=== PATIENT | female | born 1945 | race Caucasian/White ===

== ENCOUNTER → 2017-03-26 | Outpatient (CLI) | payer MEDICARE, OTHER ==
--- NOTE | 2017-03-26 15:56 | RADIOLOGY REPORT (SQ) ---
EXAM DESCRIPTION: CT CHEST WITHOUT COMPLETED DATE/TIME: 03/26/2017 1:25 pm REASON FOR STUDY: SOLITARY PULMOMARY NODULE R91.1 SOLITARY PULMONARY NODULE COMPARISON: Chest CT scan and PET-CT scan dated July 2016 TECHNIQUE: CT scan performed of the chest without intravenous contrast. Images reviewed with lung, soft tissue and bone windows. Reconstructed coronal and sagittal MPR images reviewed. All images st ored on PACS. All CT scanners at this facility use dose modulation, iterative reconstruction, and/or weight based d osing when appropriate to reduce radiation dose to as low as reasonably achievable (ALARA). [facility]: Dose Right [facility]: CareDose [facility]: Dose Right [facility]: Teradose 4D [facility]: [facility] RADIATION DOSE: 5.35 mGy. LIMITATIONS: No technical limitations. FINDINGS: LUNGS AND PLEURA: The previously described chronic appearing changes appears stable. No a cute consolidations or pleural effusions are identified. The previously described findings consisten t with pulmonary fibrosis in the periphery of both lower lobes appears stable. The previously descri bed spiculated nodule in the right upper lobe is again identified measuring 12.2 x 12.2 mm on the cur rent study. This nodule demonstrated increased metabolic activity on the previous PET-CT scan suspic ious for neoplastic process. No acute consolidations or pleural effusions are identified. HILAR AND MEDIASTINAL STRUCTURES: The previously described nonenlarged mediastinal lymph nodes appear s stable. HEART AND VASCULAR STRUCTURES: No aneurysm. No pericardial effusion. Coronary artery calcifications are identified. UPPER ABDOMEN: No significant findings. Limited exam. THYROID AND OTHER SOFT TISSUES: No masses. No adenopathy. BONES: No significant finding. HARDWARE: None in the chest. OTHER: No other significant findings. IMPRESSION: The previously described spiculated nodule in the right upper lobe is again identified a s noted above. This nodule demonstrated increased metabolic activity on the previous PET-CT scan susp icious for neoplastic process. No acute consolidations or pleural effusions are identified. The pre viously described chronic appearing changes appears stable. Other findings as noted above. TECHNICAL DOCUMENTATION: JOB ID: [id number] Quality ID # [id number]: Final reports with documentation of one or more dose reduction techniques (e.g., Au tomated exposure control, adjustment of the mA and/or kV according to patient size, use of iterative reconstruction technique) 2010 [employer]- All Rights Reserved
== END ==
LOC: RAD 12:59
PROVIDERS: ATTEND Internal Medicine
DX: R91.1 Solitary pulmonary nodule (principal)
CPT/HCPCS: 71250

== ENCOUNTER 2017-04-06 14:30 | Outpatient (CLI) | payer MEDICARE, OTHER ==
[~2017-04-06 14:30] MED LIST: ACETAMINOPHEN 325 MG TABLET PO PRN; DIPHENHYDRAMINE HCL 25 MG CAPSULE PO PRN; FUROSEMIDE INJ/PF 20 MG/2 ML SDV IV PRN; NORMAL SALINE 1000 ML 1,000 ML IV PRN
[2017-04-06 14:55] LABS: HEMATOCRIT 27.1 % (36.0-47.0); HGB HCT DIFFERENCE -0.1; MEAN CORPUSCULAR HGB CONC 33.2 g/dL (32.0-36.0); MEAN CORPUSCULAR VOLUME 91 fl (80-97); RED BLOOD COUNT 2.99 10^6/uL (3.72-5.28); RED CELL DISTRIBUTION WIDTH 14.7 % (11.5-14.0); WHITE BLOOD COUNT 6.5 10^3/uL (4.0-10.5)
[2017-04-06 23:16] VITALS: BP 135/59
== END 2017-04-06 23:22 | disposition home or self-care (01) ==
LOC: II 14:30 → 2N 15:10 → II 23:22
PROVIDERS: ATTEND Internal Medicine
PROC: 30233N1 Transfusion of Nonautologous Red Blood Cells into Peripheral Vein, Percutaneous Approach (ICD-10-PCS; principal; 2017-04-06)
DX: R68.89 Other general symptoms and signs (principal)
CPT/HCPCS: 86900; 86901; 36415; 36430; 86850; 86920; P9016; A9270 ×2

== ENCOUNTER → 2017-09-20 | Outpatient (CLI) | payer MEDICARE, OTHER ==
--- NOTE | 2017-09-20 14:52 | RADIOLOGY REPORT (SQ) ---
EXAM DESCRIPTION: CT CHEST WITHOUT COMPLETED DATE/TIME: 09/20/2017 7:51 am REASON FOR STUDY: SOLITARY PULMONARY NODULE (R91.1), OTHER DISORDER OF LUNG (J98.4) R91.1 SOLITARY PULMONARY NODULE J98.4 OTHER DISORDERS OF LUNG COMPARISON: CT chest 07/20/2016, 03/26/2017 PET-CT 07/31/2016 TECHNIQUE: CT scan performed of the chest without intravenous contrast. Images reviewed with lung, soft tissue and bone windows. Reconstructed coronal and sagittal MPR images reviewed. All images st ored on PACS. All CT scanners at this facility use dose modulation, iterative reconstruction, and/or weight based d osing when appropriate to reduce radiation dose to as low as reasonably achievable (ALARA). [facility]: Dose Right [facility]: CareDose [facility]: Dose Right [facility]: Teradose 4D [facility]: [employer] RADIATION DOSE: Up-to-date CT equipment and radiation dose reduction techniques were employed. CTDIv ol: 5.6 mGy. DLP: 197 mGy-cm. mGy. LIMITATIONS: No technical limitations. FINDINGS: LUNGS AND PLEURA: On axial image 42, an 8 x 6 mm spiculated nodule is present in the right upper lobe with adjacent radiotherapy treatment markers (was 1.2 x 1.2 cm in size 03/26/2017). Remainder of the lungs demonstrate advanced changes of obstructive lung disease, diffuse peripheral p ulmonary fibrosis. No acute infiltrates. No pleural effusion. No pneumothorax. HILAR AND MEDIASTINAL STRUCTURES: 1.5 x 1.2 cm precarinal lymph node is present on axial image 22, un changed from 03/26/2017. Small hiatal hernia HEART AND VASCULAR STRUCTURES: No aneurysm. No pericardial effusion. Coronary stents are present UPPER ABDOMEN: Clips post cholecystectomy THYROID AND OTHER SOFT TISSUES: No masses. No adenopathy. BONES: Osteopenic. Multilevel thoracic degenerative disc changes. HARDWARE: None in the chest. OTHER: No other significant findings. IMPRESSION: Treatment response, with decrease in size of right upper lobe nodule compared to previou s CT exam 03/26/2017 TECHNICAL DOCUMENTATION: JOB ID: [id number] Quality ID # [id number]: Final reports with documentation of one or more dose reduction techniques (e.g., Au tomated exposure control, adjustment of the mA and/or kV according to patient size, use of iterative reconstruction technique) 2010 [employer]- All Rights Reserved
== END ==
LOC: RAD 07:35
PROVIDERS: ATTEND Internal Medicine
DX: R91.1 Solitary pulmonary nodule (principal); J98.4 Other disorders of lung
CPT/HCPCS: 71250

== ENCOUNTER 2017-10-13 12:07 | Outpatient (CLI) | payer MEDICARE, OTHER ==
[~2017-10-13 12:07] MED LIST changes: -ACETAMINOPHEN 325 MG TABLET PO PRN; -DIPHENHYDRAMINE HCL 25 MG CAPSULE PO PRN; +FERUMOXYTOL 510 MG in NORMAL SALINE 100 ML IV PRN; -FUROSEMIDE INJ/PF 20 MG/2 ML SDV IV PRN; -NORMAL SALINE 1000 ML 1,000 ML IV PRN; +NORMAL SALINE 250 ML IV PRN
[2017-10-13 12:42] VITALS: BP 134/61
== END 2017-10-13 13:22 | disposition home or self-care (01) ==
LOC: II 12:07 → 5TH 12:08 → II 13:22
PROVIDERS: ATTEND Internal Medicine
PROC: 3E033GC Introduction of Other Therapeutic Substance into Peripheral Vein, Percutaneous Approach (ICD-10-PCS; principal; 2017-10-13)
DX: D50.8 Other iron deficiency anemias (principal); N18.2 Chronic kidney disease, stage 2 (mild)
CPT/HCPCS: 96367; Q0138; 96365

== ENCOUNTER → 2018-03-09 | Outpatient (CLI) | payer MEDICARE, BC ==
--- NOTE | 2018-03-09 13:41 | RADIOLOGY REPORT (SQ) ---
EXAM DESCRIPTION: CT CHEST WITHOUT COMPLETED DATE/TIME: 03/09/2018 1:13 pm REASON FOR STUDY: PULMONARY NODULE (R91.1) R91.1 SOLITARY PULMONARY NODULE COMPARISON: 09/20/2017 TECHNIQUE: CT scan performed of the chest without intravenous contrast. Images reviewed with lung, soft tissue and bone windows. Reconstructed coronal and sagittal MPR images reviewed. All images st ored on PACS. All CT scanners at this facility use dose modulation, iterative reconstruction, and/or weight based d osing when appropriate to reduce radiation dose to as low as reasonably achievable (ALARA). [facility]: Dose Right [facility]: CareDose [facility]: Dose Right [facility]: Teradose 4D [facility]: [employer] RADIATION DOSE: CT Rad equipment meets quality standard of care and radiation dose reduction techniq ues were employed. CTDIvol: 4.9 mGy. DLP: 195 mGy-cm. mGy. LIMITATIONS: No technical limitations. FINDINGS: LUNGS AND PLEURA: Right upper lobe ground-glass nodule faintly visualized image 38 measuri ng 4 mm in maximum diameter, previously about 6 x 8 mm. Centrilobular and paraseptal emphysema. No suspicious developing nodules. No effusions. HILAR AND MEDIASTINAL STRUCTURES: No identified masses or abnormal nodes. No obvious aneurysm. HEART AND VASCULAR STRUCTURES: No aneurysm. No pericardial effusion. UPPER ABDOMEN: No significant findings. Limited exam. THYROID AND OTHER SOFT TISSUES: No masses. No adenopathy. BONES: No significant finding. HARDWARE: None in the chest. OTHER: No other significant findings. IMPRESSION: Good treatment response. Further decrease in size of right upper lobe nodule. TECHNICAL DOCUMENTATION: JOB ID: [id number] Quality ID # [id number]: Final reports with documentation of one or more dose reduction techniques (e.g., Au tomated exposure control, adjustment of the mA and/or kV according to patient size, use of iterative reconstruction technique) 2010 [employer]- All Rights Reserved Reading location - IP/workstation name: [email or web address]
== END ==
LOC: RAD 12:51
PROVIDERS: ATTEND Internal Medicine
DX: R91.1 Solitary pulmonary nodule (principal)
CPT/HCPCS: 71250

== ENCOUNTER → 2018-03-15 | Outpatient (CLI) | payer MEDICARE, BC ==
[2018-03-17 11:40] LABS: ANTICHROMATIN AB <0.2 AI (0.0-0.9); CENTROMERE B AB <0.2 AI (0.0-0.9); JO-1 ANTIBODY (ANACOMP) <0.2 AI (0.0-0.9); RNP AB <0.2 AI (0.0-0.9); SCLERODERMA-70 ANTIBODIES <0.2 AI (0.0-0.9); SJOGREN'S ANTI-SS-B AB <0.2 AI (0.0-0.9); SJOGREN'S SS-A ANTIBODY 0.2 AI (0.0-0.9); SMITH AB ANA <0.2 AI (0.0-0.9)
[2018-03-17 11:58] LABS: DNA DOUBLE STRAND ANTIBODY ANA 1 IU/mL (0-9)
[2018-03-17 15:38] LABS: CYTOPLASMIC (C-ANCA) <1:20 titer (Neg:<1:20)
[2018-03-18 13:46] LABS: ATYPICAL PANCA <1:20 titer (Neg:<1:20); PERINUCLEAR (P-ANCA) <1:20 titer (Neg:<1:20)
== END ==
LOC: OD 14:36
PROVIDERS: ATTEND Physician Assistant
DX: R06.00 Dyspnea, unspecified (principal)
CPT/HCPCS: 36415; 86021; 86225; 86235; 86430

== ENCOUNTER 2018-03-21 09:42 | Emergency (ER) | payer MEDICARE, BC ==
[2018-03-21] MEDS ORDERED: ACETAMINOPHEN 325 MG TABLET PO ONE (10:02)
--- NOTE | 2018-03-21 10:04 | ER Document Report ---
ED Medical Screen (RME) - General Chief Complaint: Swelling of Lower Extremity Stated Complaint: FEET PAIN Time Seen by Provider: 03/21/18 09:56 Notes: RAPID MEDICAL EVALUATION DISCLOSURE I have seen this patient as part of a Rapid Medical Evaluation and, if applicable, placed any initially appropriate orders. The patient will be seen and fully evaluated, including a full history and physical exam, by a provider ( in Main ED or Fast Track) when a room becomes available. 72-year-old female here with complaints of low back pain that started 1 week ago and has progressively worsened. The pain is radiating down her legs. Pain is worse with movement. Pain is improved with minimizing movement. She also complains of bilateral lower extremity swelling (without shortness of breath) that has been episodically ongoing however over the past week she has had a daily and is worse as the day goes on but very minimal in the morning. She denies any history of kidney failure. Eating drinking urinating per usual. EXAM No lower extremity edema/swelling No midline spine TTP or step-off No lumbar paraspinal muscle tenderness TRAVEL OUTSIDE OF THE [place] IN LAST 30 DAYS: No - Related Data Allergies/Adverse Reactions: No Known Allergies Allergy (Verified 03/21/18 09:56) Past Medical History - Social History Chew tobacco use (# tins/day): No Frequency of alcohol use: None Drug Abuse: None - Past Medical History Cardiac Medical History: Reports: Hx Coronary Artery Disease, Hx Hypercholesterolemia, Hx Hypertension Denies: Hx Heart Attack Pulmonary Medical History: Reports: Hx Asthma, Hx Pneumonia Denies: Hx Bronchitis, Hx COPD Neurological Medical History: Denies: Hx Cerebrovascular Accident, Hx Seizures Endocrine Medical History: Reports: Hx Diabetes Mellitus Type 2 Renal/ Medical History: Denies: Hx Peritoneal Dialysis GI Medical History: Reports: Hx Gastroesophageal Reflux Disease, Hx Irritable Bowel Musculoskeltal Medical History: Denies Hx Arthritis Psychiatric Medical History: Reports: Hx Anxiety, Hx Depression Past Surgical History: Reports: Hx Cardiac Catheterization, Hx Cholecystectomy, Hx Coronary Stent - x1 November 2014, Hx Neurologic Surgery - Posterior cervical fusion with cadaver bone. Left carpal tunnel release. - Immunizations Hx Diphtheria, Pertussis, Tetanus Vaccination: Yes Physical Exam - Vital signs Vitals: Temp Pulse Resp BP Pulse Ox 98.0 F 76 19 139/76 H 96 03/21/18 09:51 03/21/18 09:51 03/21/18 09:51 03/21/18 09:51 03/21/18 09:51 Course - Vital Signs Vital signs: Temp Pulse Resp BP Pulse Ox 98.0 F 76 19 139/76 H 96 03/21/18 09:51 03/21/18 09:51 03/21/18 09:51 03/21/18 09:51 03/21/18 09:51
[2018-03-21 10:44] LABS: ABSOLUTE BASOPHILS # (AUTO) 0.1 10^3/uL (0.0-0.2); ABSOLUTE EOSINOPHILS # (AUTO) 0.2 10^3/uL (0.0-0.6); ABSOLUTE LYMPHOCYTES (AUTO) 1.4 10^3/uL (0.5-4.7); ABSOLUTE MONOCYTES (AUTO) 0.6 10^3/uL (0.1-1.4); ABSOLUTE NEUT (AUTO) 5.3 10^3/uL (1.7-8.2); BASOPHILS % (AUTO) 0.9 % (0-2); EOSINOPHILS % (AUTO) 2.3 % (0-6); HEMOGLOBIN 9.4 g/dL (12.0-15.5); LYMPHOCYTES % (AUTO) 17.9 % (13-45); MEAN CORPUSCULAR HEMOGLOBIN 33.1 pg (27.0-33.4); MEAN CORPUSCULAR HGB CONC 33.7 g/dL (32.0-36.0); MEAN CORPUSCULAR VOLUME 98 fl (80-97); MONOCYTES % (AUTO) 8.4 % (3-13); PLATELET COUNT 350 10^3/uL (150-450); RED BLOOD COUNT 2.85 10^6/uL (3.72-5.28); RED CELL DISTRIBUTION WIDTH 15.6 % (11.5-14.0); SEGMENTED NEUTROPHILS % (AUTO) 70.5 % (42-78); TOTAL CELLS COUNTED % (AUTO) 100 %; WHITE BLOOD COUNT 7.6 10^3/uL (4.0-10.5)
--- NOTE | 2018-03-21 11:28 | RADIOLOGY REPORT (SQ) ---
EXAM DESCRIPTION: L SPINE WHOLE COMPLETED DATE/TIME: 03/21/2018 11:00 am REASON FOR STUDY: low back pain; eval COMPARISON: None. NUMBER OF VIEWS: Five views including obliques. TECHNIQUE: AP, lateral, oblique, and sacral radiographic images acquired of the lumbar spine. LIMITATIONS: None. FINDINGS: MINERALIZATION: Normal. SEGMENTATION: Normal. No transitional anatomy. ALIGNMENT: Normal. VERTEBRAE: Maintained height. No fracture or worrisome bone lesion. DISCS: Preserved height. Mild anterior osteophytic lipping is identified at multiple levels P POSTERIOR ELEMENTS: Pedicles and facets are intact. No pars defect or posterior arch defects. HARDWARE: None in the spine. PARASPINAL SOFT TISSUES: Normal. PELVIS: Intact as visualized. No fractures or worrisome bone lesions. SI joints intact. OTHER: Extensive vascular calcifications are identified in the abdominal aorta IMPRESSION: No significant vertebral compression or disc space reduction is seen. Mild degenerative changes as noted above. Other findings as noted above TECHNICAL DOCUMENTATION: JOB ID: [id number] [employer] All Rights Reserved Reading location - IP/workstation name: [email or web address]
[2018-03-21 13:04] LABS: ANION GAP 16 (5-19); BLOOD UREA NITROGEN 13 mg/dL (7-20); CALCIUM 8.4 mg/dL (8.4-10.2); CARBON DIOXIDE 26 mmol/L (22-30); CHLORIDE 102 mmol/L (98-107); GLUCOSE 91 mg/dL (75-110); POTASSIUM 4.3 mmol/L (3.6-5.0); SODIUM 144.2 mmol/L (137-145)
[2018-03-21] MEDS ORDERED: HYDROCODONE/ACETAMINOPHEN 5-325 MG TABLET PO ONE (14:44)
--- NOTE | 2018-03-21 14:44 | ER Document Report ---
ED General - General Chief Complaint: Swelling of Lower Extremity Stated Complaint: FEET PAIN Time Seen by Provider: 03/21/18 09:56 Mode of Arrival: Ambulatory Information source: Patient Notes: Patient presents complaining of low back pain for the past week that radiates into bilateral upper thigh area. Patient states that she is also had bilateral lower extremity swelling from the knee distally off and on for the past week. Patient states she wakes up in the morning has no swelling and gradually by the end of the day she has swelling. Patient reports a history of anemia and states that she is due to have an iron infusion this week. TRAVEL OUTSIDE OF THE [place] IN LAST 30 DAYS: No - HPI Onset: Last week Onset/Duration: Gradual Quality of pain: Sharp Pain Level: 4 Associated symptoms: Leg swelling, Other - Low back pain. denies: Chest pain, Nonproductive cough, Productive cough, Fever, Nausea, Vomiting, Shortness of breath Exacerbated by: Movement Relieved by: Denies Similar symptoms previously: No Recently seen / treated by doctor: No - Related Data Allergies/Adverse Reactions: No Known Allergies Allergy (Verified 03/21/18 14:03) Past Medical History - General Information source: Patient - Social History Smoking Status: Never Smoker Chew tobacco use (# tins/day): No Frequency of alcohol use: None Drug Abuse: None Occupation: None Lives with: Family Family History: Reviewed & Not Pertinent Patient has suicidal ideation: No Patient has homicidal ideation: No - Past Medical History Cardiac Medical History: Reports: Hx Coronary Artery Disease, Hx Hypercholesterolemia, Hx Hypertension Denies: Hx Heart Attack Pulmonary Medical History: Reports: Hx Asthma, Hx Pneumonia Denies: Hx Bronchitis, Hx COPD Neurological Medical History: Denies: Hx Cerebrovascular Accident, Hx Seizures Endocrine Medical History: Reports: Hx Diabetes Mellitus Type 2 Renal/ Medical History: Denies: Hx Peritoneal Dialysis GI Medical History: Reports: Hx Gastroesophageal Reflux Disease, Hx Irritable Bowel Musculoskeltal Medical History: Denies Hx Arthritis Psychiatric Medical History: Reports: Hx Anxiety, Hx Depression Past Surgical History: Reports: Hx Cardiac Catheterization, Hx Cholecystectomy, Hx Coronary Stent - x1 November 2014, Hx Neurologic Surgery - Posterior cervical fusion with cadaver bone. Left carpal tunnel release. - Immunizations Hx Diphtheria, Pertussis, Tetanus Vaccination: Yes Hx Pneumococcal Vaccination: 11/01/12 Review of Systems - Review of Systems Constitutional: No symptoms reported. denies: Fever, Recent illness EENT: No symptoms reported Cardiovascular: No symptoms reported. denies: Chest pain Respiratory: No symptoms reported. denies: Cough, Short of breath Gastrointestinal: No symptoms reported. denies: Abdominal pain, Nausea, Vomiting Genitourinary: No symptoms reported. denies: Dysuria, Incontinence, Retention Female Genitourinary: No symptoms reported Musculoskeletal: Back pain, Leg swelling Skin: No symptoms reported Hematologic/Lymphatic: No symptoms reported Neurological/Psychological: No symptoms reported Physical Exam - Vital signs Vitals: Temp Pulse Resp BP Pulse Ox 98.0 F 76 19 139/76 H 96 03/21/18 09:51 03/21/18 09:51 03/21/18 09:51 03/21/18 09:51 03/21/18 09:51 - General General appearance: Appears well, Alert In distress: None - HEENT Head: Normocephalic, Atraumatic Eyes: Normal Nasal: Normal Mouth/Lips: Normal Mucous membranes: Normal Neck: Normal, Supple. No: Lymphadenopathy - Respiratory Respiratory status: No respiratory distress Chest status: Nontender Breath sounds: Normal Chest palpation: Normal - Cardiovascular Rhythm: Regular Heart sounds: S1 appreciated, S2 appreciated Pulses: Normal: Dorsalis pedis - Abdominal Inspection: Normal Distension: No distension Bowel sounds: Normal Tenderness: Nontender - Back Back: Tender - Lumbar paraspinal tenderness, no step-off or deformity. No: Deformity/step-off, CVA tenderness - Extremities General upper extremity: Normal inspection, Normal ROM. No: Edema General lower extremity: Normal inspection, Normal ROM. No: Edema - Neurological Neuro grossly intact: Yes Cognition: Normal Hooper Coma Scale Eye Opening: Spontaneous Hooper Coma Scale Verbal: Oriented Luis Coma Scale Motor: Obeys Commands Hooper Coma Scale Total: 15 Speech: Normal Motor strength normal: LUE, RUE, LLE, RLE Notes: Normal strength to bilateral lower extremities, no footdrop, no saddle anesthesia - Psychological Associated symptoms: Normal affect, Normal mood - Skin Skin Temperature: Warm Skin Moisture: Dry Skin Color: Normal Course - Re-evaluation Re-evalutation: 03/21/18 Patient without any objective lower extremity swelling. The patient presents with low back pain without signs of spinal cord compression, cauda equina syndrome, infection, aneurysm, or other serious etiology. The patient is neurologically intact. Given the extremely risk of these diagnoses further testing and evaluation for these possibilities does not appear to be indicated at this time. Patient has been instructed to return if the symptoms worsen or change in any way. - Vital Signs Vital signs: Temp Pulse Resp BP Pulse Ox 98.6 F 62 19 128/97 H 97 03/21/18 15:04 03/21/18 15:04 03/21/18 09:51 03/21/18 15:04 03/21/18 15:04 - Laboratory Result Diagrams: 03/21/18 10:25 03/21/18 10:25 Laboratory results interpreted by me: 03/21/18 03/21/18 10:25 10:25 RBC 2.85 L Hgb 9.4 L Hct 28.0 L MCV 98 H RDW 15.6 H Est GFR (Non-Af Amer) 56 L 03/21/18 19:10 Labs- Entire Visit 03/21/18 03/21/18 10:25 10:25 WBC 7.6 RBC 2.85 L Hgb 9.4 L Hct 28.0 L MCV 98 H MCH 33.1 MCHC 33.7 RDW 15.6 H Plt Count 350 Seg Neutrophils % 70.5 Lymphocytes % 17.9 Monocytes % 8.4 Eosinophils % 2.3 Basophils % 0.9 Absolute Neutrophils 5.3 Absolute Lymphocytes 1.4 Absolute Monocytes 0.6 Absolute Eosinophils 0.2 Absolute Basophils 0.1 Sodium 144.2 Potassium 4.3 Chloride 102 Carbon Dioxide 26 Anion Gap 16 BUN 13 Creatinine 0.98 Est GFR ( Amer) > 60 Est GFR (Non-Af Amer) 56 L Glucose 91 Calcium 8.4 - Diagnostic Test Radiology reviewed: Reports reviewed Discharge - Discharge Clinical Impression: Anemia Qualifiers: Anemia type: unspecified type Qualified Code(s): D64.9 - Anemia, unspecified Low back pain Qualifiers: Chronicity: unspecified Back pain laterality: bilateral Sciatica presence: unspecified whether sciatica present Qualified Code(s): M54.5 - Low back pain Condition: Stable Disposition: HOME, SELF-CARE Instructions: Anemia ([facility]), Low Back Pain ([facility]), Oral Narcotic Medication ([facility]) Additional Instructions: Return immediately for any new or worsening symptoms Followup with your primary care provider, call tomorrow to make a followup appointment Do not take the pain pills with your Ativan, these medications should not be mixed together. Prescriptions: Hydrocodone/Acetaminophen [Satsuma 5-325 Tablet] 1 each PO Q6 PRN #15 tablet PRN Reason: Lidocaine [Lidoderm 5% (700 mg) Transdermal Patch] 1 patch TP DAILY #7 adh..patch Referrals: ERIN SARAVIA PA [Primary Care Provider] - Follow up as needed
[2018-03-21] MEDS ORDERED: LIDOCAINE 5% (700 MG) TRANSDERMAL ADH..PATCH TP ONE (14:45)
[2018-03-21 15:39] VITALS: BP 128/97
== END 2018-03-21 15:20 | disposition home or self-care (01) ==
LOC: ER 09:42
DX: M54.5 Low back pain (principal); D64.9 Anemia, unspecified; I25.10 Atherosclerotic heart disease of native coronary artery without angina pectoris; I10 Essential (primary) hypertension; J45.909 Unspecified asthma, uncomplicated; E11.9 Type 2 diabetes mellitus without complications; Z95.5 Presence of coronary angioplasty implant and graft
CPT/HCPCS: 99284; 36415; 85025; 80048; 72110; A9270 ×2

== ENCOUNTER → 2019-02-15 | Outpatient (CLI) | payer MEDICARE, OTHER ==
--- NOTE | 2019-02-15 12:32 | RADIOLOGY REPORT (SQ) ---
EXAM DESCRIPTION: CT CHEST WITHOUT COMPLETED DATE/TIME: 02/15/2019 10:21 am REASON FOR STUDY: SOLITARY PULMONARY NODULE R91.1 SOLITARY PULMONARY NODULE J98.4 OTHER DISORDERS OF LUNG COMPARISON: 03/09/2018 TECHNIQUE: CT scan performed of the chest without intravenous contrast. Images reviewed with lung, soft tissue and bone windows. Reconstructed coronal and sagittal MPR images reviewed. All images st ored on PACS. All CT scanners at this facility use dose modulation, iterative reconstruction, and/or weight based d osing when appropriate to reduce radiation dose to as low as reasonably achievable (ALARA). [facility]: Dose Right [facility]: CareDose [facility]: Dose Right [facility]: Teradose 4D [facility]: [employer] RADIATION DOSE: CT Rad equipment meets quality standard of care and radiation dose reduction techniq ues were employed. CTDIvol: 4.5 mGy. DLP: 145 mGy-cm. mGy. LIMITATIONS: No technical limitations. FINDINGS: LUNGS AND PLEURA: There is been further decrease in conspicuity of the irregular scarring within the right upper lobe. No new nodular component. No evidence of new discrete nodules or carrie s. Centrilobular and paraseptal emphysema. Additional bilateral lower lobe interstitial thickening with honeycombing versus paraseptal emphysema, stable. No pleural effusion or pneumothorax. HILAR AND MEDIASTINAL STRUCTURES: There is mildly increased size of the precarinal adenopathy. Large st precarinal node measures 12 mm in short axis, previously 7 mm. No new discrete hilar or axillary adenopathy. HEART AND VASCULAR STRUCTURES: No pericardial effusion. Scattered dense three-vessel coronary athero sclerosis. Normal heart size. UPPER ABDOMEN: No with a evidence of acute process. THYROID AND OTHER SOFT TISSUES: No masses. No adenopathy. BONES: Decreased osseous mineralization. No discrete lytic or blastic osseous lesions. No acute bon y abnormality. HARDWARE: None in the chest. OTHER: No other significant findings. IMPRESSION: 1. Further decreased conspicuity the previously described right upper lobe nodule. No residual discrete nodule. 2. Increased size of precarinal lymph node now measuring up to 12 mm, moderately suspicious for meta static disease. TECHNICAL DOCUMENTATION: JOB ID: [id number] Quality ID # [id number]: Final reports with documentation of one or more dose reduction techniques (e.g., Au tomated exposure control, adjustment of the mA and/or kV according to patient size, use of iterative reconstruction technique) 2010 [employer]- All Rights Reserved Reading location - IP/workstation name: [email or web address]
== END ==
LOC: RAD 10:06
PROVIDERS: ATTEND Internal Medicine
DX: J98.4 Other disorders of lung (principal); R91.1 Solitary pulmonary nodule
CPT/HCPCS: 71250

== ENCOUNTER → 2019-03-07 | Outpatient (CLI) | payer MEDICARE, OTHER ==
--- NOTE | 2019-03-09 15:02 | RADIOLOGY REPORT (SQ) ---
EXAM DESCRIPTION: PET CT SKULL/THIGH COMPLETED DATE/TIME: 03/09/2019 2:52 pm REASON FOR STUDY: SOLITARY PULMONARY NODULE (R91.1) R91.1 SOLITARY PULMONARY NODULE COMPARISON: PET-CT 07/31/2016 RADIONUCLIDE AND DOSE: 16.3 mCi F18 FDG The route of agent administration: Intravenous FASTING BLOOD SUGAR: 99 mg/dl CONTRAST TYPE AND DOSE: No CT contrast given. TECHNIQUE: Blood glucose level was verified. Above dose of FDG was injected intravenously. 2-D seg mented attenuation correction images were obtained from the base of the skull to the midthighs. Nonc ontrast CT images were obtained for attenuation correction and fusion with emission images. CT image s were performed without oral or intravenous contrast and are not sensitive for parenchymal lesions. A series of overlapping emission PET images were obtained. [facility] by the radiologist. Images stored on PACS. LIMITATIONS: None. FINDINGS: HEAD AND NECK: No areas of abnormal metabolic activity in the soft tissues of the head and neck. CHEST: Patient has radiotherapy treatment markers in the right upper lobe. The previously treated sp iculated masses barely visible, and non metabolic measuring about 5 mm in size. There is metabolically active mediastinal adenopathy as follows: Right paratracheal 4R lymph node 2.4 x 1.7 cm axial image 59 with SUV 3.1 (was 1.2 x 0.6 cm on 016) Precarinal 4R lymph node 1.8 x 1.3 cm axial image 63 with SUV 3.0 (was 1.3 x 0.8 cm on 07/31/2016). ABDOMEN AND PELVIS: No areas of abnormal metabolic activity in the abdomen or pelvis. Expected physi ologic activity is present in the genitourinary system and bowel. PROXIMAL LOWER EXTREMITIES: No areas of abnormal metabolic activity in the soft tissues of the lower extremities. BONES: No abnormal metabolic activity in the visualized skeleton. ADDITIONAL CT FINDINGS: No additional significant findings on the noncontrast CT images. OTHER: Liver background activity 2.2 SUV. Blood pool background activity 1.6 SUV IMPRESSION: Right upper lobe nodule seen on 07/31/2016 is barely visible today, measuring about 5 mm in size. Increase in size of mediastinal lymph nodes with mild metabolic activity. TECHNICAL DOCUMENTATION: JOB ID: [id number]- All Rights Reserved Reading location - IP/workstation name: [email or web address]
== END ==
LOC: RAD 15:43
PROVIDERS: ATTEND Internal Medicine
DX: R91.1 Solitary pulmonary nodule (principal); J98.4 Other disorders of lung
CPT/HCPCS: 78815; A9552

== ENCOUNTER 2019-05-17 12:12 | Inpatient (IN) | payer MEDICARE, OTHER ==
[2019-05-17 12:49] LABS: ABSOLUTE LYMPHOCYTES (AUTO) 0.8 10^3/uL (0.5-4.7); ABSOLUTE MONOCYTES (AUTO) 0.4 10^3/uL (0.1-1.4); ABSOLUTE NEUT (AUTO) 7.7 10^3/uL (1.7-8.2); BASOPHILS % (AUTO) 0.4 % (0-2); EOSINOPHILS % (AUTO) 0.5 % (0-6); HEMATOCRIT 33.3 % (36.0-47.0); HEMOGLOBIN 11.5 g/dL (12.0-15.5); LYMPHOCYTES % (AUTO) 8.5 % (13-45); MEAN CORPUSCULAR HEMOGLOBIN 30.8 pg (27.0-33.4); MEAN CORPUSCULAR HGB CONC 34.5 g/dL (32.0-36.0); MEAN CORPUSCULAR VOLUME 89 fl (80-97); MONOCYTES % (AUTO) 4.6 % (3-13); PLATELET COUNT 292 10^3/uL (150-450); RED BLOOD COUNT 3.73 10^6/uL (3.72-5.28); TOTAL CELLS COUNTED % (AUTO) 100 %; WHITE BLOOD COUNT 8.9 10^3/uL (4.0-10.5)
[2019-05-17] MEDS ORDERED: METHYLPREDNISOLONE INJ 125 MG/2 ML SDV IV ONE (13:03)
--- NOTE | 2019-05-17 13:03 | ER Document Report ---
ED Respiratory Problem - General Chief Complaint: Breathing Difficulty Stated Complaint: SHORTNESS OF BREATH Time Seen by Provider: 05/17/19 12:48 Primary Care Provider: MIGUEL ANGEL ARMSTRONG MD [Primary Care Provider] - Follow up as needed Notes: 73-year-old female patient emergency department chief complaint of worsening shortness of breath. Patient is seen by pulmonology. They have been following, Dr. Núñez. Apparently patient having worsening shortness of breath. On oxygen but requiring more. Daughter is at bedside and states that she has had very remarkable decline. Does not smoke. Denies any significant chest pain. Does have a nodule that is being investigated by oncology. Recent PET scan performed. Recent biopsy performed but not enough tissue to make a diagnosis. Scheduled for repeat biopsy. Does have significant heart history as well with 2 stents. On Plavix. TRAVEL OUTSIDE OF THE [place] IN LAST 30 DAYS: No - HPI Patient complains to provider of: Short of breath Duration: Continuous Quality of pain: No pain - Related Data Allergies/Adverse Reactions: No Known Allergies Allergy (Verified 03/21/18 14:03) Past Medical History - General Information source: Patient, Relative, [facility] Records - Social History Smoking Status: Former Smoker Chew tobacco use (# tins/day): No Frequency of alcohol use: None Drug Abuse: None Lives with: Family Family History: Reviewed & Not Pertinent Patient has suicidal ideation: No Patient has homicidal ideation: No - Past Medical History Cardiac Medical History: Reports: Hx Coronary Artery Disease, Hx Hypercholesterolemia, Hx Hypertension Denies: Hx Heart Attack Pulmonary Medical History: Reports: Hx Asthma, Hx COPD, Hx Pneumonia Denies: Hx Bronchitis Neurological Medical History: Denies: Hx Cerebrovascular Accident, Hx Seizures Endocrine Medical History: Reports: Hx Diabetes Mellitus Type 2 Renal/ Medical History: Denies: Hx Peritoneal Dialysis GI Medical History: Reports: Hx Gastroesophageal Reflux Disease, Hx Irritable Bowel Musculoskeletal Medical History: Denies Hx Arthritis Psychiatric Medical History: Reports: Hx Anxiety, Hx Depression Past Surgical History: Reports: Hx Cardiac Catheterization - 2 stents, Hx Cholecystectomy, Hx Coronary Stent - x1 November 2014, Hx Neurologic Surgery - Posterior cervical fusion with cadaver bone. Left carpal tunnel release. - Immunizations Hx Diphtheria, Pertussis, Tetanus Vaccination: Yes Hx Pneumococcal Vaccination: 11/01/12 Review of Systems - Review of Systems Notes: Constitutional: denies: Chills, Diaphoresis, Fever, Malaise, Weakness EENT: denies: Eye discharge, Blurred vision, Tearing, Double vision, Nose congestion, Nose discharge, Throat swelling, Mouth pain Cardiovascular: denies: Palpitations, Heart racing, Orthopnea, +Dyspnea, -Chest pain Respiratory: denies: Cough, Hurts to breathe, Wheezing,+ Shortness of breath Gastrointestinal: denies: Abdominal pain, Diarrhea, Nausea, Vomiting, Black stools, bright red blood in stool Genitourinary: denies: Burning, Dysuria, Discharge, Frequency, Flank pain, Hematuria Musculoskeletal: denies: Joint pain, Joint swelling, Muscle pain, Muscle stiffness, back pain Hematologic/Lymphatic: denies: Anemia, Easy bleeding, Easy bruising, Blood clots Neurological/Psychological: denies: Confusion, Dementia, Depression, Loss of consciousness Skin: No lesions, no masses, no skin breakdown, no abscesses Physical Exam - Vital signs Vitals: Temp 97.5 F 05/17/19 12:24 Interpretation: Normal - General General appearance: Appears well, Alert - HEENT Head: Normocephalic, Atraumatic Eyes: Normal Pupils: PERRL - Respiratory Respiratory status: No respiratory distress Chest status: Nontender Breath sounds: Decreased air movement, Wheezing Chest palpation: Normal - Cardiovascular Rhythm: Regular Heart sounds: Normal auscultation Murmur: No - Abdominal Inspection: Normal Distension: No distension Bowel sounds: Normal Tenderness: Nontender Organomegaly: No organomegaly - Back Back: Normal, Nontender - Extremities General upper extremity: Normal inspection, Nontender, Normal color, Normal ROM, Normal temperature General lower extremity: Normal inspection, Nontender, Normal color, Normal ROM, Normal temperature, Normal weight bearing. No: Theresa's sign - Neurological Neuro grossly intact: Yes Cognition: Normal Orientation: AAOx4 [place] Coma Scale Eye Opening: Spontaneous [place] Coma Scale Verbal: Oriented [place] Coma Scale Motor: Obeys Commands [place] Coma Scale Total: 15 Speech: Normal Motor strength normal: LUE, RUE, LLE, RLE Sensory: Normal - Psychological Associated symptoms: Normal affect, Normal mood - Skin Skin Temperature: Warm Skin Moisture: Dry Skin Color: Normal Course - Re-evaluation Re-evalutation: 05/17/19 13:56 Patient was seen on arrival. Had significant work of breathing so placed on BiPAP. Tolerating it well. Coarse breath sounds bilateral bases. Currently she feels much better on the BiPAP. Her heart rate 67. EKG has some borderline T wave abnormalities in some inverted T waves. 05/17/19 14:17 Patient was appears to be CHF. Borderline indeterminate troponin. BNP is 12,900. At this time I am giving Solu-Medrol. Continuing with BiPAP. Will need admission. Consulted hospitalist who will admit at this time. Laboratory 05/17/19 05/17/19 05/17/19 12:05 12:05 12:05 WBC 8.9 RBC 3.73 Hgb 11.5 L Hct 33.3 L MCV 89 MCH 30.8 MCHC 34.5 RDW 17.0 H Plt Count 292 Seg Neutrophils % 86.0 H Lymphocytes % 8.5 L Monocytes % 4.6 Eosinophils % 0.5 Basophils % 0.4 Absolute Neutrophils 7.7 Absolute Lymphocytes 0.8 Absolute Monocytes 0.4 Absolute Eosinophils 0.0 Absolute Basophils 0.0 PT INR APTT Carbonic Acid HCO3/H2CO3 Ratio ABG pH ABG pCO2 ABG pO2 ABG HCO3 ABG Total CO2 ABG O2 Saturation ABG Base Excess FiO2 Sodium 130.0 L Potassium 4.3 Chloride 87 L Carbon Dioxide 21 L Anion Gap 22 H BUN 19 Creatinine 1.61 H Est GFR ( Amer) 38 L Est GFR (Non-Af Amer) 31 L Glucose 108 Calcium 7.2 L Total Bilirubin 1.0 Direct Bilirubin 0.5 H Neonat Total Bilirubin Not Reportable Neonat Direct Bilirubin Not Reportable Neonat Indirect Bili Not Reportable AST 42 H ALT 14 Alkaline Phosphatase 82 Creatine Kinase 184 H CK-MB (CK-2) 1.28 Troponin I 0.036 NT-Pro-B Natriuret Pep Total Protein 8.4 H Albumin 4.5 05/17/19 05/17/19 05/17/19 12:05 12:05 13:30 WBC RBC Hgb Hct MCV MCH MCHC RDW Plt Count Seg Neutrophils % Lymphocytes % Monocytes % Eosinophils % Basophils % Absolute Neutrophils Absolute Lymphocytes Absolute Monocytes Absolute Eosinophils Absolute Basophils PT 16.2 H INR 1.29 APTT 31.6 Carbonic Acid Cancelled HCO3/H2CO3 Ratio Cancelled ABG pH Cancelled ABG pCO2 Cancelled ABG pO2 Cancelled ABG HCO3 Cancelled ABG Total CO2 Cancelled ABG O2 Saturation Cancelled ABG Base Excess Cancelled FiO2 Cancelled Sodium Potassium Chloride Carbon Dioxide Anion Gap BUN Creatinine Est GFR ( Amer) Est GFR (Non-Af Amer) Glucose Calcium Total Bilirubin Direct Bilirubin Neonat Total Bilirubin Neonat Direct Bilirubin Neonat Indirect Bili AST ALT Alkaline Phosphatase Creatine Kinase CK-MB (CK-2) Troponin I NT-Pro-B Natriuret Pep 49607 H Total Protein Albumin Chest X-Ray 05/17/19 12:21 IMPRESSION: Mild bibasilar predominant pulmonary fibrosis as seen on prior CT examination without acute abnormality of the lungs. - Vital Signs Vital signs: Temp Pulse Resp BP Pulse Ox 97.5 F 70 23 H 117/96 H 99 05/17/19 12:24 05/17/19 12:25 05/17/19 12:25 05/17/19 12:25 05/17/19 12:34 - Laboratory Result Diagrams: 05/17/19 12:05 05/17/19 12:05 Laboratory results interpreted by me: 05/17/19 05/17/19 05/17/19 12:05 12:05 12:05 Hgb 11.5 L Hct 33.3 L RDW 17.0 H Seg Neutrophils % 86.0 H Lymphocytes % 8.5 L PT 16.2 H Sodium 130.0 L Chloride 87 L Carbon Dioxide 21 L Anion Gap 22 H Creatinine 1.61 H Est GFR ( Amer) 38 L Est GFR (Non-Af Amer) 31 L Calcium 7.2 L Direct Bilirubin 0.5 H AST 42 H Creatine Kinase 184 H NT-Pro-B Natriuret Pep Total Protein 8.4 H 05/17/19 12:05 Hgb Hct RDW Seg Neutrophils % Lymphocytes % PT Sodium Chloride Carbon Dioxide Anion Gap Creatinine Est GFR ( Amer) Est GFR (Non-Af Amer) Calcium Direct Bilirubin AST Creatine Kinase NT-Pro-B Natriuret Pep 56259 H Total Protein - EKG Interpretation by Nd EKG shows normal: Sinus rhythm, [place], Intervals, QRS Complexes. abnormal: ST-T Waves - inVerted T wave in lead V4 and V5. Critical Care Note - Critical Care Note Total time excluding time spent on procedures (mins): 35 Comments: Respiratory distress, consultation with specialist for alternative history source (daughter) Discharge - Discharge Clinical Impression: COPD exacerbation, Hyponatremia, Acute renal insufficiency Congestive heart failure Qualifiers: Heart failure type: unspecified Heart failure chronicity: unspecified Qualified Code(s): I50.9 - Heart failure, unspecified Condition: Fair Disposition: ADMITTED INPATIENT Admitting Provider: Yuan (Hospitalist) Unit Admitted: IMCU Referrals: MIGUEL ANGEL ARMSTRONG MD [Primary Care Provider] - Follow up as needed
--- NOTE | 2019-05-17 13:06 | RADIOLOGY REPORT (SQ) ---
EXAM DESCRIPTION: CHEST SINGLE VIEW COMPLETED DATE/TIME: 05/17/2019 12:38 pm REASON FOR STUDY: bed 21 db COMPARISON: CT chest, 02/15/2019, chest radiograph, 02/26/2016 EXAM PARAMETERS: NUMBER OF VIEWS: One view. TECHNIQUE: Single frontal radiographic view of the chest acquired. RADIATION DOSE: NA LIMITATIONS: None. FINDINGS: LUNGS AND PLEURA: Unchanged mild bibasilar predominant pulmonary fibrosis. No acute airsp carisa opacity. MEDIASTINUM AND HILAR STRUCTURES: No masses. Contour normal. HEART AND VASCULAR STRUCTURES: Heart normal in size. Normal vasculature. BONES: No acute findings. HARDWARE: None in the chest. OTHER: No other significant finding. IMPRESSION: Mild bibasilar predominant pulmonary fibrosis as seen on prior CT examination without ac yumiko abnormality of the lungs. TECHNICAL DOCUMENTATION: JOB ID: [id number] [employer]- All Rights Reserved Reading location - IP/workstation name: [email or web address]
[2019-05-17 13:10] LABS: ALANINE AMINOTRANSFERASE 14 U/L (9-52); ALBUMIN 4.5 g/dL (3.5-5.0); ALKALINE PHOSPHATASE 82 U/L (38-126); ASPARTATE AMINO TRANSFERASE 42 U/L (14-36); BILIRUBIN,DIRECT 0.5 mg/dL (0.0-0.4); BLOOD UREA NITROGEN 19 mg/dL (7-20); CALCIUM 7.2 mg/dL (8.4-10.2); CARBON DIOXIDE 21 mmol/L (22-30); CHLORIDE 87 mmol/L (98-107); CREATINE KINASE 184 U/L (30-135); GLUCOSE 108 mg/dL (75-110); POTASSIUM 4.3 mmol/L (3.6-5.0); TOTAL PROTEIN 8.4 g/dL (6.3-8.2)
[2019-05-17 13:17] LABS: ANION GAP 22 (5-19)
[2019-05-17 13:18] LABS: INTERNATIONAL RATION (INR) 1.29; PARTIAL THROMBOPLASTIN TIME 31.6 SEC (23.5-35.8); PROTHROMBIN TIME 16.2 SEC (11.4-15.4)
[2019-05-17 13:21] LABS: CREATINE KINASE MB 1.28 ng/mL (<4.55)
[2019-05-17 13:30] LABS: TROPONIN I 0.036 ng/mL
[2019-05-17] MEDS ORDERED: ASPIRIN 325 MG TABLET PO ONE (14:04)
[2019-05-17] MEDS ORDERED: NORMAL SALINE 500 ML IV ONE (14:04)
[2019-05-17 14:40] LABS: ARTERIAL BLOOD BASE EXCESS -3.7 mmol/L; ARTERIAL BLOOD FIO2 35%; ARTERIAL BLOOD H2CO3 0.81 mmol/L (1.05-1.35); ARTERIAL BLOOD HCO3 18.9 mmol/L (20-24); ARTERIAL BLOOD O2 SATURATION 97.8 % (94-98); ARTERIAL BLOOD PCO2 26.9 mmHg (35-45); ARTERIAL BLOOD PH 7.47 (7.35-7.45); ARTERIAL BLOOD PO2 96.3 mmHg (80-100); ARTERIAL BLOOD TOTAL CO2 19.7 mmol/L (21-25)
[2019-05-17] MEDS ORDERED: TEMAZEPAM 15 MG CAPSULE PO PRN (16:42)
[2019-05-17] MEDS ORDERED: PROMETHAZINE HCL INJ 25 MG/1 ML VIAL IV PRN (16:42)
[2019-05-17] MEDS ORDERED: ONDANSETRON HCL INJ/PF 4 MG/2 ML SDV IV PRN (16:42)
[2019-05-17] MEDS ORDERED: ACETAMINOPHEN 325 MG TABLET PO PRN (16:42)
--- NOTE | 2019-05-17 16:54 | PDOC H&P ---
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 Denies any recent hospitalization, denies any recent travel, reports medication adherence, denies any smoking, denies any recent upper/lower respiratory infections. Patient endorses drinking about 8 bottles of 500 cc of water every 24 hours on top of daily coffee intake. Worsening dyspnea on exertion, reporting home SPO2 of 50s with minimal exertion. Denies any fever, chest pain, vomiting, abdominal pain, diarrhea, constipation, any urinary symptoms. In ED she was found to be hypoxic, with low sodium and elevated creatinine and elevated BNP. Patient was started on BiPAP with IV steroids and hospital was consulted for admission. Past Medical History Cardiac Medical History: Reports: Coronary Artery Disease, Hyperlipidema, Hypertension Denies: Myocardial Infarction Pulmonary Medical History: Reports: Asthma, Chronic Obstructive Pulmonary Disease (COPD), Pneumonia Denies: Bronchitis Neurological Medical History: Denies: Seizures Endocrine Medical History: Reports: Diabetes Mellitus Type 2 GI Medical History: Reports: Gastroesophageal Reflux Disease Musculoskeltal Medical History: Denies: Arthritis Psychiatric Medical History: Reports: Depression Hematology: Reports: Anemia Past Surgical History Past Surgical History: Reports: Cardiac Catheterization - 2 stents, Cholecystectomy, Coronary Stent - x1 November 2014 Social History Lives with: Family Smoking Status: Former Smoker Frequency of Alcohol Use: None Hx Recreational Drug Use: No Drugs: None Hx Prescription Drug Abuse: No Family History Family History: Reviewed & Not Pertinent Parental Family History Reviewed: Yes Children Family History Reviewed: Yes Sibling(s) Family History Reviewed.: Yes Medication/Allergy Home Medications: Aspirin [Ecotrin 81 mg EC Tablet] 81 mg PO DAILY 05/17/19 Atorvastatin Calcium [Lipitor 40 mg Tablet] 40 mg PO QHS 05/17/19 Clopidogrel Bisulfate [Plavix 75 mg Tablet] 75 mg PO DAILY 05/17/19 Fluticasone/Vilanterol [Breo 100-25 Mcg Ellipta 14 Dose/Dpi] 1 inh IH DAILY 05/17/19 Furosemide [Lasix 20 mg Tablet] 20 mg PO DAILY 05/17/19 Gabapentin [Neurontin 100 mg Capsule] 100 mg PO DAILY 05/17/19 Ipratropium/Albuterol Sulfate [Duoneb 3 ml Ampul] 3 ml NEB [id number] PRN 05/17/19 Levothyroxine Sodium [Synthroid 50 Mcg Tablet] 50 mcg PO DAILY 05/17/19 Metformin HCl [Glucophage 500 mg Tablet] 500 mg PO BIDBS 05/17/19 Metoprolol Tartrate [Lopressor 25 mg Tablet] 25 mg PO Q12 05/17/19 Nifedipine [Procardia Xl 30 mg Tablet] 30 mg PO DAILY 05/17/19 Omeprazole 40 mg PO BIDBS 05/17/19 Temazepam [Restoril 15 mg Capsule] 30 mg PO QHS 05/17/19 Tiotropium Lawrence [Spiriva Respimat] 2 puff IH DAILY 05/17/19 Allergies/Adverse Reactions: No Known Allergies Allergy (Verified 03/21/18 14:03) Physical Exam Vital Signs: Temp Pulse Resp BP Pulse Ox 97.5 F 70 19 124/75 93 05/17/19 12:24 05/17/19 12:25 05/17/19 16:01 05/17/19 16:01 05/17/19 16:01 Intake & Output 05/16/19 05/17/19 05/18/19 06:59 06:59 06:59 Intake Total 500 Balance 500 Weight 56 kg Results Laboratory Results: 05/17/19 12:05 05/17/19 12:05 05/17/19 05/17/19 05/17/19 12:05 12:05 13:30 WBC 8.9 RBC 3.73 Hgb 11.5 L Hct 33.3 L MCV 89 MCH 30.8 MCHC 34.5 RDW 17.0 H Plt Count 292 Seg Neutrophils % 86.0 H Lymphocytes % 8.5 L Monocytes % 4.6 Eosinophils % 0.5 Basophils % 0.4 Absolute Neutrophils 7.7 Absolute Lymphocytes 0.8 Absolute Monocytes 0.4 Absolute Eosinophils 0.0 Absolute Basophils 0.0 Carbonic Acid Cancelled HCO3/H2CO3 Ratio Cancelled ABG pH Cancelled ABG pCO2 Cancelled ABG pO2 Cancelled ABG HCO3 Cancelled ABG O2 Saturation Cancelled ABG Base Excess Cancelled FiO2 Cancelled Sodium 130.0 L Potassium 4.3 Chloride 87 L Carbon Dioxide 21 L Anion Gap 22 H BUN 19 Creatinine 1.61 H Est GFR ( Amer) 38 L Est GFR (Non-Af Amer) 31 L Glucose 108 Calcium 7.2 L Total Bilirubin 1.0 AST 42 H ALT 14 Alkaline Phosphatase 82 Total Protein 8.4 H Albumin 4.5 05/17/19 14:20 WBC RBC Hgb Hct MCV MCH MCHC RDW Plt Count Seg Neutrophils % Lymphocytes % Monocytes % Eosinophils % Basophils % Absolute Neutrophils Absolute Lymphocytes Absolute Monocytes Absolute Eosinophils Absolute Basophils Carbonic Acid 0.81 L HCO3/H2CO3 Ratio 23:1 ABG pH 7.47 H ABG pCO2 26.9 L ABG pO2 96.3 ABG HCO3 18.9 L ABG O2 Saturation 97.8 ABG Base Excess -3.7 FiO2 35% Sodium Potassium Chloride Carbon Dioxide Anion Gap BUN Creatinine Est GFR ( Amer) Est GFR (Non-Af Amer) Glucose Calcium Total Bilirubin AST ALT Alkaline Phosphatase Total Protein Albumin 05/17/19 05/17/19 05/17/19 12:05 12:05 12:05 Creatine Kinase 184 H CK-MB (CK-2) 1.28 Troponin I 0.036 NT-Pro-B Natriuret Pep 85586 H Impressions: Chest X-Ray 05/17/19 12:21 IMPRESSION: Mild bibasilar predominant pulmonary fibrosis as seen on prior CT examination without acute abnormality of the lungs. Assessment and Plan - Diagnosis (1) Acute exacerbation of CHF (congestive heart failure) Qualifiers: Heart failure type: systolic Qualified Code(s): I50.23 - Acute on chronic systolic (congestive) heart failure Is this a current diagnosis for this admission?: Yes Plan: Acute systolic heart failure likely due to excessive fluid intake. She reports compliance with her medication however reports excessive fluid intake. pH 7.47, PCO2 26.9, PO2 96.3, FiO2 35% WBC 8.9, hemoglobin 11.5, platelets 292 Sodium 130, potassium 4.3, bicarb 21, BUN 19, creatinine 1.61 Troponin 0.036, proBNP 12,900. Pending EKG. Mild elevated troponin. Admit to telemetry, cardiac diet, fluid restriction, strict in and out, IV diuretics, beta-blockers, daily weights, 2D echo, trend troponins, follow-up EKG. (2) Acute respiratory failure with hypoxia Is this a current diagnosis for this admission?: Yes Plan: Likely combination of acute CHF exacerbation and COPD exacerbation. DuoNeb's, supplemental oxygen, BiPAP, flutter valve, pulmonary toileting, incentive spirometry, IV steroids, LABA's/LAMA's. Continue treating underlying acute CHF exacerbation. pH 7.47, PCO2 26.9, PO2 96.3, FiO2 35% WBC 8.9, hemoglobin 11.5, platelets 292 Sodium 130, potassium 4.3, bicarb 21, BUN 19, creatinine 1.61 Troponin 0.036, proBNP 12,900. (3) Hyponatremia Is this a current diagnosis for this admission?: Yes Plan: Likely a combination of SIADH due to underlying lung cancer and delusional hyponatremia due to CHF exacerbation. As per #1. Monitor for seizures. (4) COPD with exacerbation Is this a current diagnosis for this admission?: Yes Plan: As per #2 (5) ALTON (acute kidney injury) Is this a current diagnosis for this admission?: Yes Plan: Prerenal likely due to intravascular volume depletion due to CHF exacerbation. Baseline creatinine less than 1. Cautious diuresis guided by volume status, avoid nephrotoxic meds. If no improvement will consult nephrology. (6) CAD (coronary artery disease) Is this a current diagnosis for this admission?: Yes Plan: Status post PCI x2 stent placement. Denies any active anginal symptoms. Continue DAPT, beta-blockers, statins. Follow-up 2D echo. Patient may benefit from KIM/ARB if kidney function improves. (7) Hypertension Is this a current diagnosis for this admission?: Yes Plan: Normotensive. Continue beta-blockers, diuretics. Monitor volume status. Adjust meds as needed. (8) Small bowel arteriovenous malformation Is this a current diagnosis for this admission?: Yes Plan: History of small bowel AVM as per enteroscopy resolved. History of iron deficiency anemia, requiring iron transfusions in the past. Monitor H&H, supportive transfusions, restart home meds. (9) Diabetes type 2, controlled Is this a current diagnosis for this admission?: Yes Plan: Takes metformin as outpatient. Reports good control. Diabetic diet, pre-meal insulin, sliding scale insulin, long-acting insulin, Accu-Chek, hypoglycemia protocol. Adjust dosage as needed. Restart home meds upon discharge. Outpatient PCP follow-up. (10) Former smoker Is this a current diagnosis for this admission?: Yes Plan: Nicotine patch will be made available if patient desires. Counseled on abstaining from tobacco. (11) Lung cancer Is this a current diagnosis for this admission?: Yes Plan: Patient reports history of recently diagnosed questionable lung cancer. As per patient she had a lymph node biopsy which was positive but as per radiologist it was insufficient sample. Patient follows up with Dr. Marquez as an outpatient and repeat CT is planned in July. Outpatient oncology follow-up. (12) Hyperlipidemia Is this a current diagnosis for this admission?: Yes Plan: Continue statins. LFTs WNL. Diet and lifestyle modification recommended. Outpatient PCP follow-up. (13) Hypothyroidism Is this a current diagnosis for this admission?: Yes Plan: Restart home meds. We will obtain TSH. (14) Iron deficiency anemia Qualifiers: Iron deficiency anemia type: chronic blood loss Qualified Code(s): D50.0 - Iron deficiency anemia secondary to blood loss (chronic) Is this a current diagnosis for this admission?: Yes Plan: As per #7. Monitor H&H. Continue ferrous sulfate. Supportive transfusions. (15) GERD (gastroesophageal reflux disease) Is this a current diagnosis for this admission?: Yes Plan: Restart home meds.
[2019-05-17] MEDS ORDERED: METOPROLOL TARTRATE 25 MG TABLET PO SCH (17:30)
[2019-05-17] MEDS: FUROSEMIDE INJ/PF 20 MG/2 ML SDV IV SCH (17:42)
[2019-05-17] MEDS ORDERED: LORAZEPAM INJ 2 MG/1 ML VIAL IV ONE (18:30)
--- NOTE | 2019-05-17 19:04 | EKG REPORT ---
SEVERITY:- ABNORMAL ECG - SINUS RHYTHM DIFFUSE NONSPECIFIC ST-T INVERSIONS, ANTEROLATERAL LEADS.. : Confirmed by: Samuel Rodgers MD 17-May-2019 19:03:54
[2019-05-17] MEDS: IPRATROPIUM/ALBUTEROL 0.5-2.5 MG/3 ML AMPUL NEB SCH (20:24)
[2019-05-17] MEDS ORDERED: IPRATROPIUM/ALBUTEROL 0.5-2.5 MG/3 ML AMPUL NEB ONE (21:02)
[2019-05-17] MEDS: METOPROLOL TARTRATE 25 MG TABLET PO SCH (21:31)
[2019-05-17] MEDS: FAMOTIDINE 20 MG TABLET PO SCH (21:32)
[2019-05-17] MEDS: TEMAZEPAM 15 MG CAPSULE PO SCH (21:33)
[2019-05-17] MEDS: ATORVASTATIN CALCIUM 40 MG TABLET PO SCH (21:33)
[2019-05-17] MEDS: METHYLPREDNISOLONE INJ 125 MG/2 ML SDV IV SCH (21:34)
[2019-05-17 21:49] LABS: ARTERIAL BLOOD BASE EXCESS -4.4 mmol/L; ARTERIAL BLOOD H2CO3 0.77 mmol/L (1.05-1.35); ARTERIAL BLOOD HCO3 17.9 mmol/L (20-24); ARTERIAL BLOOD O2 SATURATION 94.3 % (94-98); ARTERIAL BLOOD PCO2 25.5 mmHg (35-45); ARTERIAL BLOOD PH 7.46 (7.35-7.45); ARTERIAL BLOOD PO2 65.4 mmHg (80-100); ARTERIAL BLOOD TOTAL CO2 18.6 mmol/L (21-25)
[2019-05-17 21:50] LABS: ARTERIAL BLOOD FIO2 ROOM AIR
[2019-05-17 22:49] LABS: CREATINE KINASE MB 1.08 ng/mL (<4.55); TROPONIN I 0.03 ng/mL
--- NOTE | 2019-05-18 00:39 | RADIOLOGY REPORT (SQ) ---
VENTILATION/PERFUSION SCAN HISTORY: Shortness of breath. TECHNIQUE: The patient received 30.5 mCi of Tc-99m DTPA aerosol via inhalation and 5.41 mCi of technetium-99m MAA intravenously. Multiple ventilation and perfusion views of the chest were obtained. FINDINGS: The perfusion images show homogeneous distribution of the radiotracer in both lungs. The ventilation images shows heterogeneous radiotracer accumulation, consistent with fibrotic lung disease seen on prior CT scan. No mismatched ventilation/perfusion defects are identified. IMPRESSION: No evidence of pulmonary embolism.
[2019-05-18] MEDS: IPRATROPIUM/ALBUTEROL 0.5-2.5 MG/3 ML AMPUL NEB SCH ×3 (01:49→14:02)
[2019-05-18 03:50] LABS: ABSOLUTE LYMPHOCYTES (AUTO) 0.2 10^3/uL (0.5-4.7); ABSOLUTE NEUT (AUTO) 2.2 10^3/uL (1.7-8.2); BASOPHILS % (AUTO) 0.1 % (0-2); HEMATOCRIT 27.2 % (36.0-47.0); LYMPHOCYTES % (AUTO) 6.5 % (13-45); MEAN CORPUSCULAR HEMOGLOBIN 30.5 pg (27.0-33.4); MEAN CORPUSCULAR HGB CONC 34.4 g/dL (32.0-36.0); MEAN CORPUSCULAR VOLUME 89 fl (80-97); PLATELET COUNT 212 10^3/uL (150-450); RED BLOOD COUNT 3.06 10^6/uL (3.72-5.28); RED CELL DISTRIBUTION WIDTH 16.8 % (11.5-14.0); SEGMENTED NEUTROPHILS % (AUTO) 91.4 % (42-78); TOTAL CELLS COUNTED % (AUTO) 100 %
[2019-05-18 03:53] LABS: WHITE BLOOD COUNT 2.4 10^3/uL (4.0-10.5)
[2019-05-18 03:54] LABS: HEMOGLOBIN 9.4 g/dL (12.0-15.5)
[2019-05-18 03:56] LABS: ANION GAP 19 (5-19); BLOOD UREA NITROGEN 21 mg/dL (7-20); CARBON DIOXIDE 19 mmol/L (22-30); CHLORIDE 93 mmol/L (98-107); GLUCOSE 215 mg/dL (75-110)
[2019-05-18 04:07] LABS: CREATINE KINASE MB 1.42 ng/mL (<4.55); TROPONIN I 0.015 ng/mL
[2019-05-18 04:21] LABS: CALCIUM 6.4 mg/dL (8.4-10.2); POTASSIUM 2.8 mmol/L (3.6-5.0)
[2019-05-18 05:08] LABS: BLOOD UREA NITROGEN 21 mg/dL (7-20); CARBON DIOXIDE 19 mmol/L (22-30); CHLORIDE 93 mmol/L (98-107); GLUCOSE 212 mg/dL (75-110)
[2019-05-18 05:13] LABS: ANION GAP 18 (5-19)
[2019-05-18 05:45] LABS: CALCIUM 6.4 mg/dL (8.4-10.2); POTASSIUM 2.7 mmol/L (3.6-5.0)
[2019-05-18] MEDS: FUROSEMIDE INJ/PF 20 MG/2 ML SDV IV SCH ×2 (06:07→17:15)
[2019-05-18] MEDS: LEVOTHYROXINE SODIUM 0.05 MG TABLET PO SCH (06:11)
[2019-05-18] MEDS: METHYLPREDNISOLONE INJ 125 MG/2 ML SDV IV SCH ×2 (06:11→15:30)
[2019-05-18] MEDS ORDERED: MAGNESIUM SULFATE 4 GM/100 ML RTUPB IV ONE (06:30)
[2019-05-18] MEDS: POTASSI CL 20 MEQ/50 ML RIDER 20 MEQ/50 ML RTUPB IV SCH ×2 (06:47→08:08)
[2019-05-18] MEDS ORDERED: CALCIUM GLUCONATE 2,222 MG in DEXTROSE 5%-WATER 100 ML IV ONE ×2 (07:00→09:00)
--- NOTE | 2019-05-18 07:42 | PDOC CONSULTATION ---
Consultation Consult Date: 05/18/19 Provider Consulted: RHINA TAN Consult reason:: Patient with mediastinal lymphadenopathy and suspicion for cancer. History of Present Illness Admission Date/PCP: 05/17/19 14:30 MIGUEL ANGEL MARQUEZ MD History of Present Illness: JAVED WAY is a 73 year old female who is followed by Dr. Marquez for iron deficiency anemia. Although she has also been followed for a suspicious lung nodule, all biopsies (2015 and 2018) have been negative for any malignancy. Most recent PET/CT on 03/09/2019 only showed mediastinal lymphadenopathy. FNA with Flow cytometry performed on these areas was negative for lymphoma or other cancer. SHe presented to the ED yesterday with complaints of feeling short of breath. However, today, she tells me that she has been gradually feeling worse over the last week. Increased nausea, lightheadedness with some confusion and decreased appetite. She was found to have very low potassium as well as UTI. This morning, she states that she is very hungry and is starting to feel a little better. Nurses report that they have been giving IV elecrolytes all night. Currently, her IV site is burning. Past Medical History Cardiac Medical History: Reports: Coronary Artery Disease, Hyperlipidema, Hypertension Denies: Myocardial Infarction Pulmonary Medical History: Reports: Asthma, Chronic Obstructive Pulmonary Disease (COPD), Pneumonia Denies: Bronchitis Neurological Medical History: Denies: Seizures Endocrine Medical History: Reports: Diabetes Mellitus Type 2 GI Medical History: Reports: Gastroesophageal Reflux Disease Musculoskeltal Medical History: Denies: Arthritis Psychiatric Medical History: Reports: Depression Hematology: Reports: Anemia Past Surgical History Past Surgical History: Reports: Cardiac Catheterization - 2 stents, Cholecystectomy, Coronary Stent - x1 November 2014, Other - colonoscopy with EGD 2015, ovarian cyst removal, bronchoscopies Social History Information Source: Patient Lives with: Family Smoking Status: Former Smoker Last Time Smoked: 25 years ago. Frequency of Alcohol Use: None Hx Recreational Drug Use: No Drugs: None Hx Prescription Drug Abuse: No Past Social History Note: She is and lives with family. Family History Family History: Reviewed & Not Pertinent Parental Family History Reviewed: Yes - Father age 75. Children Family History Reviewed: No Sibling(s) Family History Reviewed.: Yes - Brother and uncle with throat cancer Medication/Allergy Home Medications: Aspirin [Ecotrin 81 mg EC Tablet] 81 mg PO DAILY 05/17/19 Atorvastatin Calcium [Lipitor 40 mg Tablet] 40 mg PO QHS 05/17/19 Clopidogrel Bisulfate [Plavix 75 mg Tablet] 75 mg PO DAILY 05/17/19 Fluticasone/Vilanterol [Breo 100-25 Mcg Ellipta 14 Dose/Dpi] 1 inh IH DAILY 05/17/19 Furosemide [Lasix 20 mg Tablet] 20 mg PO DAILY 05/17/19 Gabapentin [Neurontin 100 mg Capsule] 100 mg PO DAILY 05/17/19 Ipratropium/Albuterol Sulfate [Duoneb 3 ml Ampul] 3 ml NEB [id number] PRN 05/17/19 Levothyroxine Sodium [Synthroid 50 Mcg Tablet] 50 mcg PO DAILY 05/17/19 Metformin HCl [Glucophage 500 mg Tablet] 500 mg PO BIDBS 05/17/19 Metoprolol Tartrate [Lopressor 25 mg Tablet] 25 mg PO Q12 05/17/19 Nifedipine [Procardia Xl 30 mg Tablet] 30 mg PO DAILY 05/17/19 Omeprazole 40 mg PO BIDBS 05/17/19 Temazepam [Restoril 15 mg Capsule] 30 mg PO QHS 05/17/19 Tiotropium [place] [Spiriva Respimat] 2 puff IH DAILY 05/17/19 Allergies/Adverse Reactions: No Known Allergies Allergy (Verified 03/21/18 14:03) Review of Systems Constitutional: PRESENT: weakness. ABSENT: fever(s), headache(s) Eyes: ABSENT: visual disturbances Ears: ABSENT: hearing changes Nose, Mouth, and Throat: ABSENT: sore throat Cardiovascular: PRESENT: dyspnea on exertion. ABSENT: chest pain Respiratory: PRESENT: dyspnea Gastrointestinal: PRESENT: nausea Genitourinary: ABSENT: dysuria Integumentary: ABSENT: rash Neurological: PRESENT: weakness, other - light headedness Hematologic/Lymphatic: ABSENT: lymphadenopathy Physical Exam Vital Signs: Temp Pulse Resp BP Pulse Ox 97.4 F 75 20 103/55 L 95 05/18/19 03:35 05/18/19 03:35 05/18/19 03:35 05/18/19 03:35 05/18/19 04:20 Intake & Output 05/17/19 05/18/19 05/19/19 06:59 06:59 06:59 Intake Total 500 Balance 500 Weight 53.8 kg General appearance: PRESENT: no acute distress, thin, well-developed Head exam: PRESENT: normocephalic Eye exam: PRESENT: EOMI, PERRLA Mouth exam: PRESENT: tongue midline Neck exam: ABSENT: lymphadenopathy, tenderness Respiratory exam: PRESENT: clear to auscultation rob, unlabored Cardiovascular exam: PRESENT: RRR GI/Abdominal exam: PRESENT: soft. ABSENT: tenderness Extremities exam: ABSENT: pedal edema Musculoskeletal exam: PRESENT: normal inspection Neurological exam: PRESENT: alert, awake Psychiatric exam: PRESENT: appropriate affect Skin exam: PRESENT: normal color Results Laboratory Results: 05/18/19 03:22 05/18/19 04:37 05/17/19 05/17/19 05/17/19 12:05 12:05 12:05 WBC 8.9 RBC 3.73 Hgb 11.5 L Hct 33.3 L MCV 89 MCH 30.8 MCHC 34.5 RDW 17.0 H Plt Count 292 Seg Neutrophils % 86.0 H Lymphocytes % 8.5 L Monocytes % 4.6 Eosinophils % 0.5 Basophils % 0.4 Absolute Neutrophils 7.7 Absolute Lymphocytes 0.8 Absolute Monocytes 0.4 Absolute Eosinophils 0.0 Absolute Basophils 0.0 Carbonic Acid HCO3/H2CO3 Ratio ABG pH ABG pCO2 ABG pO2 ABG HCO3 ABG O2 Saturation ABG Base Excess FiO2 Sodium 130.0 L Potassium 4.3 Chloride 87 L Carbon Dioxide 21 L Anion Gap 22 H BUN 19 Creatinine 1.61 H Est GFR ( Amer) 38 L Est GFR (Non-Af Amer) 31 L Glucose 108 Calcium 7.2 L Magnesium Total Bilirubin 1.0 AST 42 H ALT 14 Alkaline Phosphatase 82 Total Protein 8.4 H Albumin 4.5 TSH 2.60 05/17/19 05/17/19 05/17/19 13:30 14:20 21:30 WBC RBC Hgb Hct MCV MCH MCHC RDW Plt Count Seg Neutrophils % Lymphocytes % Monocytes % Eosinophils % Basophils % Absolute Neutrophils Absolute Lymphocytes Absolute Monocytes Absolute Eosinophils Absolute Basophils Carbonic Acid Cancelled 0.81 L 0.77 L HCO3/H2CO3 Ratio Cancelled 23:1 23:1 ABG pH Cancelled 7.47 H 7.46 H ABG pCO2 Cancelled 26.9 L 25.5 L ABG pO2 Cancelled 96.3 65.4 L ABG HCO3 Cancelled 18.9 L 17.9 L ABG O2 Saturation Cancelled 97.8 94.3 ABG Base Excess Cancelled -3.7 -4.4 FiO2 Cancelled 35% ROOM AIR Sodium Potassium Chloride Carbon Dioxide Anion Gap BUN Creatinine Est GFR ( Amer) Est GFR (Non-Af Amer) Glucose Calcium Magnesium Total Bilirubin AST ALT Alkaline Phosphatase Total Protein Albumin [facility] 05/18/19 05/18/19 05/18/19 03:22 03:22 04:37 WBC 2.4 L D RBC 3.06 L Hgb 9.4 L D Hct 27.2 L MCV 89 MCH 30.5 MCHC 34.4 RDW 16.8 H Plt Count 212 Seg Neutrophils % 91.4 H Lymphocytes % 6.5 L Monocytes % 2.0 L Eosinophils % 0.0 Basophils % 0.1 Absolute Neutrophils 2.2 Absolute Lymphocytes 0.2 L Absolute Monocytes 0.0 L Absolute Eosinophils 0.0 Absolute Basophils 0.0 Carbonic Acid HCO3/H2CO3 Ratio ABG pH ABG pCO2 ABG pO2 ABG HCO3 ABG O2 Saturation ABG Base Excess FiO2 Sodium 131.1 L 130.2 L Potassium 2.8 L* D 2.7 L* Chloride 93 L 93 L Carbon Dioxide 19 L 19 L Anion Gap 19 18 BUN 21 H 21 H Creatinine 1.20 1.18 Est GFR ( Amer) 53 L 54 L Est GFR (Non-Af Amer) 44 L 45 L Glucose 215 H 212 H Calcium 6.4 L* 6.4 L* Magnesium 0.7 L* 0.7 L* Total Bilirubin AST ALT Alkaline Phosphatase Total Protein Albumin [facility] 05/17/19 05/17/19 05/17/19 12:05 12:05 12:05 Creatine Kinase 184 H CK-MB (CK-2) 1.28 Troponin I 0.036 NT-Pro-B Natriuret Pep [id number] H 05/17/19 05/17/19 05/18/19 21:30 21:30 03:22 Creatine Kinase 161 H 183 H CK-MB (CK-2) 1.08 Troponin I 0.030 NT-Pro-B Natriuret Pep 05/18/19 03:22 Creatine Kinase CK-MB (CK-2) 1.42 Troponin I 0.015 NT-Pro-B Natriuret Pep Impressions: Lung Scan-VQ NM 05/17/19 00:00 IMPRESSION: No evidence of pulmonary embolism. Chest X-Ray 05/17/19 12:21 IMPRESSION: Mild bibasilar predominant pulmonary fibrosis as seen on prior CT examination without acute abnormality of the lungs. Status: Image reviewed by me Assessment & Plan - Diagnosis (1) Hypokalemia Is this a current diagnosis for this admission?: Yes Plan: replace. Unclear as to cause. Watch for evidence of diarrhea. She has been on Lasix. Unclear if she has been taking her medications appropriately at home. (2) Hypomagnesemia Is this a current diagnosis for this admission?: Yes Plan: Replace. (3) Hyponatremia Is this a current diagnosis for this admission?: Yes Plan: Free water restriction. Need to gradually correct. No evidence of lung cancer on biopsies 03/17/2019. Unclear as to cause. She may still have some occult malignancy. - Plan Summary Plan Summary: Await urinalysis results. Thank you for consult. I will continue to follow with you. Not sure her CBCs have been accurate. I will re-draw CBC today to confirm levels.
[2019-05-18] MEDS ORDERED: MAGNESIUM SULFATE/D5W 1 GM/100 ML RTUPB IV ONE (08:31)
[2019-05-18] MEDS ORDERED: POTASSI CL 20 MEQ/50 ML RIDER 20 MEQ/50 ML RTUPB IV ONE (08:31)
--- NOTE | 2019-05-18 09:02 | EKG REPORT ---
SEVERITY:- ABNORMAL ECG - SINUS RHYTHM BORDERLINE LEFT AXIS DEVIATION ABNORMAL T, CONSIDER ISCHEMIA, DIFFUSE LEADS THESE ARE NEW CHANGES SINCE 02/26/16 EKG. BORDERLINE PROLONGED QT INTERVAL : Confirmed by: Samuel Rodgers MD 18-May-2019 09:02:13
[2019-05-18] MEDS ORDERED: POTASSIUM CHLORIDE 10 MEQ CAPSULE.ER PO ONE ×3 (09:37→19:54)
[2019-05-18] MEDS ORDERED: GLUCAGON,HUMAN RECOMB 1 MG INJ IM PRN (09:42)
[2019-05-18] MEDS ORDERED: DEXTROSE 50%-WATER 25 GM/50 ML DISP.SYRIN IV PRN ×2 (09:42)
[2019-05-18] MEDS ORDERED: DEXTROSE 40% GEL 15 GM TUBE PO PRN ×2 (09:42)
[2019-05-18 09:59] LABS: HEMATOCRIT 26.4 % (36.0-47.0); MEAN CORPUSCULAR HEMOGLOBIN 30.5 pg (27.0-33.4); MEAN CORPUSCULAR HGB CONC 34.3 g/dL (32.0-36.0); MEAN CORPUSCULAR VOLUME 89 fl (80-97); PLATELET COUNT 213 10^3/uL (150-450); RED BLOOD COUNT 2.96 10^6/uL (3.72-5.28); RED CELL DISTRIBUTION WIDTH 16.9 % (11.5-14.0); WHITE BLOOD COUNT 3.9 10^3/uL (4.0-10.5)
[2019-05-18] MEDS ORDERED: (PENDING PHARMACY ID) (Tiotropium Bromide [Spiriva Respimat] 2 PUFF) IH SCH (10:00)
[2019-05-18] MEDS: BUSPIRONE HCL 10 MG TABLET PO SCH ×2 (10:19→20:59)
[2019-05-18] MEDS: METOPROLOL TARTRATE 25 MG TABLET PO SCH ×2 (10:20→20:59)
[2019-05-18] MEDS: SERTRALINE HCL 50 MG TABLET PO SCH (10:21)
[2019-05-18] MEDS: CLOPIDOGREL BISULFATE 75 MG TABLET PO SCH (10:21)
[2019-05-18] MEDS: GABAPENTIN 100 MG CAPSULE PO SCH (10:21)
[2019-05-18] MEDS: FAMOTIDINE 20 MG TABLET PO SCH ×2 (10:21→20:59)
[2019-05-18] MEDS: ASPIRIN 81 MG TABLET, ENT COATED PO SCH (10:21)
[2019-05-18 10:30] LABS: CREATINE KINASE MB 1.68 ng/mL (<4.55); TROPONIN I 0.02 ng/mL
--- NOTE | 2019-05-18 11:39 | PDOC PROGRESS REPORT ---
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 Denies any recent hospitalization, denies any recent travel, reports medication adherence, denies any smoking, denies any recent upper/lower respiratory infections. Patient endorses drinking about 8 bottles of 500 cc of water every 24 hours on top of daily coffee intake. Worsening dyspnea on exertion, reporting home SPO2 of 50s with minimal exertion. Denies any fever, chest pain, vomiting, abdominal pain, diarrhea, constipation, any urinary symptoms. In ED she was found to be hypoxic, with low sodium and elevated creatinine and elevated BNP. Patient was started on BiPAP with IV steroids and hospital was consulted for admission. 05/18/2019. No acute events overnight. Patient was found to have multiple laboratory abnormalities in the morning labs, was started on electrolyte protocol. Patient is stating that she is feeling generalized weakness otherwise no shortness of breath has improved. Patient is also complaining of being very anxious because she is in the hospital and the fact that she has been diagnosed with cancer recently. Denies any fever, chills, nausea, vomiting, diarrhea, constipation or any urinary symptoms. Reason For Visit: ACUTE CHF EXACERBATION, COPD EXACERBATION Physical Exam Vital Signs: Temp Pulse Resp BP Pulse Ox 97.2 F 70 21 H 115/72 96 05/18/19 08:26 05/18/19 08:35 05/18/19 08:35 05/18/19 08:26 05/18/19 08:35 Intake & Output 05/17/19 05/18/19 05/19/19 06:59 06:59 06:59 Intake Total 500 34 Balance 500 34 Weight 53.8 kg General appearance: PRESENT: no acute distress, well-developed, well-nourished Head exam: PRESENT: atraumatic, normocephalic Eye exam: PRESENT: conjunctiva pink, EOMI, PERRLA. ABSENT: scleral icterus Ear exam: PRESENT: normal external ear exam Mouth exam: PRESENT: moist, tongue midline Neck exam: ABSENT: carotid bruit, JVD, lymphadenopathy, thyromegaly Respiratory exam: PRESENT: crackles. ABSENT: rales, rhonchi, wheezes Cardiovascular exam: PRESENT: RRR. ABSENT: diastolic murmur, rubs, systolic murmur Pulses: PRESENT: normal dorsalis pedis pul Vascular exam: PRESENT: normal capillary refill GI/Abdominal exam: PRESENT: normal bowel sounds, soft. ABSENT: distended, guarding, mass, organolmegaly, rebound, tenderness Rectal exam: PRESENT: deferred Extremities exam: PRESENT: full ROM. ABSENT: calf tenderness, clubbing, pedal edema Neurological exam: PRESENT: alert, awake, oriented to person, oriented to place, oriented to time, oriented to situation, CN II-XII grossly intact. ABSENT: motor sensory deficit Psychiatric exam: PRESENT: anxious, appropriate affect, normal mood. ABSENT: homicidal ideation, suicidal ideation Skin exam: PRESENT: dry, intact, warm. ABSENT: cyanosis, rash Results Laboratory Results: 05/18/19 09:39 05/18/19 04:37 05/17/19 05/17/19 05/17/19 12:05 12:05 12:05 WBC 8.9 RBC 3.73 Hgb 11.5 L Hct 33.3 L MCV 89 MCH 30.8 MCHC 34.5 RDW 17.0 H Plt Count 292 Seg Neutrophils % 86.0 H Lymphocytes % 8.5 L Monocytes % 4.6 Eosinophils % 0.5 Basophils % 0.4 Absolute Neutrophils 7.7 Absolute Lymphocytes 0.8 Absolute Monocytes 0.4 Absolute Eosinophils 0.0 Absolute Basophils 0.0 Carbonic Acid HCO3/H2CO3 Ratio ABG pH ABG pCO2 ABG pO2 ABG HCO3 ABG O2 Saturation ABG Base Excess FiO2 Sodium 130.0 L Potassium 4.3 Chloride 87 L Carbon Dioxide 21 L Anion Gap 22 H BUN 19 Creatinine 1.61 H Est GFR ( Amer) 38 L Est GFR (Non-Af Amer) 31 L Glucose 108 Calcium 7.2 L Magnesium Total Bilirubin 1.0 AST 42 H ALT 14 Alkaline Phosphatase 82 Total Protein 8.4 H Albumin 4.5 TSH 2.60 PTH Intact 05/17/19 05/17/19 05/17/19 13:30 14:20 21:30 WBC RBC Hgb Hct MCV MCH MCHC RDW Plt Count Seg Neutrophils % Lymphocytes % Monocytes % Eosinophils % Basophils % Absolute Neutrophils Absolute Lymphocytes Absolute Monocytes Absolute Eosinophils Absolute Basophils Carbonic Acid Cancelled 0.81 L 0.77 L HCO3/H2CO3 Ratio Cancelled 23:1 23:1 ABG pH Cancelled 7.47 H 7.46 H ABG pCO2 Cancelled 26.9 L 25.5 L ABG pO2 Cancelled 96.3 65.4 L ABG HCO3 Cancelled 18.9 L 17.9 L ABG O2 Saturation Cancelled 97.8 94.3 ABG Base Excess Cancelled -3.7 -4.4 FiO2 Cancelled 35% ROOM AIR Sodium Potassium Chloride Carbon Dioxide Anion Gap BUN Creatinine Est GFR ( Amer) Est GFR (Non-Af Amer) Glucose Calcium Magnesium Total Bilirubin AST ALT Alkaline Phosphatase Total Protein Albumin TSH PTH Intact 05/18/19 05/18/19 05/18/19 03:22 03:22 04:37 WBC 2.4 L D RBC 3.06 L Hgb 9.4 L D Hct 27.2 L MCV 89 MCH 30.5 MCHC 34.4 RDW 16.8 H Plt Count 212 Seg Neutrophils % 91.4 H Lymphocytes % 6.5 L Monocytes % 2.0 L Eosinophils % 0.0 Basophils % 0.1 Absolute Neutrophils 2.2 Absolute Lymphocytes 0.2 L Absolute Monocytes 0.0 L Absolute Eosinophils 0.0 Absolute Basophils 0.0 Carbonic Acid HCO3/H2CO3 Ratio ABG pH ABG pCO2 ABG pO2 ABG HCO3 ABG O2 Saturation ABG Base Excess FiO2 Sodium 131.1 L 130.2 L Potassium 2.8 L* D 2.7 L* Chloride 93 L 93 L Carbon Dioxide 19 L 19 L Anion Gap 19 18 BUN 21 H 21 H Creatinine 1.20 1.18 Est GFR ( Amer) 53 L 54 L Est GFR (Non-Af Amer) 44 L 45 L Glucose 215 H 212 H Calcium 6.4 L* 6.4 L* Magnesium 0.7 L* 0.7 L* Total Bilirubin AST ALT Alkaline Phosphatase Total Protein Albumin TSH PTH Intact 05/18/19 05/18/19 09:39 09:48 WBC 3.9 L RBC 2.96 L Hgb 9.0 L Hct 26.4 L MCV 89 MCH 30.5 MCHC 34.3 RDW 16.9 H Plt Count 213 Seg Neutrophils % Lymphocytes % Monocytes % Eosinophils % Basophils % Absolute Neutrophils Absolute Lymphocytes Absolute Monocytes Absolute Eosinophils Absolute Basophils Carbonic Acid HCO3/H2CO3 Ratio ABG pH ABG pCO2 ABG pO2 ABG HCO3 ABG O2 Saturation ABG Base Excess FiO2 Sodium Potassium Chloride Carbon Dioxide Anion Gap BUN Creatinine Est GFR ( Amer) Est GFR (Non-Af Amer) Glucose Calcium Magnesium Total Bilirubin AST ALT Alkaline Phosphatase Total Protein Albumin TSH PTH Intact 45.7 05/17/19 05/17/19 05/17/19 12:05 12:05 12:05 Creatine Kinase 184 H CK-MB (CK-2) 1.28 Troponin I 0.036 NT-Pro-B Natriuret Pep [id number] H 05/17/19 05/17/19 05/18/19 21:30 21:30 03:22 Creatine Kinase 161 H 183 H CK-MB (CK-2) 1.08 Troponin I 0.030 NT-Pro-B Natriuret Pep 05/18/19 05/18/19 05/18/19 03:22 09:39 09:39 Creatine Kinase 166 H CK-MB (CK-2) 1.42 1.68 Troponin I 0.015 0.020 NT-Pro-B Natriuret Pep Impressions: Lung Scan-VQ NM 05/17/19 00:00 IMPRESSION: No evidence of pulmonary embolism. Chest X-Ray 05/17/19 12:21 IMPRESSION: Mild bibasilar predominant pulmonary fibrosis as seen on prior CT examination without acute abnormality of the lungs. Assessment and Plan - Diagnosis (1) Acute exacerbation of CHF (congestive heart failure) Qualifiers: Heart failure type: systolic Qualified Code(s): I50.23 - Acute on chronic systolic (congestive) heart failure Is this a current diagnosis for this admission?: Yes Plan: Acute systolic heart failure likely due to excessive fluid intake. She reports compliance with her medication however reports excessive fluid intake. 05/18/2019. ABG: pH 7.46, PCO2 25.5, PO2 65.4, FiO2 21%. 05/17/2019. pH 7.47, PCO2 26.9, PO2 96.3, FiO2 35% WBC 8.9, hemoglobin 11.5, platelets 292 Sodium 130, potassium 4.3, bicarb 21, BUN 19, creatinine 1.61 Troponin 0.036, proBNP 12,900. EKG no acute changes. Mild elevated troponin. 05/19/2019. VQ scan negative for PE. Admit to telemetry, cardiac diet, fluid restriction, strict in and out, IV diuretics, beta-blockers, daily weights, 2D echo, trend troponins, follow-up EKG. (2) Acute respiratory failure with hypoxia Is this a current diagnosis for this admission?: Yes Plan: Likely combination of acute CHF exacerbation and COPD exacerbation. DuoNeb's, supplemental oxygen, BiPAP, flutter valve, pulmonary toileting, incentive spirometry, IV steroids, LABA's/LAMA's. Continue treating underlying acute CHF exacerbation. 05/17/2019. pH 7.47, PCO2 26.9, PO2 96.3, FiO2 35% WBC 8.9, hemoglobin 11.5, platelets 292 Sodium 130, potassium 4.3, bicarb 21, BUN 19, creatinine 1.61 Troponin 0.036, proBNP 12,900. (3) Hyponatremia Is this a current diagnosis for this admission?: Yes Plan: Likely a combination of SIADH due to underlying lung cancer and delusional hyponatremia due to CHF exacerbation. As per #1. Monitor for seizures. (4) COPD with exacerbation Is this a current diagnosis for this admission?: Yes Plan: As per #2 (5) ALTON (acute kidney injury) Is this a current diagnosis for this admission?: Yes Plan: Resolved. Creatinine back to baseline. Prerenal likely due to intravascular volume depletion due to CHF exacerbation. Cautious diuresis guided by volume status, avoid nephrotoxic meds. If no improvement will consult nephrology. (6) CAD (coronary artery disease) Is this a current diagnosis for this admission?: Yes Plan: Status post PCI x2 stent placement. Denies any active anginal symptoms. Continue DAPT, beta-blockers, statins. Follow-up 2D echo. Patient may benefit from KIM/ARB if kidney function improves. (7) Hypertension Is this a current diagnosis for this admission?: Yes Plan: Normotensive. Continue beta-blockers, diuretics. Monitor volume status. Adjust meds as needed. (8) Small bowel arteriovenous malformation Is this a current diagnosis for this admission?: Yes Plan: History of small bowel AVM as per enteroscopy resolved. History of iron deficiency anemia, requiring iron transfusions in the past. Monitor H&H, supportive transfusions, restart home meds. (9) Diabetes type 2, controlled Is this a current diagnosis for this admission?: Yes Plan: Takes metformin as outpatient. Reports good control. Diabetic diet, pre-meal insulin, sliding scale insulin, long-acting insulin, Accu-Chek, hypoglycemia protocol. Adjust dosage as needed. Restart home meds upon discharge. Outpatient PCP follow-up. (10) Former smoker Is this a current diagnosis for this admission?: Yes Plan: Nicotine patch will be made available if patient desires. Counseled on abstaining from tobacco. (11) Lung cancer Is this a current diagnosis for this admission?: Yes Plan: Patient reports history of recently diagnosed questionable lung cancer. As per patient she had a lymph node biopsy which was positive but as per radiologist it was insufficient sample. Patient follows up with Dr. Marquez as an outpatient and repeat CT is planned in July. Oncology following. Recommendations noted. Outpatient oncology follow-up. (12) Hyperlipidemia Is this a current diagnosis for this admission?: Yes Plan: Continue statins. LFTs WNL. Diet and lifestyle modification recommended. Outpatient PCP follow-up. (13) Hypothyroidism Is this a current diagnosis for this admission?: Yes Plan: Restart home meds. TSH WNL. (14) Iron deficiency anemia Qualifiers: Iron deficiency anemia type: chronic blood loss Qualified Code(s): D50.0 - Iron deficiency anemia secondary to blood loss (chronic) Is this a current diagnosis for this admission?: Yes Plan: As per #7. Monitor H&H. Continue ferrous sulfate. Supportive transfusions. (15) GERD (gastroesophageal reflux disease) Is this a current diagnosis for this admission?: Yes Plan: Restart home meds. (16) Anxiety and depression Is this a current diagnosis for this admission?: Yes Plan: Complaining of general anxiety and depression to being diagnosed with possible lung cancer recently. Denies any SI/HI. Start on BuSpar 10 mg p.o. twice daily, Prozac 25 mg p.o. daily. Outpatient PCP follow-up. (17) Hypocalcemia Is this a current diagnosis for this admission?: Yes Plan: Likely due to overdiuresis. PTH vitamin D WNL. Replace as needed. Calcium level tomorrow. (18) Hypokalemia Is this a current diagnosis for this admission?: Yes Plan: Likely due to overdiuresis. No acute EKG changes. Place as needed. Hypokalemia protocol. BMP tomorrow. (19) Hypomagnesemia Is this a current diagnosis for this admission?: Yes Plan: Likely due to overdiuresis. Replace as needed. Magnesium level tomorrow.
[2019-05-18] MEDS: INSULIN LISPRO 100 UNIT/ML 3 ML VIAL SUBCUT SCH ×3 (12:42→21:06)
[2019-05-18] MEDS: FLUTICASONE/VILANTEROL 100-25 MCG/DOSE IH SCH (12:42)
[2019-05-18] MEDS: ENOXAPARIN SODIUM INJ 30 MG/0.3 ML DISP.SYRIN SUBCUT SCH (12:43)
[2019-05-18 16:57] LABS: ANION GAP 17 (5-19); BLOOD UREA NITROGEN 19 mg/dL (7-20); CALCIUM 8.1 mg/dL (8.4-10.2); CARBON DIOXIDE 19 mmol/L (22-30); CHLORIDE 94 mmol/L (98-107); GLUCOSE 160 mg/dL (75-110); POTASSIUM 3.5 mmol/L (3.6-5.0)
[2019-05-18] MEDS: POTASSIUM CHLORIDE 10 MEQ CAPSULE.ER PO SCH (19:56)
[2019-05-18] MEDS: LEVALBUTEROL HCL NEB 1.25 MG/3 ML AMPUL NEB SCH (20:16)
[2019-05-18] MEDS: IPRATROPIUM BROMIDE 0.02% NEB 0.5 MG/2.5 ML AMPUL NEB SCH (20:16)
[2019-05-18] MEDS: TEMAZEPAM 15 MG CAPSULE PO SCH (20:59)
[2019-05-18] MEDS: ATORVASTATIN CALCIUM 40 MG TABLET PO SCH (20:59)
[2019-05-18] MEDS: METHYLPREDNISOLONE INJ 40 MG/1 ML SDV IV SCH (21:04)
[2019-05-18] MEDS ORDERED: METHYLPREDNISOLONE INJ 125 MG/2 ML SDV IV SCH (22:00)
[2019-05-19] MEDS: LEVOTHYROXINE SODIUM 0.05 MG TABLET PO SCH (06:18)
[2019-05-19] MEDS: METHYLPREDNISOLONE INJ 40 MG/1 ML SDV IV SCH ×3 (06:18→21:07)
[2019-05-19] MEDS: FUROSEMIDE INJ/PF 20 MG/2 ML SDV IV SCH ×2 (06:18→19:39)
[2019-05-19 06:23] LABS: HEMATOCRIT 24.6 % (36.0-47.0); HEMOGLOBIN 8.5 g/dL (12.0-15.5); MEAN CORPUSCULAR HEMOGLOBIN 31.1 pg (27.0-33.4); MEAN CORPUSCULAR HGB CONC 34.7 g/dL (32.0-36.0); MEAN CORPUSCULAR VOLUME 90 fl (80-97); PLATELET COUNT 223 10^3/uL (150-450); RED BLOOD COUNT 2.75 10^6/uL (3.72-5.28); RED CELL DISTRIBUTION WIDTH 16.9 % (11.5-14.0)
[2019-05-19 06:36] LABS: BLOOD UREA NITROGEN 19 mg/dL (7-20); CALCIUM 8.1 mg/dL (8.4-10.2); CARBON DIOXIDE 22 mmol/L (22-30); GLUCOSE 139 mg/dL (75-110); POTASSIUM 4.4 mmol/L (3.6-5.0)
[2019-05-19 06:37] LABS: ANION GAP 11 (5-19); CHLORIDE 99 mmol/L (98-107)
[2019-05-19 06:42] LABS: WHITE BLOOD COUNT 9.6 10^3/uL (4.0-10.5)
[2019-05-19 06:56] LABS: ABSOLUTE LYMPHOCYTES# (MANUAL) 0.4 10^3/uL (0.5-4.7); ABSOLUTE MONOCYTES # (MANUAL) 0.3 10^3/uL (0.1-1.4); BASOPHILS % (MANUAL) 0 % (0-2); EOSINOPHILS % (MANUAL) 0 % (0-6); LYMPHOCYTES % (MANUAL) 4 % (13-45); MONOCYTES % (MANUAL) 3 % (3-13); SEGMENTED NEUTROPHILS % (MAN) 93 % (42-78); TOTAL CELLS COUNTED 100
[2019-05-19 06:57] LABS: ANISOCYTOSIS 1+; HYPOCHROMASIA 1+; PLATELET COMMENT ADEQUATE
[2019-05-19 08:33] LABS: ABSOLUTE RETICS # 0.059 10^6/uL (0.028-0.122); RETICULOCYTE COUNT (AUTO) 2.13 % (0.66-2.85)
[2019-05-19 08:34] LABS: IRON(TIBC) 31.6 ug/dL (37-170)
[2019-05-19] MEDS: IPRATROPIUM BROMIDE 0.02% NEB 0.5 MG/2.5 ML AMPUL NEB SCH ×3 (08:36→19:52)
[2019-05-19] MEDS: LEVALBUTEROL HCL NEB 1.25 MG/3 ML AMPUL NEB SCH ×3 (08:36→19:52)
--- NOTE | 2019-05-19 08:45 | PDOC PROGRESS REPORT ---
Subjective Progress Note for:: 05/19/19 Subjective:: Patient states that she was not able to sleep at all last night. The steroids are making her shakey. Nurses report that she is very dyspnic when getting up to the bedside commode. She has no appetite and has not been eating. No BM x 5 days. She is very anxious about the repeat CT planned for Jul. She is worried that there still may be cancer. ROS: no nausea. No chest pain. Otherwise, as above. Reason For Visit: ACUTE CHF EXACERBATION, COPD EXACERBATION Physical Exam Vital Signs: Temp Pulse Resp BP Pulse Ox 98.5 F 75 16 130/52 H 92 05/19/19 03:38 05/19/19 07:00 05/19/19 03:38 05/19/19 03:38 05/19/19 03:38 Intake & Output 05/18/19 05/19/19 05/20/19 06:59 06:59 06:59 Intake Total 500 949 Output Total 300 Balance 500 649 Weight 53.8 kg 56 kg General appearance: PRESENT: well-developed, well-nourished Head exam: PRESENT: normocephalic Eye exam: PRESENT: EOMI Respiratory exam: PRESENT: crackles - bibasilar., unlabored Cardiovascular exam: PRESENT: RRR Extremities exam: ABSENT: pedal edema Neurological exam: PRESENT: alert, awake, oriented to person, oriented to place, oriented to time, oriented to situation Psychiatric exam: PRESENT: appropriate affect Skin exam: PRESENT: normal color Results Laboratory Results: 05/19/19 05:34 05/19/19 05:34 05/18/19 05/18/19 05/18/19 09:39 09:48 16:18 WBC 3.9 L RBC 2.96 L Hgb 9.0 L Hct 26.4 L MCV 89 MCH 30.5 MCHC 34.3 RDW 16.9 H Plt Count 213 Seg Neutrophils % Lymphocytes % Monocytes % Eosinophils % Basophils % Absolute Neutrophils Absolute Lymphocytes Absolute Monocytes Absolute Eosinophils Absolute Basophils Retic Count (auto) Absolute Retic Sodium 130.4 L Potassium 3.5 L Chloride 94 L Carbon Dioxide 19 L Anion Gap 17 BUN 19 Creatinine 1.11 Est GFR ( Amer) 58 L Est GFR (Non-Af Amer) 48 L Glucose 160 H Calcium 8.1 L Magnesium 2.3 D PTH Intact 45.7 05/19/19 05/19/19 05/19/19 05:34 05:34 05:34 WBC 9.6 D RBC 2.75 L Hgb 8.5 L Hct 24.6 L MCV 90 MCH 31.1 MCHC 34.7 RDW 16.9 H Plt Count 223 Seg Neutrophils % Not Reportable Lymphocytes % Not Reportable Monocytes % Not Reportable Eosinophils % Not Reportable Basophils % Not Reportable Absolute Neutrophils Not Reportable Absolute Lymphocytes Not Reportable Absolute Monocytes Not Reportable Absolute Eosinophils Not Reportable Absolute Basophils Not Reportable Retic Count (auto) 2.13 Absolute Retic 0.059 Sodium 132.0 L Potassium 4.4 Chloride 99 Carbon Dioxide 22 Anion Gap 11 BUN 19 Creatinine 1.09 Est GFR ( Amer) > 60 Est GFR (Non-Af Amer) 49 L Glucose 139 H Calcium 8.1 L Magnesium 2.0 PTH Intact 05/17/19 05/17/19 05/17/19 12:05 12:05 12:05 Creatine Kinase 184 H CK-MB (CK-2) 1.28 Troponin I 0.036 NT-Pro-B Natriuret Pep 05634 H 05/17/19 05/17/19 05/18/19 21:30 21:30 03:22 Creatine Kinase 161 H 183 H CK-MB (CK-2) 1.08 Troponin I 0.030 NT-Pro-B Natriuret Pep 05/18/19 05/18/19 05/18/19 03:22 09:39 09:39 Creatine Kinase 166 H CK-MB (CK-2) 1.42 1.68 Troponin I 0.015 0.020 NT-Pro-B Natriuret Pep Impressions: Lung Scan-VQ NM 05/17/19 00:00 IMPRESSION: No evidence of pulmonary embolism. Chest X-Ray 05/17/19 12:21 IMPRESSION: Mild bibasilar predominant pulmonary fibrosis as seen on prior CT examination without acute abnormality of the lungs. Assessment & Plan - Diagnosis (1) Hypokalemia Is this a current diagnosis for this admission?: Yes Plan: Much improved with PO dosing of potassium. (2) Hypomagnesemia Is this a current diagnosis for this admission?: Yes (3) Hyponatremia Is this a current diagnosis for this admission?: Yes Plan: Stable. (4) Acute respiratory failure with hypoxia Is this a current diagnosis for this admission?: Yes Plan: Overall, this appears to be improving. Nothing currently to indicate that she has an occult malignancy, although plan further CT in Jul. VQ was negative for PE. Agree with plans to decrease steroids, walk more. Will add colace and she was recently started on meds that may help her appetite. Megace contraindicated while on other PO steroids. - Plan Summary Plan Summary: Nothing more to add at this point. I will see her again on Wednesday, if needed. Please call with any concerns over the weekend.
[2019-05-19 09:41] LABS: FOLATE 3.02 ng/mL (>2.76)
[2019-05-19] MEDS ORDERED: DOCUSATE SODIUM 100 MG CAPSULE PO SCH (10:00)
[2019-05-19] MEDS ORDERED: MAGNESIUM OXIDE 400 MG TABLET PO SCH (10:00)
[2019-05-19] MEDS: INSULIN LISPRO 100 UNIT/ML 3 ML VIAL SUBCUT SCH ×4 (10:26→23:47)
[2019-05-19] MEDS: POTASSIUM CHLORIDE 10 MEQ CAPSULE.ER PO SCH (10:31)
[2019-05-19] MEDS: MAGNESIUM OXIDE 400 MG TABLET PO SCH ×2 (10:32→19:38)
[2019-05-19] MEDS: FAMOTIDINE 20 MG TABLET PO SCH ×2 (10:33→21:07)
[2019-05-19] MEDS: CLOPIDOGREL BISULFATE 75 MG TABLET PO SCH (10:33)
[2019-05-19] MEDS: GABAPENTIN 100 MG CAPSULE PO SCH (10:33)
[2019-05-19] MEDS: SERTRALINE HCL 50 MG TABLET PO SCH (10:34)
[2019-05-19] MEDS: BUSPIRONE HCL 10 MG TABLET PO SCH ×2 (10:34→21:08)
[2019-05-19] MEDS: ASPIRIN 81 MG TABLET, ENT COATED PO SCH (10:34)
[2019-05-19] MEDS: METOPROLOL TARTRATE 25 MG TABLET PO SCH ×2 (10:35→21:07)
[2019-05-19] MEDS: FLUTICASONE/VILANTEROL 100-25 MCG/DOSE IH SCH (10:37)
[2019-05-19] MEDS: ENOXAPARIN SODIUM INJ 30 MG/0.3 ML DISP.SYRIN SUBCUT SCH (10:37)
[2019-05-19] MEDS: TIOTROPIUM BROMIDE DPI 5 CAP/KIT (18 MCG/CAP) IH SCH (10:38)
[2019-05-19] MEDS ORDERED: POLYETHYLENE GLYCOL 3350 POWDER 17 GM/1 PACKET PO PRN (12:49)
--- NOTE | 2019-05-19 13:16 | PDOC PROGRESS REPORT ---
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 Denies any recent hospitalization, denies any recent travel, reports medication adherence, denies any smoking, denies any recent upper/lower respiratory infections. Patient endorses drinking about 8 bottles of 500 cc of water every 24 hours on top of daily coffee intake. Worsening dyspnea on exertion, reporting home SPO2 of 50s with minimal exertion. Denies any fever, chest pain, vomiting, abdominal pain, diarrhea, constipation, any urinary symptoms. In ED she was found to be hypoxic, with low sodium and elevated creatinine and elevated BNP. Patient was started on BiPAP with IV steroids and hospital was consulted for admission. 05/18/2019. No acute events overnight. Patient was found to have multiple laboratory abnormalities in the morning labs, was started on electrolyte protocol. Patient is stating that she is feeling generalized weakness otherwise no shortness of breath has improved. Patient is also complaining of being very anxious because she is in the hospital and the fact that she has been diagnosed with cancer recently. Denies any fever, chills, nausea, vomiting, diarrhea, constipation or any urinary symptoms. 05/19/2019. No acute events overnight. Patient could not sleep overnight stating that could have been due to steroids that she is receiving. Denies any pain. Feels more energized since admission. Was able to walk to the restroom without getting too tired. Is able to walk in full sentences. Denies any fever, chills, nausea, vomiting. Complaining of constipation. Reason For Visit: ACUTE CHF EXACERBATION, COPD EXACERBATION Physical Exam Vital Signs: Temp Pulse Resp BP Pulse Ox 98.5 F 64 17 130/52 H 92 05/19/19 03:38 05/19/19 08:36 05/19/19 08:36 05/19/19 03:38 05/19/19 08:36 Intake & Output 07/18/19 07/19/19 07/20/19 06:59 06:59 06:59 Intake Total 500 949 Output Total 300 Balance 500 649 Weight 53.8 kg 56 kg General appearance: PRESENT: no acute distress, well-developed, well-nourished Head exam: PRESENT: atraumatic, normocephalic Eye exam: PRESENT: conjunctiva pink, EOMI, PERRLA. ABSENT: scleral icterus Ear exam: PRESENT: normal external ear exam Mouth exam: PRESENT: moist, tongue midline Neck exam: ABSENT: carotid bruit, JVD, lymphadenopathy, thyromegaly Respiratory exam: PRESENT: crackles. ABSENT: rales, rhonchi, wheezes Cardiovascular exam: PRESENT: RRR. ABSENT: diastolic murmur, rubs, systolic murmur Pulses: PRESENT: normal dorsalis pedis pul Vascular exam: PRESENT: normal capillary refill GI/Abdominal exam: PRESENT: normal bowel sounds, soft. ABSENT: distended, guarding, mass, organolmegaly, rebound, tenderness Rectal exam: PRESENT: deferred Extremities exam: PRESENT: full ROM. ABSENT: calf tenderness, clubbing, pedal edema Neurological exam: PRESENT: alert, awake, oriented to person, oriented to place, oriented to time, oriented to situation, CN II-XII grossly intact. ABSENT: motor sensory deficit Psychiatric exam: PRESENT: appropriate affect, normal mood. ABSENT: homicidal ideation, suicidal ideation Skin exam: PRESENT: dry, intact, warm. ABSENT: cyanosis, rash Results Laboratory Results: 05/19/19 05:34 05/19/19 05:34 05/18/19 05/19/19 05/19/19 16:18 05:34 05:34 WBC 9.6 D RBC 2.75 L Hgb 8.5 L Hct 24.6 L MCV 90 MCH 31.1 MCHC 34.7 RDW 16.9 H Plt Count 223 Seg Neutrophils % Not Reportable Lymphocytes % Not Reportable Monocytes % Not Reportable Eosinophils % Not Reportable Basophils % Not Reportable Absolute Neutrophils Not Reportable Absolute Lymphocytes Not Reportable Absolute Monocytes Not Reportable Absolute Eosinophils Not Reportable Absolute Basophils Not Reportable Retic Count (auto) Absolute Retic Sodium 130.4 L 132.0 L Potassium 3.5 L 4.4 Chloride 94 L 99 Carbon Dioxide 19 L 22 Anion Gap 17 11 BUN 19 19 Creatinine 1.11 1.09 Est GFR ( Amer) 58 L > 60 Est GFR (Non-Af Amer) 48 L 49 L Glucose 160 H 139 H Calcium 8.1 L 8.1 L Magnesium 2.3 D 2.0 Iron TIBC % Saturation Ferritin Vitamin B12 Folate 05/19/19 05/19/19 05:34 05:34 WBC RBC Hgb Hct MCV MCH MCHC RDW Plt Count Seg Neutrophils % Lymphocytes % Monocytes % Eosinophils % Basophils % Absolute Neutrophils Absolute Lymphocytes Absolute Monocytes Absolute Eosinophils Absolute Basophils Retic Count (auto) 2.13 Absolute Retic 0.059 Sodium Potassium Chloride Carbon Dioxide Anion Gap BUN Creatinine Est GFR ( Amer) Est GFR (Non-Af Amer) Glucose Calcium Magnesium Iron 31.6 L TIBC 354 % Saturation 9 Ferritin 86.10 Vitamin B12 429.0 Folate 3.02 05/17/19 05/17/19 05/17/19 12:05 12:05 12:05 Creatine Kinase 184 H CK-MB (CK-2) 1.28 Troponin I 0.036 NT-Pro-B Natriuret Pep 81574 H 05/17/19 05/17/19 05/18/19 21:30 21:30 03:22 Creatine Kinase 161 H 183 H CK-MB (CK-2) 1.08 Troponin I 0.030 NT-Pro-B Natriuret Pep 05/18/19 05/18/19 05/18/19 03:22 09:39 09:39 Creatine Kinase 166 H CK-MB (CK-2) 1.42 1.68 Troponin I 0.015 0.020 NT-Pro-B Natriuret Pep Impressions: Lung Scan-VQ NM 05/17/19 00:00 IMPRESSION: No evidence of pulmonary embolism. Chest X-Ray 05/17/19 12:21 IMPRESSION: Mild bibasilar predominant pulmonary fibrosis as seen on prior CT examination without acute abnormality of the lungs. Assessment and Plan - Diagnosis (1) Acute exacerbation of CHF (congestive heart failure) Qualifiers: Heart failure type: systolic Qualified Code(s): I50.23 - Acute on chronic systolic (congestive) heart failure Is this a current diagnosis for this admission?: Yes Plan: Improving. SPO2 97% 4 L NC. Acute systolic heart failure likely due to excessive fluid intake. She reports compliance with her medication however reports excessive fluid intake. 05/18/2019. ABG: pH 7.46, PCO2 25.5, PO2 65.4, FiO2 21%. 05/17/2019. pH 7.47, PCO2 26.9, PO2 96.3, FiO2 35% WBC 8.9, hemoglobin 11.5, platelets 292 Sodium 130, potassium 4.3, bicarb 21, BUN 19, creatinine 1.61 Troponin 0.036, proBNP 12,900. EKG no acute changes. Mild elevated troponin. 05/19/2019. VQ scan negative for PE. Admit to telemetry, cardiac diet, fluid restriction, strict in and out, IV diuretics, beta-blockers, daily weights, 2D echo, trend troponins, follow-up EKG. (2) Acute respiratory failure with hypoxia Is this a current diagnosis for this admission?: Yes Plan: Likely combination of acute CHF exacerbation and COPD exacerbation. DuoNeb's, supplemental oxygen, BiPAP, flutter valve, pulmonary toileting, incentive spirometry, IV steroids, LABA's/LAMA's. Continue treating underlying acute CHF exacerbation. 05/17/2019. pH 7.47, PCO2 26.9, PO2 96.3, FiO2 35% WBC 8.9, hemoglobin 11.5, platelets 292 Sodium 130, potassium 4.3, bicarb 21, BUN 19, creatinine 1.61 Troponin 0.036, proBNP 12,900. (3) Hyponatremia Is this a current diagnosis for this admission?: Yes Plan: Improving. Likely a combination of SIADH due to underlying lung cancer and delusional hyponatremia due to CHF exacerbation. As per #1. Monitor for seizures. (4) COPD with exacerbation Is this a current diagnosis for this admission?: Yes Plan: As per #2 (5) ALTON (acute kidney injury) Is this a current diagnosis for this admission?: Yes Plan: Resolved. Creatinine back to baseline. Prerenal likely due to intravascular volume depletion due to CHF exacerbation. Cautious diuresis guided by volume status, avoid nephrotoxic meds. If no improvement will consult nephrology. (6) CAD (coronary artery disease) Is this a current diagnosis for this admission?: Yes Plan: Status post PCI x2 stent placement. Denies any active anginal symptoms. Continue DAPT, beta-blockers, statins. Follow-up 2D echo. Patient may benefit from KIM/ARB if kidney function improves. (7) Hypertension Is this a current diagnosis for this admission?: Yes Plan: Normotensive. Continue beta-blockers, diuretics. Monitor volume status. Adjust meds as needed. (8) Small bowel arteriovenous malformation Is this a current diagnosis for this admission?: Yes Plan: History of small bowel AVM as per enteroscopy resolved. History of iron deficiency anemia, requiring iron transfusions in the past. Monitor H&H, supportive transfusions, restart home meds. (9) Diabetes type 2, controlled Is this a current diagnosis for this admission?: Yes Plan: Takes metformin as outpatient. Reports good control. Diabetic diet, pre-meal insulin, sliding scale insulin, long-acting insulin, Accu-Chek, hypoglycemia protocol. Adjust dosage as needed. Restart home meds upon discharge. Outpatient PCP follow-up. (10) Former smoker Is this a current diagnosis for this admission?: Yes Plan: Nicotine patch will be made available if patient desires. Counseled on abstaining from tobacco. (11) Lung cancer Is this a current diagnosis for this admission?: Yes Plan: As per Dr. Oneil oncologist note there is no sign of occult malignancy. Patient is scheduled to have a CT done in July as outpatient with oncologist. Patient reports history of recently diagnosed questionable lung cancer. As per patient she had a lymph node biopsy which was positive but as per radiologist it was insufficient sample. Patient follows up with Dr. Marquez as an outpatient and repeat CT is planned in July. Oncology following. Recommendations noted. Outpatient oncology follow-up. (12) Hyperlipidemia Is this a current diagnosis for this admission?: Yes Plan: Continue statins. LFTs WNL. Diet and lifestyle modification recommended. Outpatient PCP follow-up. (13) Hypothyroidism Is this a current diagnosis for this admission?: Yes Plan: Restart home meds. TSH WNL. (14) Iron deficiency anemia Qualifiers: Iron deficiency anemia type: chronic blood loss Qualified Code(s): D50.0 - Iron deficiency anemia secondary to blood loss (chronic) Is this a current diagnosis for this admission?: Yes Plan: As per #7. Monitor H&H. Continue ferrous sulfate. Supportive transfusions. (15) GERD (gastroesophageal reflux disease) Is this a current diagnosis for this admission?: Yes Plan: Restart home meds. (16) Anxiety and depression Is this a current diagnosis for this admission?: Yes Plan: Complaining of general anxiety and depression to being diagnosed with possible lung cancer recently. Denies any SI/HI. Start on BuSpar 10 mg p.o. twice daily Discontinue Prozac. Started on Remeron which will help with her sleep and appetite as well as her depression. Outpatient PCP follow-up. (17) Hypocalcemia Is this a current diagnosis for this admission?: Yes Plan: Resolved. Calcium WNL. It was likely due to overdiuresis. PTH vitamin D WNL. Replace as needed. Calcium level tomorrow. (18) Hypokalemia Is this a current diagnosis for this admission?: Yes Plan: 12. Potassium WNL. It was likely due to overdiuresis. No acute EKG changes. Continue supplemental potassium. BMP tomorrow. (19) Hypomagnesemia Is this a current diagnosis for this admission?: Yes Plan: Resolved. Magnesium WNL. It was likely due to overdiuresis. Continue supplemental magnesium. Magnesium level tomorrow.
[2019-05-19] MEDS: DOCUSATE SODIUM 100 MG CAPSULE PO SCH (19:39)
[2019-05-19] MEDS: FERROUS SULFATE 325 MG TABLET PO SCH (19:44)
[2019-05-19] MEDS: ATORVASTATIN CALCIUM 40 MG TABLET PO SCH (21:08)
[2019-05-19] MEDS: TEMAZEPAM 15 MG CAPSULE PO SCH (21:12)
[2019-05-19] MEDS ORDERED: MIRTAZAPINE 15 MG TABLET PO SCH (22:00)
[2019-05-20 05:37] LABS: HEMATOCRIT 23.8 % (36.0-47.0); MEAN CORPUSCULAR HEMOGLOBIN 30.3 pg (27.0-33.4); MEAN CORPUSCULAR HGB CONC 33.6 g/dL (32.0-36.0); MEAN CORPUSCULAR VOLUME 90 fl (80-97); PLATELET COUNT 249 10^3/uL (150-450); RED BLOOD COUNT 2.64 10^6/uL (3.72-5.28); RED CELL DISTRIBUTION WIDTH 16.9 % (11.5-14.0); WHITE BLOOD COUNT 12.7 10^3/uL (4.0-10.5)
[2019-05-20 05:57] LABS: ALANINE AMINOTRANSFERASE 17 U/L (9-52); ALBUMIN 3.7 g/dL (3.5-5.0); ALKALINE PHOSPHATASE 58 U/L (38-126); ANION GAP 10 (5-19); ASPARTATE AMINO TRANSFERASE 28 U/L (14-36); BILIRUBIN,DIRECT 0.3 mg/dL (0.0-0.4); BILIRUBIN,TOTAL 0.6 mg/dL (0.2-1.3); BLOOD UREA NITROGEN 23 mg/dL (7-20); CALCIUM 8.7 mg/dL (8.4-10.2); CARBON DIOXIDE 26 mmol/L (22-30); CHLORIDE 97 mmol/L (98-107); GLUCOSE 142 mg/dL (75-110); TOTAL PROTEIN 6.8 g/dL (6.3-8.2)
[2019-05-20 06:00] LABS: ABSOLUTE LYMPHOCYTES# (MANUAL) 0.6 10^3/uL (0.5-4.7); ABSOLUTE MONOCYTES # (MANUAL) 0.1 10^3/uL (0.1-1.4); BASOPHILS % (MANUAL) 0 % (0-2); EOSINOPHILS % (MANUAL) 0 % (0-6); LYMPHOCYTES % (MANUAL) 5 % (13-45); MONOCYTES % (MANUAL) 1 % (3-13); SEGMENTED NEUTROPHILS % (MAN) 94 % (42-78); TOTAL CELLS COUNTED 100
[2019-05-20 06:01] LABS: ANISOCYTOSIS 1+; BURR CELLS SLIGHT; PLATELET COMMENT ADEQUATE
[2019-05-20 06:02] LABS: POIKILOCYTOSIS SLIGHT
[2019-05-20 06:05] LABS: POTASSIUM 5.4 mmol/L (3.6-5.0)
[2019-05-20] MEDS: METHYLPREDNISOLONE INJ 40 MG/1 ML SDV IV SCH ×3 (06:33→21:56)
[2019-05-20] MEDS: FUROSEMIDE INJ/PF 20 MG/2 ML SDV IV SCH (06:33)
[2019-05-20] MEDS: LEVOTHYROXINE SODIUM 0.05 MG TABLET PO SCH (06:33)
[2019-05-20 06:46] LABS: ARTERIAL BLOOD BASE EXCESS 0.6 mmol/L; ARTERIAL BLOOD O2 SATURATION 96.2 % (94-98); ARTERIAL BLOOD PCO2 33.3 mmHg (35-45); ARTERIAL BLOOD PH 7.48 (7.35-7.45); ARTERIAL BLOOD PO2 76.3 mmHg (80-100)
[2019-05-20 06:47] LABS: ARTERIAL BLOOD FIO2 38%
[2019-05-20] MEDS: IPRATROPIUM BROMIDE 0.02% NEB 0.5 MG/2.5 ML AMPUL NEB SCH ×3 (08:11→20:38)
[2019-05-20] MEDS: LEVALBUTEROL HCL NEB 1.25 MG/3 ML AMPUL NEB SCH ×3 (08:11→20:38)
[2019-05-20] MEDS: INSULIN LISPRO 100 UNIT/ML 3 ML VIAL SUBCUT SCH ×4 (08:40→21:28)
[2019-05-20] MEDS ORDERED: SODIUM POLYSTYRENE SULFONATE 15 GM/60 ML PO ONE (09:00)
[2019-05-20] MEDS: METOPROLOL TARTRATE 25 MG TABLET PO SCH ×2 (09:49→21:26)
[2019-05-20] MEDS: MAGNESIUM OXIDE 400 MG TABLET PO SCH ×2 (09:49→17:45)
[2019-05-20] MEDS: BUSPIRONE HCL 10 MG TABLET PO SCH ×2 (09:49→21:27)
[2019-05-20] MEDS: FAMOTIDINE 20 MG TABLET PO SCH ×2 (09:49→21:28)
[2019-05-20] MEDS: ASPIRIN 81 MG TABLET, ENT COATED PO SCH (09:49)
[2019-05-20] MEDS: DOCUSATE SODIUM 100 MG CAPSULE PO SCH ×2 (09:49→17:45)
[2019-05-20] MEDS: GABAPENTIN 100 MG CAPSULE PO SCH (09:50)
[2019-05-20] MEDS: CLOPIDOGREL BISULFATE 75 MG TABLET PO SCH (09:50)
[2019-05-20] MEDS: ENOXAPARIN SODIUM INJ 30 MG/0.3 ML DISP.SYRIN SUBCUT SCH (09:50)
[2019-05-20] MEDS: FERROUS SULFATE 325 MG TABLET PO SCH (09:50)
[2019-05-20] MEDS: FLUTICASONE/VILANTEROL 100-25 MCG/DOSE IH SCH (09:50)
[2019-05-20] MEDS: TIOTROPIUM BROMIDE DPI 5 CAP/KIT (18 MCG/CAP) IH SCH (09:53)
[2019-05-20] MEDS ORDERED: FUROSEMIDE 20 MG TABLET PO SCH (10:00)
[2019-05-20] MEDS ORDERED: ACETAMINOPHEN 325 MG TABLET PO ONE (10:30)
[2019-05-20 14:13] LABS: ANION GAP 16 (5-19); BLOOD UREA NITROGEN 26 mg/dL (7-20); CALCIUM 9.3 mg/dL (8.4-10.2); CARBON DIOXIDE 25 mmol/L (22-30); CHLORIDE 95 mmol/L (98-107); GLUCOSE 174 mg/dL (75-110); POTASSIUM 4.8 mmol/L (3.6-5.0)
--- NOTE | 2019-05-20 15:21 | PDOC PROGRESS REPORT ---
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 Denies any recent hospitalization, denies any recent travel, reports medication adherence, denies any smoking, denies any recent upper/lower respiratory infections. Patient endorses drinking about 8 bottles of 500 cc of water every 24 hours on top of daily coffee intake. Worsening dyspnea on exertion, reporting home SPO2 of 50s with minimal exertion. Denies any fever, chest pain, vomiting, abdominal pain, diarrhea, constipation, any urinary symptoms. In ED she was found to be hypoxic, with low sodium and elevated creatinine and elevated BNP. Patient was started on BiPAP with IV steroids and hospital was consulted for admission. 05/18/2019. No acute events overnight. Patient was found to have multiple laboratory abnormalities in the morning labs, was started on electrolyte protocol. Patient is stating that she is feeling generalized weakness otherwise no shortness of breath has improved. Patient is also complaining of being very anxious because she is in the hospital and the fact that she has been diagnosed with cancer recently. Denies any fever, chills, nausea, vomiting, diarrhea, constipation or any urinary symptoms. 05/19/2019. No acute events overnight. Patient could not sleep overnight stating that could have been due to steroids that she is receiving. Denies any pain. Feels more energized since admission. Was able to walk to the restroom without getting too tired. Is able to walk in full sentences. Denies any fever, chills, nausea, vomiting. Complaining of constipation. 05/20/2019. No acute events overnight. Patient had a good night sleep. In the morning patient seems to be excellent sleepy and unfortunately still dependent on 5 L of oxygen. Complaining of weakness, denies any fever, chills, nausea, vomiting. Had a bowel movement. Reason For Visit: ACUTE CHF EXACERBATION, COPD EXACERBATION Physical Exam Vital Signs: Temp Pulse Resp BP Pulse Ox 99.5 F 84 24 H 129/63 H 96 05/20/19 11:29 05/20/19 11:29 05/20/19 11:29 05/20/19 11:29 05/20/19 11:29 Intake & Output 05/19/19 05/20/19 05/21/19 06:59 06:59 06:59 Intake Total 949 865 620 Output Total 300 Balance 649 865 620 Weight 56 kg 55.4 kg General appearance: PRESENT: thin Head exam: PRESENT: atraumatic, normocephalic Respiratory exam: PRESENT: clear to auscultation rob. ABSENT: rales, rhonchi, wheezes Cardiovascular exam: PRESENT: RRR. ABSENT: diastolic murmur, rubs, systolic murmur Pulses: PRESENT: normal dorsalis pedis pul Neurological exam: PRESENT: alert, awake, oriented to person, oriented to place, oriented to time, oriented to situation, CN II-XII grossly intact. ABSENT: motor sensory deficit Results Laboratory Results: 05/20/19 05:08 05/20/19 13:36 05/20/19 05/20/19 05/20/19 05:08 05:08 06:20 WBC 12.7 H RBC 2.64 L Hgb 8.0 L Hct 23.8 L MCV 90 MCH 30.3 MCHC 33.6 RDW 16.9 H Plt Count 249 Seg Neutrophils % Not Reportable Lymphocytes % Not Reportable Monocytes % Not Reportable Eosinophils % Not Reportable Basophils % Not Reportable Absolute Neutrophils Not Reportable Absolute Lymphocytes Not Reportable Absolute Monocytes Not Reportable Absolute Eosinophils Not Reportable Absolute Basophils Not Reportable Carbonic Acid 1.00 L HCO3/H2CO3 Ratio 24:1 ABG pH 7.48 H ABG pCO2 33.3 L ABG pO2 76.3 L ABG HCO3 24.0 ABG O2 Saturation 96.2 ABG Base Excess 0.6 FiO2 38% Sodium 132.8 L Potassium 5.4 H D Chloride 97 L Carbon Dioxide 26 Anion Gap 10 BUN 23 H Creatinine 1.05 Est GFR ( Amer) > 60 Est GFR (Non-Af Amer) 51 L Glucose 142 H Calcium 8.7 Magnesium 2.2 Total Bilirubin 0.6 AST 28 ALT 17 Alkaline Phosphatase 58 Total Protein 6.8 Albumin 3.7 05/20/19 13:36 WBC RBC Hgb Hct MCV MCH MCHC RDW Plt Count Seg Neutrophils % Lymphocytes % Monocytes % Eosinophils % Basophils % Absolute Neutrophils Absolute Lymphocytes Absolute Monocytes Absolute Eosinophils Absolute Basophils Carbonic Acid HCO3/H2CO3 Ratio ABG pH ABG pCO2 ABG pO2 ABG HCO3 ABG O2 Saturation ABG Base Excess FiO2 Sodium 135.6 L Potassium 4.8 Chloride 95 L Carbon Dioxide 25 Anion Gap 16 BUN 26 H Creatinine 1.10 Est GFR ( Amer) 59 L Est GFR (Non-Af Amer) 49 L Glucose 174 H Calcium 9.3 Magnesium Total Bilirubin AST ALT Alkaline Phosphatase Total Protein Albumin 05/17/19 05/17/19 05/17/19 12:05 12:05 12:05 Creatine Kinase 184 H CK-MB (CK-2) 1.28 Troponin I 0.036 NT-Pro-B Natriuret Pep 57454 H 05/17/19 05/17/19 05/18/19 21:30 21:30 03:22 Creatine Kinase 161 H 183 H CK-MB (CK-2) 1.08 Troponin I 0.030 NT-Pro-B Natriuret Pep 05/18/19 05/18/19 05/18/19 03:22 09:39 09:39 Creatine Kinase 166 H CK-MB (CK-2) 1.42 1.68 Troponin I 0.015 0.020 NT-Pro-B Natriuret Pep Impressions: Lung Scan-VQ NM 05/17/19 00:00 IMPRESSION: No evidence of pulmonary embolism. Chest X-Ray 05/17/19 12:21 IMPRESSION: Mild bibasilar predominant pulmonary fibrosis as seen on prior CT examination without acute abnormality of the lungs. Assessment and Plan - Diagnosis (1) Acute exacerbation of CHF (congestive heart failure) Qualifiers: Heart failure type: systolic Qualified Code(s): I50.23 - Acute on chronic systolic (congestive) heart failure Is this a current diagnosis for this admission?: Yes Plan: Unchanged. Still dependent on 4 to 5 L of oxygen. Acute systolic heart failure likely due to excessive fluid intake. She reports compliance with her medication however reports excessive fluid intake. 05/18/2019. ABG: pH 7.46, PCO2 25.5, PO2 65.4, FiO2 21%. 05/17/2019. pH 7.47, PCO2 26.9, PO2 96.3, FiO2 35% WBC 8.9, hemoglobin 11.5, platelets 292 Sodium 130, potassium 4.3, bicarb 21, BUN 19, creatinine 1.61 Troponin 0.036, proBNP 12,900. EKG no acute changes. Mild elevated troponin. 05/19/2019. VQ scan negative for PE. Continue telemetry, cardiac diet, fluid restriction, strict in and out, p.o. diuretics, beta-blockers, daily weights. Pending echo. (2) Acute respiratory failure with hypoxia Is this a current diagnosis for this admission?: Yes Plan: Likely combination of acute CHF exacerbation and COPD exacerbation. DuoNeb's, supplemental oxygen, BiPAP, flutter valve, pulmonary toileting, incentive spirometry, IV steroids, LABA's/LAMA's. Continue treating underlying acute CHF exacerbation. 05/17/2019. pH 7.47, PCO2 26.9, PO2 96.3, FiO2 35% WBC 8.9, hemoglobin 11.5, platelets 292 Sodium 130, potassium 4.3, bicarb 21, BUN 19, creatinine 1.61 Troponin 0.036, proBNP 12,900. (3) Hyponatremia Is this a current diagnosis for this admission?: Yes Plan: Resolved. Likely a combination of SIADH due to underlying lung cancer and delusional hyponatremia due to CHF exacerbation. As per #1. (4) COPD with exacerbation Is this a current diagnosis for this admission?: Yes Plan: As per #2 (5) ALTON (acute kidney injury) Is this a current diagnosis for this admission?: Yes Plan: Resolved. Creatinine back to baseline. Prerenal likely due to intravascular volume depletion due to CHF exacerbation. Cautious diuresis guided by volume status, avoid nephrotoxic meds. If no improvement will consult nephrology. (6) CAD (coronary artery disease) Is this a current diagnosis for this admission?: Yes Plan: Status post PCI x2 stent placement. Denies any active anginal symptoms. Continue DAPT, beta-blockers, statins. Follow-up 2D echo. Patient may benefit from KIM/ARB if kidney function improves. (7) Hypertension Is this a current diagnosis for this admission?: Yes Plan: Normotensive. Continue beta-blockers, diuretics. Monitor volume status. Adjust meds as needed. (8) Small bowel arteriovenous malformation Is this a current diagnosis for this admission?: Yes Plan: History of small bowel AVM as per enteroscopy resolved. History of iron deficiency anemia, requiring iron transfusions in the past. Monitor H&H, supportive transfusions, restart home meds. (9) Diabetes type 2, controlled Is this a current diagnosis for this admission?: Yes Plan: Takes metformin as outpatient. Reports good control. Diabetic diet, pre-meal insulin, sliding scale insulin, long-acting insulin, Accu-Chek, hypoglycemia protocol. Adjust dosage as needed. Restart home meds upon discharge. Outpatient PCP follow-up. (10) Former smoker Is this a current diagnosis for this admission?: Yes Plan: Nicotine patch will be made available if patient desires. Counseled on abstaining from tobacco. (11) Lung cancer Is this a current diagnosis for this admission?: Yes Plan: As per Dr. Oneil oncologist note there is no sign of occult malignancy. Patient is scheduled to have a CT done in July as outpatient with oncologist. Patient reports history of recently diagnosed questionable lung cancer. As per patient she had a lymph node biopsy which was positive but as per radiologist it was insufficient sample. Patient follows up with Dr. Marquez as an outpatient and repeat CT is planned in July. Oncology following. Recommendations noted. Outpatient oncology follow-up. (12) Hyperlipidemia Is this a current diagnosis for this admission?: Yes Plan: Continue statins. LFTs WNL. Diet and lifestyle modification recommended. Outpatient PCP follow-up. (13) Hypothyroidism Is this a current diagnosis for this admission?: Yes Plan: Restart home meds. TSH WNL. (14) Iron deficiency anemia Qualifiers: Iron deficiency anemia type: chronic blood loss Qualified Code(s): D50.0 - Iron deficiency anemia secondary to blood loss (chronic) Is this a current diagnosis for this admission?: Yes Plan: As per #7. Monitor H&H. Continue ferrous sulfate. Supportive transfusions. (15) GERD (gastroesophageal reflux disease) Is this a current diagnosis for this admission?: Yes Plan: Restart home meds. (16) Anxiety and depression Is this a current diagnosis for this admission?: Yes Plan: Complaining of general anxiety and depression to being diagnosed with possible lung cancer recently. Denies any SI/HI. Start on BuSpar 10 mg p.o. twice daily Back to Prozac. Patient insulin up to mirtazapine. Patient becomes too drowsy. Which puts her at risk of fall. Will DC mirtazapine at this point. Outpatient PCP follow-up. (17) Hypocalcemia Is this a current diagnosis for this admission?: Yes Plan: Resolved. Calcium WNL. It was likely due to overdiuresis. PTH vitamin D WNL. Replace as needed. Calcium level tomorrow. (18) Hypokalemia Is this a current diagnosis for this admission?: Yes Plan: Potassium WNL. It was likely due to overdiuresis. No acute EKG changes. Continue supplemental potassium. BMP tomorrow. (19) Hypomagnesemia Is this a current diagnosis for this admission?: Yes Plan: Resolved. Magnesium WNL. It was likely due to overdiuresis. Continue supplemental magnesium. Magnesium level tomorrow.
[2019-05-20 16:48] LABS: ARTERIAL BLOOD BASE EXCESS 3.4 mmol/L; ARTERIAL BLOOD FIO2 6L; ARTERIAL BLOOD H2CO3 0.88 mmol/L (1.05-1.35); ARTERIAL BLOOD HCO3 25.3 mmol/L (20-24); ARTERIAL BLOOD O2 SATURATION 90.5 % (94-98); ARTERIAL BLOOD PCO2 29.4 mmHg (35-45); ARTERIAL BLOOD PH 7.55 (7.35-7.45); ARTERIAL BLOOD PO2 50.1 mmHg (80-100); ARTERIAL BLOOD TOTAL CO2 26.2 mmol/L (21-25)
--- NOTE | 2019-05-20 17:03 | RADIOLOGY REPORT (SQ) ---
EXAM DESCRIPTION: CHEST SINGLE VIEW COMPLETED DATE/TIME: 05/20/2019 4:52 pm REASON FOR STUDY: Low O2 COMPARISON: 05/17/2019 EXAM PARAMETERS: NUMBER OF VIEWS: One view. TECHNIQUE: Single frontal radiographic view of the chest acquired. RADIATION DOSE: NA LIMITATIONS: None. FINDINGS: Stable low volume AP portable radiograph with emphysema and pulmonary fibrosis. No acute airspace opacity. IMPRESSION: Stable low volume AP portable radiograph with emphysema and pulmonary fibrosis. No acut e airspace opacity. TECHNICAL DOCUMENTATION: JOB ID: [id number] [employer]- All Rights Reserved Reading location - IP/workstation name: [email or web address]
[2019-05-20] MEDS ORDERED: LORAZEPAM INJ 2 MG/1 ML VIAL ONE (17:09)
[2019-05-20 17:14] LABS: HEMATOCRIT 25.4 % (36.0-47.0); HEMOGLOBIN 8.4 g/dL (12.0-15.5); MEAN CORPUSCULAR HEMOGLOBIN 29.8 pg (27.0-33.4); MEAN CORPUSCULAR HGB CONC 33.1 g/dL (32.0-36.0); MEAN CORPUSCULAR VOLUME 90 fl (80-97); PLATELET COUNT 225 10^3/uL (150-450); RED BLOOD COUNT 2.82 10^6/uL (3.72-5.28); WHITE BLOOD COUNT 23.1 10^3/uL (4.0-10.5)
[2019-05-20] MEDS ORDERED: LORAZEPAM INJ 2 MG/1 ML VIAL IV ONE (17:30)
[2019-05-20 17:31] LABS: ABSOLUTE LYMPHOCYTES# (MANUAL) 0.2 10^3/uL (0.5-4.7); ABSOLUTE MONOCYTES # (MANUAL) 0.2 10^3/uL (0.1-1.4); BAND NEUTROPHILS % (MANUAL) 3 % (3-5); BASOPHILS % (MANUAL) 0 % (0-2); EOSINOPHILS % (MANUAL) 0 % (0-6); LYMPHOCYTES % (MANUAL) 1 % (13-45); MONOCYTES % (MANUAL) 1 % (3-13); SEGMENTED NEUTROPHILS % (MAN) 95 % (42-78); TOTAL CELLS COUNTED 100
[2019-05-20 17:33] LABS: ANISOCYTOSIS 1+; OVALOCYTES 1+; PLATELET COMMENT ADEQUATE; POIKILOCYTOSIS 1+; POLYCHROMASIA SLIGHT; TOXIC GRANULATION 1+
[2019-05-20] MEDS ORDERED: LEVALBUTEROL HCL NEB 1.25 MG/3 ML AMPUL NEB PRN (17:53)
--- NOTE | 2019-05-20 18:08 | EKG REPORT ---
SEVERITY:- ABNORMAL ECG - SINUS RHYTHM PROBABLE LVH WITH SECONDARY REPOL ABNRM NEW NONSPECIFIC INFERIOR ST-T CHANGES : Confirmed by: Samuel Rodgers MD 20-May-2019 18:07:14
[2019-05-20 19:08] LABS: ARTERIAL BLOOD BASE EXCESS 2.9 mmol/L; ARTERIAL BLOOD FIO2 40%; ARTERIAL BLOOD H2CO3 0.91 mmol/L (1.05-1.35); ARTERIAL BLOOD HCO3 25.2 mmol/L (20-24); ARTERIAL BLOOD O2 SATURATION 96.5 % (94-98); ARTERIAL BLOOD PCO2 30.2 mmHg (35-45); ARTERIAL BLOOD PH 7.54 (7.35-7.45); ARTERIAL BLOOD TOTAL CO2 26.2 mmol/L (21-25)
[2019-05-20] MEDS: ATORVASTATIN CALCIUM 40 MG TABLET PO SCH (21:27)
[2019-05-20] MEDS: TEMAZEPAM 15 MG CAPSULE PO SCH (21:27)
[2019-05-20] MEDS ORDERED: FAMOTIDINE INJ/PF 20 MG/2 ML SDV IV ONE (22:45)
[2019-05-20] MEDS ORDERED: DILTIAZEM HCL/D5W 125 MG/125 ML RTUINJ IV ONE (23:33)
[2019-05-20] MEDS: DILTIAZEM HCL/D5W 125 MG/125 ML RTUINJ IV PRN (23:45)
[2019-05-21] MEDS ORDERED: AMIODARONE HCL INJ 150 MG/3 ML VIAL IV ONE ×2 (00:14→01:00)
[2019-05-21] MEDS ORDERED: LORAZEPAM INJ 2 MG/1 ML VIAL ONE (00:14)
[2019-05-21] MEDS ORDERED: VANCOMYCIN HCL 0 MG in DEXTROSE 5%-WATER 250 ML IV NR (00:30)
[2019-05-21] MEDS ORDERED: VANCOMYCIN HCL INJ 500 MG VIAL ONE (00:58)
[2019-05-21] MEDS ORDERED: VANCOMYCIN HCL INJ 1000 MG VIAL ONE (00:58)
[2019-05-21] MEDS ORDERED: LORAZEPAM INJ 2 MG/1 ML VIAL IV ONE (01:00)
[2019-05-21] MEDS ORDERED: VANCOMYCIN HCL 1,250 MG in DEXTROSE 5%-WATER 250 ML IV ONE (01:15)
[2019-05-21] MEDS ORDERED: CEFEPIME 1 GM/D5W RTU 1 GM/50 ML RTUPB IV ONE (01:15)
[2019-05-21 03:50] LABS: APPEARANCE,URINE CLEAR; BILIRUBIN,URINE NEGATIVE (NEGATIVE); COLOR,URINE YELLOW; GLUCOSE, URINE NEGATIVE (NEGATIVE); KETONES,URINE NEGATIVE (NEGATIVE); LEUKOCYTE ESTERASE,URINE NEGATIVE (NEGATIVE); NITRITE,URINE NEGATIVE (NEGATIVE); PROTEIN,URINE NEGATIVE (NEGATIVE); URINE SPECIFIC GRAVITY 1.011; UROBILINOGEN,URINE NEGATIVE mg/dL (<2.0)
[2019-05-21 04:49] LABS: HEMOGLOBIN 8.7 g/dL (12.0-15.5); MEAN CORPUSCULAR HEMOGLOBIN 30.3 pg (27.0-33.4); MEAN CORPUSCULAR HGB CONC 33.5 g/dL (32.0-36.0); MEAN CORPUSCULAR VOLUME 91 fl (80-97); PLATELET COUNT 226 10^3/uL (150-450); RED BLOOD COUNT 2.88 10^6/uL (3.72-5.28); WHITE BLOOD COUNT 25.7 10^3/uL (4.0-10.5)
[2019-05-21] MEDS: LEVOTHYROXINE SODIUM 0.05 MG TABLET PO SCH (05:09)
[2019-05-21 05:15] LABS: ABSOLUTE LYMPHOCYTES# (MANUAL) 0.8 10^3/uL (0.5-4.7); ABSOLUTE MONOCYTES # (MANUAL) 0.3 10^3/uL (0.1-1.4); BASOPHILS % (MANUAL) 0 % (0-2); EOSINOPHILS % (MANUAL) 0 % (0-6); LYMPHOCYTES % (MANUAL) 3 % (13-45); MONOCYTES % (MANUAL) 1 % (3-13); SEGMENTED NEUTROPHILS % (MAN) 96 % (42-78); TOTAL CELLS COUNTED 100
[2019-05-21 05:16] LABS: ANISOCYTOSIS 1+; HYPOCHROMASIA 1+; PLATELET COMMENT ADEQUATE; POIKILOCYTOSIS 1+; SCHISTOCYTES SLIGHT
[2019-05-21 05:17] LABS: TARGET CELLS SLIGHT
[2019-05-21] MEDS: METHYLPREDNISOLONE INJ 40 MG/1 ML SDV IV SCH ×3 (05:27→23:46)
[2019-05-21] MEDS: LEVALBUTEROL HCL NEB 1.25 MG/3 ML AMPUL NEB SCH ×3 (07:47→21:17)
[2019-05-21] MEDS: IPRATROPIUM BROMIDE 0.02% NEB 0.5 MG/2.5 ML AMPUL NEB SCH ×3 (07:47→21:18)
[2019-05-21 08:08] LABS: ARTERIAL BLOOD BASE EXCESS 4.6 mmol/L; ARTERIAL BLOOD FIO2 40%; ARTERIAL BLOOD H2CO3 0.96 mmol/L (1.05-1.35); ARTERIAL BLOOD HCO3 27.1 mmol/L (20-24); ARTERIAL BLOOD PCO2 31.9 mmHg (35-45); ARTERIAL BLOOD PH 7.55 (7.35-7.45); ARTERIAL BLOOD PO2 64.2 mmHg (80-100); ARTERIAL BLOOD TOTAL CO2 28.1 mmol/L (21-25)
[2019-05-21] MEDS: INSULIN LISPRO 100 UNIT/ML 3 ML VIAL SUBCUT SCH ×4 (08:49→23:42)
[2019-05-21] MEDS ORDERED: DIGOXIN INJ 0.5 MG/2 ML AMPULE IV ONE (09:00)
--- NOTE | 2019-05-21 09:35 | EKG REPORT ---
SEVERITY:- ABNORMAL ECG - ATRIAL FIBRILLATION WITH RAPID V-RATE PROBABLE LVH WITH SECONDARY REPOL ABNRM ST DEPRESSION, PROBABLY RATE RELATED : Confirmed by: Samuel Rodgers MD 21-May-2019 09:34:51
[2019-05-21] MEDS ORDERED: FUROSEMIDE 20 MG TABLET PO SCH (10:00)
[2019-05-21] MEDS ORDERED: FAMOTIDINE INJ/PF 20 MG/2 ML SDV IV SCH (10:00)
[2019-05-21] MEDS: FLUTICASONE/VILANTEROL 100-25 MCG/DOSE IH SCH (10:11)
[2019-05-21] MEDS: FERROUS SULFATE 325 MG TABLET PO SCH (10:12)
[2019-05-21] MEDS: METOPROLOL TARTRATE 25 MG TABLET PO SCH ×2 (10:12→22:28)
[2019-05-21] MEDS: DOCUSATE SODIUM 100 MG CAPSULE PO SCH ×2 (10:12→17:07)
[2019-05-21] MEDS: ASPIRIN 81 MG TABLET, ENT COATED PO SCH (10:12)
[2019-05-21] MEDS: BUSPIRONE HCL 10 MG TABLET PO SCH ×2 (10:12→22:18)
[2019-05-21] MEDS: CLOPIDOGREL BISULFATE 75 MG TABLET PO SCH (10:13)
[2019-05-21] MEDS: GABAPENTIN 100 MG CAPSULE PO SCH (10:13)
[2019-05-21] MEDS: TIOTROPIUM BROMIDE DPI 5 CAP/KIT (18 MCG/CAP) IH SCH (10:13)
[2019-05-21] MEDS: MAGNESIUM OXIDE 400 MG TABLET PO SCH ×2 (10:13→17:08)
[2019-05-21] MEDS: ENOXAPARIN SODIUM INJ 30 MG/0.3 ML DISP.SYRIN SUBCUT SCH (10:18)
[2019-05-21] MEDS: CEFEPIME 1 GM/D5W RTU 1 GM/50 ML RTUPB IV SCH ×2 (10:19→23:46)
[2019-05-21] MEDS: DILTIAZEM HCL/D5W 125 MG/125 ML RTUINJ IV PRN ×3 (10:19→23:54)
--- NOTE | 2019-05-21 12:52 | PDOC PROGRESS REPORT ---
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 Denies any recent hospitalization, denies any recent travel, reports medication adherence, denies any smoking, denies any recent upper/lower respiratory infections. Patient endorses drinking about 8 bottles of 500 cc of water every 24 hours on top of daily coffee intake. Worsening dyspnea on exertion, reporting home SPO2 of 50s with minimal exertion. Denies any fever, chest pain, vomiting, abdominal pain, diarrhea, constipation, any urinary symptoms. In ED she was found to be hypoxic, with low sodium and elevated creatinine and elevated BNP. Patient was started on BiPAP with IV steroids and hospital was consulted for admission. 05/18/2019. No acute events overnight. Patient was found to have multiple laboratory abnormalities in the morning labs, was started on electrolyte protocol. Patient is stating that she is feeling generalized weakness otherwise no shortness of breath has improved. Patient is also complaining of being very anxious because she is in the hospital and the fact that she has been diagnosed with cancer recently. Denies any fever, chills, nausea, vomiting, diarrhea, constipation or any urinary symptoms. 05/19/2019. No acute events overnight. Patient could not sleep overnight stating that could have been due to steroids that she is receiving. Denies any pain. Feels more energized since admission. Was able to walk to the restroom without getting too tired. Is able to walk in full sentences. Denies any fever, chills, nausea, vomiting. Complaining of constipation. 05/20/2019. No acute events overnight. Patient had a good night sleep. In the morning patient seems to be excellent sleepy and unfortunately still dependent on 5 L of oxygen. Complaining of weakness, denies any fever, chills, nausea, vomiting. Had a bowel movement. 05/21/2019. Overnight patient has been dependent on BiPAP, and very hypoxic, with respiratory alkalosis, and tachypneic. Yesterday evening there was noted that she has leukocytosis and a blood culture was drawn which came back positive for gram-positive cocci in clusters, she was started on vancomycin and Zosyn overnight. Also noted to be on A. fib RVR and was started on Cardizem drip. SBP 669066, T-max 98.6, pulse 941 10, RR 3028, SPO2 90-97% FiO2 42%, BiPAP. ABG: pH 7.55, PCO2 31.9, PO2 64.2, FiO2 40%. WBC 25.7, hemoglobin 8.7, platelets 226. Reason For Visit: ACUTE CHF EXACERBATION, COPD EXACERBATION Physical Exam Vital Signs: Temp Pulse Resp BP Pulse Ox 98.6 F 94 25 H 106/54 L 97 05/21/19 11:48 05/21/19 11:48 05/21/19 11:48 05/21/19 11:48 05/21/19 11:48 Intake & Output 05/20/19 05/21/19 05/22/19 06:59 06:59 06:59 Intake Total 865 917 362 Output Total 50 175 Balance 865 867 187 Weight 55.4 kg 53.4 kg General appearance: PRESENT: severe distress, other - On BiPAP. Head exam: PRESENT: atraumatic, normocephalic Respiratory exam: PRESENT: crackles - Diffuse., symmetrical, tachypnea. ABSENT: rales, rhonchi, wheezes Cardiovascular exam: PRESENT: RRR. ABSENT: diastolic murmur, rubs, systolic murmur GI/Abdominal exam: PRESENT: normal bowel sounds, soft. ABSENT: distended, guarding, mass, organolmegaly, rebound, tenderness Neurological exam: PRESENT: alert, awake, oriented to person, oriented to place, oriented to time, CN II-XII grossly intact. ABSENT: motor sensory deficit Psychiatric exam: PRESENT: anxious Results Laboratory Results: 05/21/19 04:15 05/20/19 13:36 05/20/19 05/20/19 05/20/19 13:36 16:40 16:51 WBC 23.1 H RBC 2.82 L Hgb 8.4 L Hct 25.4 L MCV 90 MCH 29.8 MCHC 33.1 RDW 17.0 H Plt Count 225 Seg Neutrophils % Not Reportable Lymphocytes % Not Reportable Monocytes % Not Reportable Eosinophils % Not Reportable Basophils % Not Reportable Absolute Neutrophils Not Reportable Absolute Lymphocytes Not Reportable Absolute Monocytes Not Reportable Absolute Eosinophils Not Reportable Absolute Basophils Not Reportable Carbonic Acid 0.88 L HCO3/H2CO3 Ratio 28:1 ABG pH 7.55 H ABG pCO2 29.4 L ABG pO2 50.1 L ABG HCO3 25.3 H ABG O2 Saturation 90.5 L ABG Base Excess 3.4 FiO2 6L Sodium 135.6 L Potassium 4.8 Chloride 95 L Carbon Dioxide 25 Anion Gap 16 BUN 26 H Creatinine 1.10 Est GFR ( Amer) 59 L Est GFR (Non-Af Amer) 49 L Glucose 174 H Calcium 9.3 Urine Color Urine Appearance Urine pH Ur Specific [place] Urine Protein Urine Glucose (UA) Urine Ketones Urine Blood Urine Nitrite Ur Leukocyte Esterase Urine WBC (Auto) Urine RBC (Auto) 05/20/19 05/21/19 05/21/19 18:38 03:15 04:15 WBC 25.7 H RBC 2.88 L Hgb 8.7 L Hct 26.0 L MCV 91 MCH 30.3 MCHC 33.5 RDW 17.0 H Plt Count 226 Seg Neutrophils % Not Reportable Lymphocytes % Not Reportable Monocytes % Not Reportable Eosinophils % Not Reportable Basophils % Not Reportable Absolute Neutrophils Not Reportable Absolute Lymphocytes Not Reportable Absolute Monocytes Not Reportable Absolute Eosinophils Not Reportable Absolute Basophils Not Reportable Carbonic Acid 0.91 L HCO3/H2CO3 Ratio 27:1 ABG pH 7.54 H ABG pCO2 30.2 L ABG pO2 74.0 L ABG HCO3 25.2 H ABG O2 Saturation 96.5 ABG Base Excess 2.9 FiO2 40% Sodium Potassium Chloride Carbon Dioxide Anion Gap BUN Creatinine Est GFR ( Amer) Est GFR (Non-Af Amer) Glucose Calcium Urine Color YELLOW Urine Appearance CLEAR Urine pH 5.0 Ur Specific [place] 1.011 Urine Protein NEGATIVE Urine Glucose (UA) NEGATIVE Urine Ketones NEGATIVE Urine Blood LARGE H Urine Nitrite NEGATIVE Ur Leukocyte Esterase NEGATIVE Urine WBC (Auto) 3 Urine RBC (Auto) 8 05/21/19 07:50 WBC RBC Hgb Hct MCV MCH MCHC RDW Plt Count Seg Neutrophils % Lymphocytes % Monocytes % Eosinophils % Basophils % Absolute Neutrophils Absolute Lymphocytes Absolute Monocytes Absolute Eosinophils Absolute Basophils Carbonic Acid 0.96 L HCO3/H2CO3 Ratio 28:1 ABG pH 7.55 H ABG pCO2 31.9 L ABG pO2 64.2 L ABG HCO3 27.1 H ABG O2 Saturation 95.0 ABG Base Excess 4.6 FiO2 40% Sodium Potassium Chloride Carbon Dioxide Anion Gap BUN Creatinine Est GFR ( Amer) Est GFR (Non-Af Amer) Glucose Calcium Urine Color Urine Appearance Urine pH Ur Specific [place] Urine Protein Urine Glucose (UA) Urine Ketones Urine Blood Urine Nitrite Ur Leukocyte Esterase Urine WBC (Auto) Urine RBC (Auto) 05/17/19 05/17/19 05/17/19 12:05 12:05 12:05 Creatine Kinase 184 H CK-MB (CK-2) 1.28 Troponin I 0.036 NT-Pro-B Natriuret Pep 02577 H 05/17/19 05/17/19 05/18/19 21:30 21:30 03:22 Creatine Kinase 161 H 183 H CK-MB (CK-2) 1.08 Troponin I 0.030 NT-Pro-B Natriuret Pep 05/18/19 05/18/19 05/18/19 03:22 09:39 09:39 Creatine Kinase 166 H CK-MB (CK-2) 1.42 1.68 Troponin I 0.015 0.020 NT-Pro-B Natriuret Pep 05/20/19 16:51 Creatine Kinase CK-MB (CK-2) Troponin I 0.021 NT-Pro-B Natriuret Pep Impressions: Lung Scan-VQ NM 05/17/19 00:00 IMPRESSION: No evidence of pulmonary embolism. Chest X-Ray 05/20/19 00:00 IMPRESSION: Stable low volume AP portable radiograph with emphysema and pulmonary fibrosis. No acute airspace opacity. Assessment and Plan - Diagnosis (1) Acute respiratory failure with hypoxia Is this a current diagnosis for this admission?: Yes Plan: Worsening. Still dependent on BiPAP. Respiratory alkalosis with hypoxemia. Multifactorial. Due to combination of underlying severe COPD, severe pulmonary hypertension interstitial lung disease. 05/21/2019. SBP 706366, T-max 98.6, pulse 941 10, RR 3028 SPO2 90-97% FiO2 42%, BiPAP. ABG: pH 7.55, PCO2 31.9, PO2 64.2, FiO2 40%. WBC 25.7, hemoglobin 8.7, platelets 226. 05/18/2019. ABG: pH 7.46, PCO2 25.5, PO2 65.4, FiO2 21%. 05/17/2019. pH 7.47, PCO2 26.9, PO2 96.3, FiO2 35% WBC 8.9, hemoglobin 11.5, platelets 292 Sodium 130, potassium 4.3, bicarb 21, BUN 19, creatinine 1.61 Troponin 0.036, proBNP 12,900. 05/20/2019. CXR stable low-volume with emphysema and pulmonary fibrosis. 05/19/2019. VQ scan negative for PE. Continue BiPAP support, supplemental oxygen, empiric IV antibiotics, IV steroids. Low threshold for intubation. 2D echo done. Pending report. I was able to talk to Dr. Núñez talent program manager who kindly agreed to see patient today. (2) Severe pulmonary arterial systolic hypertension Is this a current diagnosis for this admission?: Yes Plan: Due to underlying severe interstitial lung disease/COPD. Severe pulmonary hypertension by echo. RVSP 83-88 mmHg. Per #1. Pulmonology consulted. Refer to note please. (3) Atrial fibrillation with RVR Is this a current diagnosis for this admission?: Yes Plan: New onset. Likely due to acute erosive failure. Cardizem drip. To be switched to p.o. cardizem or beta-blockers. Not a candidate for anticoagulation due to chronic GI bleed caused by AVM. Continue subcutaneous heparin DVT prophylaxis. Consult cardiology. (4) Gram-positive bacteremia Is this a current diagnosis for this admission?: Yes Plan: Continue empiric IV antibiotics. IV antibiotics day 1. IV Zosyn day 1. IV vancomycin day 1. Blood cultures +2/2 gram-positive cocci in clusters. Pending sensitivity. Follow-up culture. (5) Acute exacerbation of CHF (congestive heart failure) Qualifiers: Heart failure type: systolic Qualified Code(s): I50.23 - Acute on chronic systolic (congestive) heart failure Is this a current diagnosis for this admission?: Yes Plan: Acute systolic heart failure. No recent echo available. Pending echo. Continue diuretics, cardiac diet, volume restriction, KIM and BB. (6) Hyponatremia Is this a current diagnosis for this admission?: Yes Plan: Resolved. Likely a combination of SIADH due to underlying lung cancer and delusional hyponatremia due to CHF exacerbation. As per #1. (7) COPD with exacerbation Is this a current diagnosis for this admission?: Yes Plan: As per #1 (8) ALTON (acute kidney injury) Is this a current diagnosis for this admission?: Yes Plan: Resolved. Creatinine back to baseline. Prerenal likely due to intravascular volume depletion due to CHF exacerbation. Cautious diuresis guided by volume status, avoid nephrotoxic meds. If no improvement will consult nephrology. (9) CAD (coronary artery disease) Is this a current diagnosis for this admission?: Yes Plan: Status post PCI x2 stent placement. Denies any active anginal symptoms. Continue DAPT, beta-blockers, statins. Follow-up 2D echo. Patient may benefit from KIM/ARB if kidney function improves. (10) Hypertension Is this a current diagnosis for this admission?: Yes Plan: Normotensive. Continue beta-blockers, diuretics. Monitor volume status. Adjust meds as needed. 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 History of iron deficiency anemia, requiring iron transfusions in the past. Monitor H&H, supportive transfusions, restart home meds. (12) Diabetes type 2, controlled Is this a current diagnosis for this admission?: Yes Plan: Takes metformin as outpatient. Reports good control. Diabetic diet, pre-meal insulin, sliding scale insulin, long-acting insulin, Accu-Chek, hypoglycemia protocol. Adjust dosage as needed. Restart home meds upon discharge. Outpatient PCP follow-up. (13) Former smoker Is this a current diagnosis for this admission?: Yes Plan: Nicotine patch will be made available if patient desires. Counseled on abstaining from tobacco. (14) Lung cancer Is this a current diagnosis for this admission?: Yes Plan: As per Dr. Oneil oncologist note there is no sign of occult malignancy. Patient is scheduled to have a CT done in July as outpatient with oncologist. Patient reports history of recently diagnosed questionable lung cancer. As per patient she had a lymph node biopsy which was positive but as per radiolo gist it was insufficient sample. Patient follows up with Dr. Marqeuz as an outpatient and repeat CT is planned in July. Oncology following. Recommendations noted. Outpatient oncology follow-up. (15) Hyperlipidemia Is this a current diagnosis for this admission?: Yes Plan: Continue statins. LFTs WNL. Diet and lifestyle modification recommended. Outpatient PCP follow-up. (16) Hypothyroidism Is this a current diagnosis for this admission?: Yes Plan: Restart home meds. TSH WNL. (17) Iron deficiency anemia Qualifiers: Iron deficiency anemia type: chronic blood loss Qualified Code(s): D50.0 - Iron deficiency anemia secondary to blood loss (chronic) Is this a current diagnosis for this admission?: Yes Plan: As per #7. Monitor H&H. Continue ferrous sulfate. Supportive transfusions. (18) GERD (gastroesophageal reflux disease) Is this a current diagnosis for this admission?: Yes Plan: Restart home meds. (19) Anxiety and depression Is this a current diagnosis for this admission?: Yes Plan: Complaining of general anxiety and depression to being diagnosed with possible lung cancer recently. Denies any SI/HI. Start on BuSpar 10 mg p.o. twice daily Back to Prozac. Patient insulin up to mirtazapine. Patient becomes too drowsy. Which puts her at risk of fall. Will DC mirtazapine at this point. Outpatient PCP follow-up. (20) Hypocalcemia Is this a current diagnosis for this admission?: Yes Plan: Resolved. Calcium WNL. It was likely due to overdiuresis. PTH vitamin D WNL. Replace as needed. Calcium level tomorrow. (21) Hypokalemia Is this a current diagnosis for this admission?: Yes Plan: Potassium WNL. It was likely due to overdiuresis. No acute EKG changes. Continue supplemental potassium. BMP tomorrow. (22) Hypomagnesemia Is this a current diagnosis for this admission?: Yes Plan: Resolved. Magnesium WNL. It was likely due to overdiuresis. Continue supplemental magnesium. Magnesium level tomorrow.
--- NOTE | 2019-05-21 13:51 | XCELERA REPORT ---
[address] [address] Transthoracic Echocardiogram Report Name: JAVED WAY Age: 73 yrs Gender: Female : 1945 Patient Status: Inpatient Patient Location: [address] Study Date: 05/17/2019 07:45 PM Height: 66 in Weight: 123 lb BSA: 1.6 m2 Procedure: A two-dimensional transthoracic echocardiogram with color flow and Doppler was performed. The study was technically difficult with many images being suboptimal in quality. Images were not obtained from all of the standard acoustic windows due to the limited scope of the study. Reason For Study: CHD Exacerbation History: Shortness of breath. CHF. Ordering Physician: MICH LEONARDO Performed By: Mahsa Roberts Interpretation Summary The left ventricle is normal in size. No True apical 2 chamber views obtained.Hence cannot comment on the apical anterior , the basal anterior, the basal inferior and apical inferior harding.The mid anterior , the mid inferior and the rest of the LV harding contract normally. .Normal LVEF is normal and is greater than 65% in the limited views Doppler measurements suggest impaired left ventricular relaxation, which is associated with grade I/IV or mild diastolic dysfunction There is no thrombus. pROBABLY NO asd, vsd,OR pfo SEEN. The right ventricle is not well visualized secondary to technical limitations sUSPECT MILD TO MODERATE rv ENLARGEMENT, The right atrium is mildly dilated. Right atrium not well visualized secondary to technical limitations The left atrium is borderline dilated. There is no evidence of mitral valve prolapse. There is no vegetation seen on the mitral valve. There is no mitral valve stenosis. There is no mitral regurgitation noted. There is no aortic valvular vegetation. There is aortic sclerosis without aortic stenosis. There is no LVOT obstruction. No aortic regurgitation is present. There is no tricuspid stenosis. There is a mild to moderate amount of tricuspid regurgitation There is servere pulmonary hypertension by echo rvsp IS 83 TO 88 MM OF hG , WITH ra MEAN OF 5 TO 10. There is no pulmonic valvular stenosis. There is a moderate amount of pulmonic regurgitation The aortic root is normal size. The inferior vena cava appeared normal and decreased > 50% with respiration (RAP 5-10 mmHg) There is no pericardial effusion. MMode/2D Measurements & Calculations RVDd: 2.7 cm LVIDd: 4.1 cm FS: 38.5 % Ao root diam: 2.7 cm IVSd: 0.90 cm LVIDs: 2.5 cm EDV(Teich): Ao root area: LVPWd: 0.81 cm 73.5 ml 5.6 cm2 ESV(Teich): LA dimension: 3.8 cm 22.5 ml EF(Teich): 69.3 % LVLd ap4: 6.9 cm SV(MOD-sp4): EDV(MOD-sp4): 63.0 ml 86.0 ml LVLs ap4: 4.7 cm ESV(MOD-sp4): 23.0 ml EF(MOD-sp4): 73.3 % Doppler Measurements & Calculations MV E max lauryn: MV P1/2t max lauryn: Ao V2 max: LV V1 max P.8 cm/sec 60.4 cm/sec 129.2 cm/sec 2.7 mmHg MV A max lauryn: MV P1/2t: 67.8 msec Ao max PG: LV V1 max: 80.0 cm/sec MVA(P1/2t): 3.2 cm2 6.7 mmHg 81.9 cm/sec MV E/A: 0.67 MV dec slope: 261.0 cm/sec2 MV dec time: 0.25 sec PA V2 max: PI end-d lauryn: TR max lauryn: MV P1/2t-pr_phl: 90.9 cm/sec 234.8 cm/sec 441.1 cm/sec 67.8 msec PA max PG: TR max P.3 mmHg 77.8 mmHg Left Ventricle The left ventricle is normal in size. There is normal left ventricular wall thickness. No True apical 2 chamber views obtained.Hence cannot comment on the apical anterior , the basal anterior, the basal inferior and apical inferior harding.The mid anterior , the mid inferior and the rest of the LV harding contract normally. .Normal LVEF is normal and is greater than 65% in the limited views. Doppler measurements suggest impaired left ventricular relaxation, which is associated with grade I/IV or mild diastolic dysfunction. There is no thrombus. pROBABLY NO asd, vsd,OR pfo SEEN. Right Ventricle The right ventricle is not well visualized secondary to technical limitations. sUSPECT MILD TO MODERATE rv ENLARGEMENT,. Atria The right atrium is mildly dilated. Right atrium not well visualized secondary to technical limitations. The left atrium is borderline dilated. Mitral Valve There is no evidence of mitral valve prolapse. There is no vegetation seen on the mitral valve. There is no mitral valve stenosis. There is no mitral regurgitation noted. Aortic Valve There is no aortic valvular vegetation. There is aortic sclerosis without aortic stenosis. There is no LVOT obstruction. No aortic regurgitation is present. Tricuspid Valve There is no tricuspid stenosis. There is a mild to moderate amount of tricuspid regurgitation. There is servere pulmonary hypertension by echo. rvsp IS 83 TO 88 MM OF hG , WITH ra MEAN OF 5 TO 10. Pulmonic Valve There is no pulmonic valvular stenosis. There is a moderate amount of pulmonic regurgitation. Great Vessels The aortic root is normal size. The inferior vena cava appeared normal and decreased > 50% with respiration (RAP 5-10 mmHg). Effusions There is no pericardial effusion. : MICH LEONARDO > Deneen Puckett
[2019-05-21] MEDS ORDERED: NORMAL SALINE 1000 ML 1,000 ML IV PRN (14:52)
[2019-05-21] MEDS: ATORVASTATIN CALCIUM 40 MG TABLET PO SCH (22:20)
[2019-05-21] MEDS: TEMAZEPAM 15 MG CAPSULE PO SCH (22:28)
[2019-05-21] MEDS: VANCOMYCIN HCL 750 MG in DEXTROSE 5%-WATER 250 ML IV SCH (23:46)
[2019-05-22] MEDS: METHYLPREDNISOLONE INJ 40 MG/1 ML SDV IV SCH ×3 (05:30→21:18)
[2019-05-22] MEDS: NORMAL SALINE 1000 ML 1,000 ML IV PRN ×2 (05:30→18:02)
[2019-05-22] MEDS: LEVOTHYROXINE SODIUM 0.05 MG TABLET PO SCH (05:32)
[2019-05-22] MEDS ORDERED: GLUCAGON,HUMAN RECOMB 1 MG INJ IM PRN (07:31)
[2019-05-22] MEDS ORDERED: DEXTROSE 40% GEL 15 GM TUBE PO PRN ×2 (07:31)
[2019-05-22] MEDS ORDERED: DEXTROSE 50%-WATER 25 GM/50 ML DISP.SYRIN IV PRN ×2 (07:31)
[2019-05-22] MEDS: LEVALBUTEROL HCL NEB 1.25 MG/3 ML AMPUL NEB SCH ×3 (08:38→20:43)
[2019-05-22] MEDS: IPRATROPIUM BROMIDE 0.02% NEB 0.5 MG/2.5 ML AMPUL NEB SCH ×3 (08:38→20:43)
[2019-05-22] MEDS: INSULIN LISPRO 100 UNIT/ML 3 ML VIAL SUBCUT SCH ×4 (11:11→22:22)
[2019-05-22] MEDS: CEFEPIME 1 GM/D5W RTU 1 GM/50 ML RTUPB IV SCH ×2 (11:22→21:15)
[2019-05-22] MEDS: BUSPIRONE HCL 10 MG TABLET PO SCH ×2 (11:23→21:14)
[2019-05-22] MEDS: MAGNESIUM OXIDE 400 MG TABLET PO SCH ×2 (11:23→18:02)
[2019-05-22] MEDS: GABAPENTIN 100 MG CAPSULE PO SCH (11:23)
[2019-05-22] MEDS: METOPROLOL TARTRATE 25 MG TABLET PO SCH ×2 (11:24→21:14)
[2019-05-22] MEDS: ASPIRIN 81 MG TABLET, ENT COATED PO SCH (11:24)
[2019-05-22] MEDS: DOCUSATE SODIUM 100 MG CAPSULE PO SCH ×2 (11:24→18:03)
[2019-05-22] MEDS: FERROUS SULFATE 325 MG TABLET PO SCH (11:24)
[2019-05-22] MEDS: ENOXAPARIN SODIUM INJ 30 MG/0.3 ML DISP.SYRIN SUBCUT SCH (11:25)
[2019-05-22] MEDS: FAMOTIDINE INJ/PF 20 MG/2 ML SDV IV SCH (11:25)
[2019-05-22] MEDS: INSULIN GLARGINE,HUM.REC.ANLOG 1,000 UNIT/10 ML VIAL SUBCUT SCH (11:25)
[2019-05-22] MEDS: CLOPIDOGREL BISULFATE 75 MG TABLET PO SCH (11:29)
[2019-05-22] MEDS: TIOTROPIUM BROMIDE DPI 5 CAP/KIT (18 MCG/CAP) IH SCH (11:29)
[2019-05-22] MEDS: FLUTICASONE/VILANTEROL 100-25 MCG/DOSE IH SCH (11:29)
--- NOTE | 2019-05-22 12:03 | PDOC PROGRESS REPORT ---
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 Denies any recent hospitalization, denies any recent travel, reports medication adherence, denies any smoking, denies any recent upper/lower respiratory infections. Patient endorses drinking about 8 bottles of 500 cc of water every 24 hours on top of daily coffee intake. Worsening dyspnea on exertion, reporting home SPO2 of 50s with minimal exertion. Denies any fever, chest pain, vomiting, abdominal pain, diarrhea, constipation, any urinary symptoms. In ED she was found to be hypoxic, with low sodium and elevated creatinine and elevated BNP. Patient was started on BiPAP with IV steroids and hospital was consulted for admission. 05/18/2019. No acute events overnight. Patient was found to have multiple laboratory abnormalities in the morning labs, was started on electrolyte protocol. Patient is stating that she is feeling generalized weakness otherwise no shortness of breath has improved. Patient is also complaining of being very anxious because she is in the hospital and the fact that she has been diagnosed with cancer recently. Denies any fever, chills, nausea, vomiting, diarrhea, constipation or any urinary symptoms. 05/19/2019. No acute events overnight. Patient could not sleep overnight stating that could have been due to steroids that she is receiving. Denies any pain. Feels more energized since admission. Was able to walk to the restroom without getting too tired. Is able to walk in full sentences. Denies any fever, chills, nausea, vomiting. Complaining of constipation. 05/20/2019. No acute events overnight. Patient had a good night sleep. In the morning patient seems to be excellent sleepy and unfortunately still dependent on 5 L of oxygen. Complaining of weakness, denies any fever, chills, nausea, vomiting. Had a bowel movement. 05/21/2019. Overnight patient has been dependent on BiPAP, and very hypoxic, with respiratory alkalosis, and tachypneic. Yesterday evening there was noted that she has leukocytosis and a blood culture was drawn which came back positive for gram-positive cocci in clusters, she was started on vancomycin and Zosyn overnight. Also noted to be on A. fib RVR and was started on Cardizem drip. SBP 216200, T-max 98.6, pulse 941 10, RR 3028, SPO2 90-97% FiO2 42%, BiPAP. ABG: pH 7.55, PCO2 31.9, PO2 64.2, FiO2 40%. WBC 25.7, hemoglobin 8.7, platelets 226. 05/22/2019. No acute events overnight. Has been wearing BiPAP overnight. Was to transition to nasal cannula saturating 88-92 on 4 L. Does not seem to be in me apparent distress. Patient is alert oriented, cooperative with physical examination. Denies any fever, chills, nausea, vomiting, diarrhea, constipation or any urinary symptoms. P.o. tolerant. Reason For Visit: ACUTE CHF EXACERBATION, COPD EXACERBATION Physical Exam Vital Signs: Temp Pulse Resp BP Pulse Ox 97.4 F 80 15 123/71 97 05/22/19 07:44 05/22/19 08:38 05/22/19 08:38 05/22/19 07:44 05/22/19 08:38 Intake & Output 05/21/19 05/22/19 05/23/19 06:59 06:59 06:59 Intake Total 917 864 Output Total 50 850 Balance 867 14 Weight 53.4 kg 53 kg General appearance: PRESENT: mild distress Head exam: PRESENT: atraumatic, normocephalic Neck exam: ABSENT: carotid bruit, JVD, lymphadenopathy, thyromegaly Respiratory exam: PRESENT: crackles, symmetrical, tachypnea. ABSENT: rales, rhonchi, wheezes GI/Abdominal exam: PRESENT: normal bowel sounds, soft. ABSENT: distended, guarding, mass, organolmegaly, rebound, tenderness Extremities exam: PRESENT: calf tenderness Neurological exam: PRESENT: alert, awake, oriented to person, oriented to place, CN II-XII grossly intact. ABSENT: motor sensory deficit Results Laboratory Results: 05/21/19 04:15 05/20/19 13:36 05/17/19 05/17/19 05/17/19 12:05 12:05 12:05 Creatine Kinase 184 H CK-MB (CK-2) 1.28 Troponin I 0.036 NT-Pro-B Natriuret Pep 49791 H 05/17/19 05/17/19 05/18/19 21:30 21:30 03:22 Creatine Kinase 161 H 183 H CK-MB (CK-2) 1.08 Troponin I 0.030 NT-Pro-B Natriuret Pep 05/18/19 05/18/19 05/18/19 03:22 09:39 09:39 Creatine Kinase 166 H CK-MB (CK-2) 1.42 1.68 Troponin I 0.015 0.020 NT-Pro-B Natriuret Pep 05/20/19 16:51 Creatine Kinase CK-MB (CK-2) Troponin I 0.021 NT-Pro-B Natriuret Pep Impressions: Lung Scan-VQ NM 05/17/19 00:00 IMPRESSION: No evidence of pulmonary embolism. Chest X-Ray 05/20/19 00:00 IMPRESSION: Stable low volume AP portable radiograph with emphysema and pulmonary fibrosis. No acute airspace opacity. Assessment and Plan - Diagnosis (1) Acute respiratory failure with hypoxia Is this a current diagnosis for this admission?: Yes Plan: Mild improvement. Was on BiPAP overnight. Transition to NC 4 L SPO2 88 to 92%. Multifactorial. Due to combination of underlying severe COPD, severe pulmonary hypertension interstitial lung disease. 05/22/2019. SBP 1001 23, T-max 97.4, pulse 80s, RR 1517, SPO2 8892 4 L NC. WBC 25.7, hemoglobin 8.7, platelets 226 05/21/2019. SBP 374635, T-max 98.6, pulse 941 10, RR 3028 SPO2 90-97% FiO2 42%, BiPAP. ABG: pH 7.55, PCO2 31.9, PO2 64.2, FiO2 40%. WBC 25.7, hemoglobin 8.7, platelets 226. 05/18/2019. ABG: pH 7.46, PCO2 25.5, PO2 65.4, FiO2 21%. 05/17/2019. pH 7.47, PCO2 26.9, PO2 96.3, FiO2 35% WBC 8.9, hemoglobin 11.5, platelets 292 Sodium 130, potassium 4.3, bicarb 21, BUN 19, creatinine 1.61 Troponin 0.036, proBNP 12,900. 05/20/2019. CXR stable low-volume with emphysema and pulmonary fibrosis. 05/19/2019. VQ scan negative for PE. Continue BiPAP support, supplemental oxygen, empiric IV antibiotics, IV steroids. Low threshold for intubation. 2D echo suboptimal. Ejection fraction WNL. RVSP 88 mmHg. Pulmonology following. Recommendations noted. As per my conversation with Dr. Núñez patient has severe pulmonary fibrosis and severe pulmonary hypertension. Recommendation is MUSICAL INSTRUMENT SUPERVISOR VS hospice. (2) Severe pulmonary arterial systolic hypertension Is this a current diagnosis for this admission?: Yes Plan: Due to underlying severe interstitial lung disease/COPD. Severe pulmonary hypertension by echo. RVSP 83-88 mmHg. Per #1. Started on sildenafil 10 mg p.o. 3 times daily. Pulmonology notified. Agrees with the plan. Pulmonology consulted. Recommendations noted. As per my verbal conversation with Dr. Núñez patient has severe underlying lung disease and prognosis is not good. Recommendation is MUSICAL INSTRUMENT SUPERVISOR VS hospice. (3) Atrial fibrillation with RVR Is this a current diagnosis for this admission?: Yes Plan: Rate controlled. Not anticoagulated. New onset. Likely due to underlying severe lung disease. Cardizem drip. To be switched to p.o. cardizem or beta-blockers. Not a candidate for anticoagulation due to chronic GI bleed caused by AVM. Continue subcutaneous heparin DVT prophylaxis. Consult cardiology. (4) Gram-positive bacteremia Is this a current diagnosis for this admission?: Yes Plan: Continue empiric IV antibiotics. IV antibiotics day 2. IV Zosyn day 2. IV vancomycin day 2. Blood cultures +2/2 gram-positive cocci in clusters. Pending sensitivity. Follow-up culture. (5) Acute exacerbation of CHF (congestive heart failure) Qualifiers: Heart failure type: systolic Qualified Code(s): I50.23 - Acute on chronic systolic (congestive) heart failure Is this a current diagnosis for this admission?: Yes Plan: On admission patient had elevated proBNP and crackles throughout the lung. Initial impression was CHF exacerbation and patient was placed on volume restriction and IV Lasix 2D echo was ordered. However based on 2D echo result she has normal LVEF but severe pulmonary hypertension. Continue diuretics, cardiac diet, KIM and BB. (6) Hyponatremia Is this a current diagnosis for this admission?: Yes Plan: Resolved. Likely a combination of SIADH due to underlying lung cancer and delusional hyponatremia due to CHF exacerbation. As per #1. (7) COPD with exacerbation Is this a current diagnosis for this admission?: Yes Plan: As per #1 (8) ALTON (acute kidney injury) Is this a current diagnosis for this admission?: Yes Plan: Resolved. Creatinine back to baseline. Prerenal likely due to intravascular volume depletion due to CHF exacerbation. Cautious diuresis guided by volume status, avoid nephrotoxic meds. If no improvement will consult nephrology. (9) CAD (coronary artery disease) Is this a current diagnosis for this admission?: Yes Plan: Status post PCI x2 stent placement. Denies any active anginal symptoms. Continue DAPT, beta-blockers, statins. Follow-up 2D echo. Patient may benefit from KIM/ARB if kidney function im proves. (10) Hypertension Is this a current diagnosis for this admission?: Yes Plan: Normotensive. Continue beta-blockers, diuretics. Monitor volume status. Adjust meds as needed. 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 History of iron deficiency anemia, requiring iron transfusions in the past. Monitor H&H, supportive transfusions, restart home meds. (12) Diabetes type 2, controlled Is this a current diagnosis for this admission?: Yes Plan: Takes metformin as outpatient. Reports good control. Diabetic diet, pre-meal insulin, sliding scale insulin, long-acting insulin, Accu-Chek, hypoglycemia protocol. Adjust dosage as needed. Restart home meds upon discharge. Outpatient PCP follow-up. (13) Former smoker Is this a current diagnosis for this admission?: Yes Plan: Nicotine patch will be made available if patient desires. Counseled on abstaining from tobacco. (14) Lung cancer Is this a current diagnosis for this admission?: Yes Plan: As per Dr. Oneil oncologist note there is no sign of occult malignancy. Patient is scheduled to have a CT done in July as outpatient with oncologist. Patient reports history of recently diagnosed questionable lung cancer. As per patient she had a lymph node biopsy which was positive but as per radiologist it was insufficient sample. Patient follows up with Dr. Marquez as an outpatient and repeat CT is planned in July. Oncology following. Recommendations noted. Outpatient oncology follow-up. (15) Hyperlipidemia Is this a current diagnosis for this admission?: Yes Plan: Continue statins. LFTs WNL. Diet and lifestyle modification recommended. Outpatient PCP follow-up. (16) Hypothyroidism Is this a current diagnosis for this admission?: Yes Plan: Restart home meds. TSH WNL. (17) Iron deficiency anemia Qualifiers: Iron deficiency anemia type: chronic blood loss Qualified Code(s): D50.0 - Iron deficiency anemia secondary to blood loss (chronic) Is this a current diagnosis for this admission?: Yes Plan: As per #7. Monitor H&H. Continue ferrous sulfate. Supportive transfusions. (18) GERD (gastroesophageal reflux disease) Is this a current diagnosis for this admission?: Yes Plan: Restart home meds. (19) Anxiety and depression Is this a current diagnosis for this admission?: Yes Plan: Complaining of general anxiety and depression to being diagnosed with possible lung cancer recently. Denies any SI/HI. Start on BuSpar 10 mg p.o. twice daily Back to Prozac. Patient insulin up to mirtazapine. Patient becomes too drowsy. Which puts her at risk of fall. Will DC mirtazapine at this point. Outpatient PCP follow-up. (20) Hypocalcemia Is this a current diagnosis for this admission?: Yes Plan: Resolved. Calcium WNL. It was likely due to overdiuresis. PTH vitamin D WNL. Replace as needed. Calcium level tomorrow. (21) Hypokalemia Is this a current diagnosis for this admission?: Yes Plan: Potassium WNL. It was likely due to overdiuresis. No acute EKG changes. Continue supplemental potassium. BMP tomorrow. (22) Hypomagnesemia Is this a current diagnosis for this admission?: Yes Plan: Resolved. Magnesium WNL. It was likely due to overdiuresis. Continue supplemental magnesium. Magnesium level tomorrow.
[2019-05-22] MEDS: SILDENAFIL CITRATE 20 MG TABLET PO SCH ×2 (13:20→21:13)
[2019-05-22] MEDS ORDERED: DILTIAZEM HCL 60 MG TABLET PO SCH (15:45)
[2019-05-22] MEDS ORDERED: DILTIAZEM HCL 30 MG TABLET PO SCH ×2 (16:00→18:00)
--- NOTE | 2019-05-22 16:15 | ADVANCED CARE ---
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 Resuscitation Status: Do Not Intubate Discussion: After talking to Dr. Núñez networking technology instructor had a lengthy discussion with patient and her daughter who is at the bedside and updated them about her underlying medical conditions she has a severe pulmonary hypertension, point fibrosis, COPD, diabetes, chronic anemia, pretension, new onset A. fib and her prognosis and the futility of any invasive interventions. Patient and daughter decided for CODE STATUS to be transitioned to DNR/DNR at this point. Care Planning Goals: Patient will be transitioned to DNR/DNI. Patient has a designated Ita Obregon as a medical decision maker in case she cannot make her own medical decisions. Document(s) Completed: CODE STATUS changed to DNR/DNI. Time Spent: 30
[2019-05-22] MEDS: DILTIAZEM HCL 30 MG TABLET PO SCH ×2 (16:16→21:14)
[2019-05-22] MEDS: FLUTICASONE NASAL SPRAY 50 MCG/SPRY 120 SPRAY/16 GM NASL SCH (18:02)
[2019-05-22] MEDS: ATORVASTATIN CALCIUM 40 MG TABLET PO SCH (21:14)
[2019-05-22] MEDS: TEMAZEPAM 15 MG CAPSULE PO SCH (21:15)
[2019-05-22] MEDS: VANCOMYCIN HCL 750 MG in DEXTROSE 5%-WATER 250 ML IV SCH (21:19)
[2019-05-23] MEDS: DILTIAZEM HCL 30 MG TABLET PO SCH ×2 (04:23→09:14)
[2019-05-23] MEDS: SILDENAFIL CITRATE 20 MG TABLET PO SCH ×3 (05:29→21:17)
[2019-05-23] MEDS: LEVOTHYROXINE SODIUM 0.05 MG TABLET PO SCH (05:29)
[2019-05-23] MEDS: METHYLPREDNISOLONE INJ 40 MG/1 ML SDV IV SCH (05:29)
[2019-05-23 07:10] LABS: ALANINE AMINOTRANSFERASE 15 U/L (9-52); ALBUMIN 2.8 g/dL (3.5-5.0); ALKALINE PHOSPHATASE 48 U/L (38-126); ANION GAP 9 (5-19); ASPARTATE AMINO TRANSFERASE 31 U/L (14-36); BILIRUBIN,DIRECT 0.3 mg/dL (0.0-0.4); BILIRUBIN,TOTAL 0.4 mg/dL (0.2-1.3); BLOOD UREA NITROGEN 30 mg/dL (7-20); CALCIUM 8.6 mg/dL (8.4-10.2); CARBON DIOXIDE 25 mmol/L (22-30); CHLORIDE 105 mmol/L (98-107); GLUCOSE 136 mg/dL (75-110); POTASSIUM 3.3 mmol/L (3.6-5.0); TOTAL PROTEIN 5.8 g/dL (6.3-8.2)
[2019-05-23] MEDS: IPRATROPIUM BROMIDE 0.02% NEB 0.5 MG/2.5 ML AMPUL NEB SCH ×3 (08:33→20:22)
[2019-05-23] MEDS: LEVALBUTEROL HCL NEB 1.25 MG/3 ML AMPUL NEB SCH ×3 (08:33→20:23)
[2019-05-23] MEDS: INSULIN LISPRO 100 UNIT/ML 3 ML VIAL SUBCUT SCH ×4 (09:05→21:22)
[2019-05-23] MEDS: METOPROLOL TARTRATE 25 MG TABLET PO SCH ×2 (09:12→21:17)
[2019-05-23] MEDS: FAMOTIDINE INJ/PF 20 MG/2 ML SDV IV SCH (09:14)
[2019-05-23] MEDS: GABAPENTIN 100 MG CAPSULE PO SCH (09:14)
[2019-05-23] MEDS: TIOTROPIUM BROMIDE DPI 5 CAP/KIT (18 MCG/CAP) IH SCH (09:14)
[2019-05-23] MEDS: ASPIRIN 81 MG TABLET, ENT COATED PO SCH (09:15)
[2019-05-23] MEDS: CLOPIDOGREL BISULFATE 75 MG TABLET PO SCH (09:15)
[2019-05-23] MEDS: BUSPIRONE HCL 10 MG TABLET PO SCH ×2 (09:15→21:17)
[2019-05-23] MEDS: FLUTICASONE/VILANTEROL 100-25 MCG/DOSE IH SCH (09:16)
[2019-05-23] MEDS: MAGNESIUM OXIDE 400 MG TABLET PO SCH ×2 (09:16→17:33)
[2019-05-23] MEDS: FLUTICASONE NASAL SPRAY 50 MCG/SPRY 120 SPRAY/16 GM NASL SCH ×2 (09:16→17:33)
[2019-05-23] MEDS: FERROUS SULFATE 325 MG TABLET PO SCH (09:16)
[2019-05-23] MEDS: CEFEPIME 1 GM/D5W RTU 1 GM/50 ML RTUPB IV SCH (09:17)
[2019-05-23] MEDS: ENOXAPARIN SODIUM INJ 30 MG/0.3 ML DISP.SYRIN SUBCUT SCH (09:17)
[2019-05-23] MEDS: INSULIN GLARGINE,HUM.REC.ANLOG 1,000 UNIT/10 ML VIAL SUBCUT SCH (09:18)
[2019-05-23] MEDS: DOCUSATE SODIUM 100 MG CAPSULE PO SCH ×2 (09:24→17:33)
[2019-05-23 09:57] LABS: HEMATOCRIT 22.7 % (36.0-47.0); MEAN CORPUSCULAR VOLUME 91 fl (80-97); PLATELET COUNT 226 10^3/uL (150-450); RED CELL DISTRIBUTION WIDTH 16.7 % (11.5-14.0); WHITE BLOOD COUNT 13.1 10^3/uL (4.0-10.5)
[2019-05-23 10:11] LABS: HEMOGLOBIN 7.5 g/dL (12.0-15.5)
[2019-05-23 10:22] LABS: ABSOLUTE LYMPHOCYTES# (MANUAL) 0.1 10^3/uL (0.5-4.7); ABSOLUTE MONOCYTES # (MANUAL) 0.3 10^3/uL (0.1-1.4); BASOPHILS % (MANUAL) 0 % (0-2); EOSINOPHILS % (MANUAL) 0 % (0-6); LYMPHOCYTES % (MANUAL) 1 % (13-45); MONOCYTES % (MANUAL) 2 % (3-13); SEGMENTED NEUTROPHILS % (MAN) 97 % (42-78); TOTAL CELLS COUNTED 100
[2019-05-23 10:23] LABS: ALANINE AMINOTRANSFERASE 24 U/L (9-52); ALBUMIN 3.1 g/dL (3.5-5.0); ALKALINE PHOSPHATASE 55 U/L (38-126); ANION GAP 11 (5-19); ASPARTATE AMINO TRANSFERASE 34 U/L (14-36); BILIRUBIN,DIRECT 0.3 mg/dL (0.0-0.4); BILIRUBIN,TOTAL 0.5 mg/dL (0.2-1.3); BLOOD UREA NITROGEN 30 mg/dL (7-20); CALCIUM 8.7 mg/dL (8.4-10.2); CARBON DIOXIDE 24 mmol/L (22-30); CHLORIDE 104 mmol/L (98-107); GLUCOSE 187 mg/dL (75-110); POTASSIUM 3.3 mmol/L (3.6-5.0); TOTAL PROTEIN 6.2 g/dL (6.3-8.2)
[2019-05-23 10:24] LABS: ANISOCYTOSIS 1+; BURR CELLS 1+; HYPERSEGMENTED NEUTROPHILS PRESENT; OVALOCYTES SLIGHT; PLATELET COMMENT ADEQUATE; POIKILOCYTOSIS 1+; POLYCHROMASIA SLIGHT; SCHISTOCYTES SLIGHT
[2019-05-23] MEDS ORDERED: POTASSIUM CHLORIDE 10 MEQ CAPSULE.ER PO ONE ×2 (10:57→15:30)
[2019-05-23] MEDS ORDERED: LEVOFLOXACIN 500 MG TABLET PO SCH (12:15)
--- NOTE | 2019-05-23 12:28 | PDOC PROGRESS REPORT ---
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 Denies any recent hospitalization, denies any recent travel, reports medication adherence, denies any smoking, denies any recent upper/lower respiratory infections. Patient endorses drinking about 8 bottles of 500 cc of water every 24 hours on top of daily coffee intake. Worsening dyspnea on exertion, reporting home SPO2 of 50s with minimal exertion. Denies any fever, chest pain, vomiting, abdominal pain, diarrhea, constipation, any urinary symptoms. In ED she was found to be hypoxic, with low sodium and elevated creatinine and elevated BNP. Patient was started on BiPAP with IV steroids and hospital was consulted for admission. 05/18/2019. No acute events overnight. Patient was found to have multiple laboratory abnormalities in the morning labs, was started on electrolyte protocol. Patient is stating that she is feeling generalized weakness otherwise no shortness of breath has improved. Patient is also complaining of being very anxious because she is in the hospital and the fact that she has been diagnosed with cancer recently. Denies any fever, chills, nausea, vomiting, diarrhea, constipation or any urinary symptoms. 05/19/2019. No acute events overnight. Patient could not sleep overnight stating that could have been due to steroids that she is receiving. Denies any pain. Feels more energized since admission. Was able to walk to the restroom without getting too tired. Is able to walk in full sentences. Denies any fever, chills, nausea, vomiting. Complaining of constipation. 05/20/2019. No acute events overnight. Patient had a good night sleep. In the morning patient seems to be excellent sleepy and unfortunately still dependent on 5 L of oxygen. Complaining of weakness, denies any fever, chills, nausea, vomiting. Had a bowel movement. 05/21/2019. Overnight patient has been dependent on BiPAP, and very hypoxic, with respiratory alkalosis, and tachypneic. Yesterday evening there was noted that she has leukocytosis and a blood culture was drawn which came back positive for gram-positive cocci in clusters, she was started on vancomycin and Zosyn overnight. Also noted to be on A. fib RVR and was started on Cardizem drip. SBP 314447, T-max 98.6, pulse 941 10, RR 3028, SPO2 90-97% FiO2 42%, BiPAP. ABG: pH 7.55, PCO2 31.9, PO2 64.2, FiO2 40%. WBC 25.7, hemoglobin 8.7, platelets 226. 05/22/2019. No acute events overnight. Has been wearing BiPAP overnight. Was to transition to nasal cannula saturating 88-92 on 4 L. Does not seem to be in me apparent distress. Patient is alert oriented, cooperative with physical examination. Denies any fever, chills, nausea, vomiting, diarrhea, constipation or any urinary symptoms. P.o. tolerant. 05/23/2019. No acute events overnight. Did not have to use BiPAP overnight. Still dependent on NC 4 to 5 L, SPO2 88-93, alert oriented, in no apparent distress, denies any fever, chills, nausea, vomiting or any urinary symptoms. Blood cultures growing MSSA, will switch to p.o. antibiotics. Possible DC home tomorrow. Reason For Visit: ACUTE CHF EXACERBATION, COPD EXACERBATION Physical Exam Vital Signs: Temp Pulse Resp BP Pulse Ox 97.5 F 87 15 112/64 99 05/23/19 07:50 05/23/19 08:33 05/23/19 08:33 05/23/19 07:50 05/23/19 08:33 Intake & Output 05/22/19 05/23/19 05/24/19 06:59 06:59 06:59 Intake Total 864 2407 Output Total 850 825 Balance 14 1582 Weight 53 kg 55.1 kg General appearance: PRESENT: no acute distress, mild distress, thin, well- nourished Head exam: PRESENT: atraumatic, normocephalic Eye exam: PRESENT: conjunctiva pink, EOMI, PERRLA. ABSENT: scleral icterus Ear exam: PRESENT: normal external ear exam Mouth exam: PRESENT: moist, tongue midline Neck exam: ABSENT: carotid bruit, JVD, lymphadenopathy, thyromegaly Respiratory exam: PRESENT: crackles - Diffuse. ABSENT: rales, rhonchi, wheezes Cardiovascular exam: PRESENT: RRR. ABSENT: diastolic murmur, rubs, systolic murmur Pulses: PRESENT: normal dorsalis pedis pul Vascular exam: PRESENT: normal capillary refill GI/Abdominal exam: PRESENT: normal bowel sounds, soft. ABSENT: distended, guarding, mass, organolmegaly, rebound, tenderness Rectal exam: PRESENT: deferred Extremities exam: PRESENT: full ROM. ABSENT: calf tenderness, clubbing, pedal edema Neurological exam: PRESENT: alert, awake, oriented to person, oriented to place, oriented to time, oriented to situation, CN II-XII grossly intact. ABSENT: motor sensory deficit Psychiatric exam: PRESENT: appropriate affect, normal mood. ABSENT: homicidal ideation, suicidal ideation Skin exam: PRESENT: dry, intact, warm. ABSENT: cyanosis, rash Results Laboratory Results: 05/23/19 09:35 05/23/19 09:35 05/23/19 05/23/19 05/23/19 06:30 09:35 09:35 WBC 13.1 H RBC 2.50 L Hgb 7.5 L Hct 22.7 L MCV 91 MCH 30.0 MCHC 33.0 RDW 16.7 H Plt Count 226 Seg Neutrophils % Not Reportable Lymphocytes % Not Reportable Monocytes % Not Reportable Eosinophils % Not Reportable Basophils % Not Reportable Absolute Neutrophils Not Reportable Absolute Lymphocytes Not Reportable Absolute Monocytes Not Reportable Absolute Eosinophils Not Reportable Absolute Basophils Not Reportable Sodium 139.4 138.6 Potassium 3.3 L 3.3 L Chloride 105 104 Carbon Dioxide 25 24 Anion Gap 9 11 BUN 30 H 30 H Creatinine 0.82 0.90 Est GFR ( Amer) > 60 > 60 Est GFR (Non-Af Amer) > 60 > 60 Glucose 136 H 187 H Calcium 8.6 8.7 Magnesium 2.4 H Total Bilirubin 0.4 0.5 AST 31 34 ALT 15 24 Alkaline Phosphatase 48 55 Total Protein 5.8 L 6.2 L Albumin 2.8 L 3.1 L 05/21/19 03:15 Catheterized Urine Urine Culture - Final Staphylococcus Aureus 05/20/19 19:13 Blood Blood Culture - Final Staphylococcus Aureus 05/20/19 19:00 Blood Blood Culture - Final Staphylococcus Aureus 05/17/19 14:57 Blood Blood Culture - Final NO GROWTH IN 5 DAYS 05/17/19 13:30 Blood Blood Culture - Final NO GROWTH IN 5 DAYS 05/17/19 05/17/19 05/17/19 12:05 12:05 12:05 Creatine Kinase 184 H CK-MB (CK-2) 1.28 Troponin I 0.036 NT-Pro-B Natriuret Pep 56679 H 05/17/19 05/17/19 05/18/19 21:30 21:30 03:22 Creatine Kinase 161 H 183 H CK-MB (CK-2) 1.08 Troponin I 0.030 NT-Pro-B Natriuret Pep 05/18/19 05/18/19 05/18/19 03:22 09:39 09:39 Creatine Kinase 166 H CK-MB (CK-2) 1.42 1.68 Troponin I 0.015 0.020 NT-Pro-B Natriuret Pep 05/20/19 16:51 Creatine Kinase CK-MB (CK-2) Troponin I 0.021 NT-Pro-B Natriuret Pep Impressions: Lung Scan-VQ NM 05/17/19 00:00 IMPRESSION: No evidence of pulmonary embolism. Chest X-Ray 05/20/19 00:00 IMPRESSION: Stable low volume AP portable radiograph with emphysema and pulmonary fibrosis. No acute airspace opacity. Assessment and Plan - Diagnosis (1) Acute respiratory failure with hypoxia Is this a current diagnosis for this admission?: Yes Plan: Mild improvement. Was able to stay on supplemental oxygen overnight. SPO2 maintaining 88-92 on 4 to 5 L. Multifactorial. Due to combination of underlying severe COPD, severe pulmonary hypertension interstitial lung disease. 05/22/2019. SBP 1001 23, T-max 97.4, pulse 80s, RR 1517, SPO2 8892 4 L NC. WBC 25.7, hemoglobin 8.7, platelets 226 05/21/2019. SBP 464333, T-max 98.6, pulse 941 10, RR 3028 SPO2 90-97% FiO2 42%, BiPAP. ABG: pH 7.55, PCO2 31.9, PO2 64.2, FiO2 40%. WBC 25.7, hemoglobin 8.7, platelets 226. 05/18/2019. ABG: pH 7.46, PCO2 25.5, PO2 65.4, FiO2 21%. 05/17/2019. pH 7.47, PCO2 26.9, PO2 96.3, FiO2 35% WBC 8.9, hemoglobin 11.5, platelets 292 Sodium 130, potassium 4.3, bicarb 21, BUN 19, creatinine 1.61 Troponin 0.036, proBNP 12,900. 05/20/2019. CXR stable low-volume with emphysema and pulmonary fibrosis. 05/19/2019. VQ scan negative for PE. DC IV steroids. Received 7 days of IV steroids. Continue PRN BiPAP, supplemental oxygen, antibiotics. DC steroids. Low threshold for intubation. 2D echo suboptimal. Ejection fraction WNL. RVSP 88 mmHg. Pulmonology following. Recommendations noted. As per my conversation with Dr. Núñez patient has severe pulmonary fibrosis and severe pulmonary hypertension. Recommendation is APERTURE MASK ETCHER VS hospice. (2) Gram-positive bacteremia Is this a current diagnosis for this admission?: Yes Plan: Likely source urine. Urine culture growing MSSA. Blood culture 2/2 growing MSSA. Antibiotics day 4. Clindamycin p.o. day 1. Received 3 days of IV antibiotics. Received 3 days of Zosyn. Received 3 days of vancomycin. Repeat blood culture. Continue clindamycin. (3) Severe pulmonary arterial systolic hypertension Is this a current diagnosis for this admission?: Yes Plan: Mild improvement of respiratory symptoms. Did not need BiPAP overnight. Due to underlying severe interstitial lung disease/COPD. Severe pulmonary hypertension by echo. RVSP 83-88 mmHg. Per #1. Increase sildenafil 20 mg p.o. 3 times daily. Sildenafil 10 mg p.o. 3 times daily was started on 05/22/2019. Pulmonology notified. Agrees with the plan. Pulmonology consulted. Recommendations noted. As per my verbal conversation with Dr. Núñez patient has severe underlying lung disease and prognosis is not good. Recommendation is APERTURE MASK ETCHER VS hospice. (4) Atrial fibrillation with RVR Is this a current diagnosis for this admission?: Yes Plan: Rate controlled. Not anticoagulated. New onset. Likely due to underlying severe lung disease. Cardizem gadiel DC'd on 05/22/2019. Transition to p.o. short acting Cardizem. Continue Cardizem p.o. CD daily and p.o. beta-blockers. Monitor vitals. Not a candidate for anticoagulation due to chronic GI bleed caused by AVM. Continue subcutaneous heparin DVT prophylaxis. (5) Acute exacerbation of CHF (congestive heart failure) Qualifiers: Heart failure type: systolic Qualified Code(s): I50.23 - Acute on chronic systolic (congestive) heart failure Is this a current diagnosis for this admission?: Yes Plan: Euvolemic. On admission patient had elevated proBNP and crackles throughout the lung. Initial impression was CHF exacerbation and patient was placed on volume restriction and IV Lasix 2D echo was ordered. However based on 2D echo result she has normal LVEF but severe pulmonary hypertension. Continue diuretics, cardiac diet, KIM and BB. (6) Hyponatremia Is this a current diagnosis for this admission?: Yes Plan: Resolved. Likely a combination of SIADH due to underlying lung cancer and delusional hyponatremia due to CHF exacerbation. As per #1. (7) COPD with exacerbation Is this a current diagnosis for this admission?: Yes Plan: As per #1 (8) ALTON (acute kidney injury) Is this a current diagnosis for this admission?: Yes Plan: Resolved. Creatinine back to baseline. Prerenal likely due to intravascular volume depletion due to CHF exacerbation. Cautious diuresis guided by volume status, avoid nephrotoxic meds. If no improvement will consult nephrology. (9) CAD (coronary artery disease) Is this a current diagnosis for this admission?: Yes Plan: Status post PCI x2 stent placement. Denies any active anginal symptoms. Continue DAPT, beta-blockers, statins. Follow-up 2D echo. Patient may benefit from KIM/ARB if kidney function improves. (10) Hypertension Is this a current diagnosis for this admission?: Yes Plan: Normotensive. Continue beta-blockers, diuretics. Monitor volume status. Adjust meds as needed. 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 History of iron deficiency anemia, requiring iron transfusions in the past. Monitor H&H, supportive transfusions, restart home meds. (12) Diabetes type 2, controlled Is this a current diagnosis for this admission?: Yes Plan: Takes metformin as outpatient. Reports good control. Diabetic diet, pre-meal insulin, sliding scale insulin, long-acting insulin, Accu-Chek, hypoglycemia protocol. Adjust dosage as needed. Restart home meds upon discharge. Outpatient PCP follow-up. (13) Former smoker Is this a current diagnosis for this admission?: Yes Plan: Nicotine patch will be made available if patient desires. Counseled on abstaining from tobacco. (14) Lung cancer Is this a current diagnosis for this admission?: Yes Plan: As per Dr. Oneil oncologist note there is no sign of occult malignancy. Patient is scheduled to have a CT done in July as outpatient with oncologist. Patient reports history of recently diagnosed questionable lung cancer. As per patient she had a lymph node biopsy which was positive but as per radiologist it was insufficient sample. Patient follows up with Dr. Marquez as an outpatient and repeat CT is planned in July. Oncology following. Recommendations noted. Outpatient oncology follow-up. (15) Hyperlipidemia Is this a current diagnosis for this admission?: Yes Plan: Continue statins. LFTs WNL. Diet and lifestyle modification recommended. Outpatient PCP follow-up. (16) Hypothyroidism Is this a current diagnosis for this admission?: Yes Plan: Restart home meds. TSH WNL. (17) Iron deficiency anemia Qualifiers: Iron deficiency anemia type: chronic blood loss Qualified Code(s): D50.0 - Iron deficiency anemia secondary to blood loss (chronic) Is this a current diagnosis for this admission?: Yes Plan: As per #7. Monitor H&H. Continue ferrous sulfate. Supportive transfusions. (18) GERD (gastroesophageal reflux disease) Is this a current diagnosis for this admission?: Yes Plan: Restart home meds. (19) Anxiety and depression Is this a current diagnosis for this admission?: Yes Plan: Complaining of general anxiety and depression to being diagnosed with possible lung cancer recently. Denies any SI/HI. Start on BuSpar 10 mg p.o. twice daily and Prozac daily. Back to Prozac. Patient very sensitive to mirtazapine. Patient becomes too drowsy. Which puts her at risk of fall. Will DC mirtazapine at this point. Outpatient PCP follow-up. (20) Hypocalcemia Is this a current diagnosis for this admission?: Yes Plan: Resolved. Calcium WNL. It was likely due to overdiuresis. PTH vitamin D WNL. Replace as needed. Calcium level tomorrow. (21) Hypokalemia Is this a current diagnosis for this admission?: Yes Plan: Potassium WNL. It was likely due to overdiuresis. No acute EKG changes. Continue supplemental potassium. BMP tomorrow. (22) Hypomagnesemia Is this a current diagnosis for this admission?: Yes Plan: Resolved. Magnesium WNL. It was likely due to overdiuresis. Continue supplemental magnesium. Magnesium level tomorrow.
[2019-05-23] MEDS ORDERED: ACETYLCYSTEINE 10% NEB 400 MG/4 ML VIAL NEB SCH (14:00)
[2019-05-23 14:30] LABS: ARTERIAL BLOOD BASE EXCESS -0.2 mmol/L; ARTERIAL BLOOD H2CO3 0.87 mmol/L (1.05-1.35); ARTERIAL BLOOD HCO3 22.6 mmol/L (20-24); ARTERIAL BLOOD O2 SATURATION 92.9 % (94-98); ARTERIAL BLOOD PH 7.51 (7.35-7.45); ARTERIAL BLOOD PO2 57.8 mmHg (80-100); ARTERIAL BLOOD TOTAL CO2 23.5 mmol/L (21-25)
[2019-05-23 14:43] LABS: ARTERIAL BLOOD FIO2 3.5L
[2019-05-23] MEDS: DILTIAZEM HCL 240 MG CAPSULE.CR PO SCH (14:55)
[2019-05-23] MEDS: CLINDAMYCIN HCL 150 MG CAPSULE PO SCH ×2 (14:55→21:17)
[2019-05-23] MEDS ORDERED: GUAIFENESIN/D-METHORPHAN (200-20 MG) SYRUP 10 ML PO ONE (15:00)
--- NOTE | 2019-05-23 15:56 | Progress Note ---
Provider Note Provider Note: ID Telephone consultation - Brief Note Asked by Pharmacy to review patient's chart with regard to antibiotic selection. Pt not seen or examined. More extensive chart review has not been performed at this point, and what follows is general advice regarding the lab findings and approach to management of Staph aureus bacteremia. Will addend as appropriate. When pt was admitted on 05/17 blood cultures were negative. During her hospital course, she was noted to have leukocytosis and increase in temperature to 100.3 F on 05/20, at which time blood cultures were drawn. She was empirically on vancomycin and cefepime while awaiting the results of the 05/20 blood cultures, which returned showing growth of MSSA in both sets. Vancomycin and cefepime were discontinued today 05/23 and PO clindamycin started today in anticipation of discharge home. Repeat blood cultures are ordered today 05/23. Impression/Recommendations Given the potential risk for complications, treatment of MSSA bacteremia typically involves prolonged courses (2-4 weeks) of IV cefazolin or IV nafcillin. There is limited data regarding use of oral antibiotics for Staph aureus bacteremia and pending further studies, use of PO clindamycin or PO Bactrim are not recommended. Of course, the patient's individual circumstances need to be taken into account, and occasionally deviation from standard of care treatment is required, but of there is no contraindication, I would favor treating the patient with IV cefazolin 2g q8h instead of clindamycin PO. If the patient has hospital acquired focus of infection that has undergone source control (e.g. infected peripheral IV line that was removed), has rapid clearance of the bacteremia, has no evidence of endocarditis, and has no deep- seated or metastatic foci infection, she may be a candidate for 2 weeks of treatment from the date of negative blood cultures. Carlos Shirley MD [facility] Infectious Diseases pager [phone]
[2019-05-23] MEDS: ATORVASTATIN CALCIUM 40 MG TABLET PO SCH (21:17)
[2019-05-23] MEDS: TEMAZEPAM 15 MG CAPSULE PO SCH (21:17)
[2019-05-24] MEDS: SILDENAFIL CITRATE 20 MG TABLET PO SCH ×3 (05:46→22:11)
[2019-05-24] MEDS: CLINDAMYCIN HCL 150 MG CAPSULE PO SCH (05:46)
[2019-05-24] MEDS: LEVOTHYROXINE SODIUM 0.05 MG TABLET PO SCH (05:47)
[2019-05-24 06:35] LABS: ABSOLUTE LYMPHOCYTES (AUTO) 0.8 10^3/uL (0.5-4.7); ABSOLUTE MONOCYTES (AUTO) 0.9 10^3/uL (0.1-1.4); ABSOLUTE NEUT (AUTO) 10.1 10^3/uL (1.7-8.2); BASOPHILS % (AUTO) 0.1 % (0-2); HEMATOCRIT 19.2 % (36.0-47.0); LYMPHOCYTES % (AUTO) 6.8 % (13-45); MEAN CORPUSCULAR HEMOGLOBIN 30.4 pg (27.0-33.4); MEAN CORPUSCULAR HGB CONC 33.7 g/dL (32.0-36.0); MEAN CORPUSCULAR VOLUME 90 fl (80-97); MONOCYTES % (AUTO) 7.2 % (3-13); PLATELET COUNT 181 10^3/uL (150-450); RED BLOOD COUNT 2.13 10^6/uL (3.72-5.28); RED CELL DISTRIBUTION WIDTH 16.7 % (11.5-14.0); SEGMENTED NEUTROPHILS % (AUTO) 85.9 % (42-78); TOTAL CELLS COUNTED % (AUTO) 100 %; WHITE BLOOD COUNT 11.8 10^3/uL (4.0-10.5)
[2019-05-24 06:41] LABS: HEMOGLOBIN 6.5 g/dL (12.0-15.5)
[2019-05-24 06:51] LABS: ALANINE AMINOTRANSFERASE 20 U/L (9-52); ALBUMIN 2.9 g/dL (3.5-5.0); ALKALINE PHOSPHATASE 48 U/L (38-126); ANION GAP 7 (5-19); ASPARTATE AMINO TRANSFERASE 33 U/L (14-36); BILIRUBIN,DIRECT 0.3 mg/dL (0.0-0.4); BILIRUBIN,TOTAL 0.5 mg/dL (0.2-1.3); BLOOD UREA NITROGEN 33 mg/dL (7-20); CALCIUM 8.8 mg/dL (8.4-10.2); CARBON DIOXIDE 26 mmol/L (22-30); CHLORIDE 105 mmol/L (98-107); GLUCOSE 133 mg/dL (75-110); TOTAL PROTEIN 5.8 g/dL (6.3-8.2)
[2019-05-24 07:25] LABS: POTASSIUM 4.3 mmol/L (3.6-5.0)
[2019-05-24] MEDS: INSULIN LISPRO 100 UNIT/ML 3 ML VIAL SUBCUT SCH ×4 (08:16→22:11)
[2019-05-24] MEDS: LEVALBUTEROL HCL NEB 1.25 MG/3 ML AMPUL NEB SCH ×3 (08:37→20:39)
[2019-05-24] MEDS: IPRATROPIUM BROMIDE 0.02% NEB 0.5 MG/2.5 ML AMPUL NEB SCH ×3 (08:37→20:39)
[2019-05-24] MEDS: GUAIFENESIN/D-METHORPHAN (200-20 MG) SYRUP 10 ML PO PRN ×2 (09:29→15:37)
[2019-05-24] MEDS: FLUTICASONE NASAL SPRAY 50 MCG/SPRY 120 SPRAY/16 GM NASL SCH ×2 (09:29→19:21)
[2019-05-24] MEDS: MAGNESIUM OXIDE 400 MG TABLET PO SCH ×2 (09:30→19:21)
[2019-05-24] MEDS: FERROUS SULFATE 325 MG TABLET PO SCH (09:30)
[2019-05-24] MEDS: FAMOTIDINE INJ/PF 20 MG/2 ML SDV IV SCH (09:30)
[2019-05-24] MEDS: BUSPIRONE HCL 10 MG TABLET PO SCH ×2 (09:30→22:10)
[2019-05-24] MEDS: ASPIRIN 81 MG TABLET, ENT COATED PO SCH (09:30)
[2019-05-24] MEDS: DOCUSATE SODIUM 100 MG CAPSULE PO SCH ×2 (09:30→19:20)
[2019-05-24] MEDS: GABAPENTIN 100 MG CAPSULE PO SCH (09:31)
[2019-05-24] MEDS: CLOPIDOGREL BISULFATE 75 MG TABLET PO SCH (09:31)
[2019-05-24] MEDS: METOPROLOL TARTRATE 25 MG TABLET PO SCH ×2 (09:31→22:11)
[2019-05-24] MEDS: FLUTICASONE/VILANTEROL 100-25 MCG/DOSE IH SCH (09:32)
[2019-05-24] MEDS: ENOXAPARIN SODIUM INJ 30 MG/0.3 ML DISP.SYRIN SUBCUT SCH (09:33)
[2019-05-24] MEDS: INSULIN GLARGINE,HUM.REC.ANLOG 1,000 UNIT/10 ML VIAL SUBCUT SCH (09:34)
[2019-05-24] MEDS ORDERED: FERRIC CARBOXYMALTOSE INJ 750 MG/15 ML VIAL IV SCH (09:45)
--- NOTE | 2019-05-24 09:50 | PDOC PROGRESS REPORT ---
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 Denies any recent hospitalization, denies any recent travel, reports medication adherence, denies any smoking, denies any recent upper/lower respiratory infections. Patient endorses drinking about 8 bottles of 500 cc of water every 24 hours on top of daily coffee intake. Worsening dyspnea on exertion, reporting home SPO2 of 50s with minimal exertion. Denies any fever, chest pain, vomiting, abdominal pain, diarrhea, constipation, any urinary symptoms. In ED she was found to be hypoxic, with low sodium and elevated creatinine and elevated BNP. Patient was started on BiPAP with IV steroids and hospital was consulted for admission. 05/18/2019. No acute events overnight. Patient was found to have multiple laboratory abnormalities in the morning labs, was started on electrolyte protocol. Patient is stating that she is feeling generalized weakness otherwise no shortness of breath has improved. Patient is also complaining of being very anxious because she is in the hospital and the fact that she has been diagnosed with cancer recently. Denies any fever, chills, nausea, vomiting, diarrhea, constipation or any urinary symptoms. 05/19/2019. No acute events overnight. Patient could not sleep overnight stating that could have been due to steroids that she is receiving. Denies any pain. Feels more energized since admission. Was able to walk to the restroom without getting too tired. Is able to walk in full sentences. Denies any fever, chills, nausea, vomiting. Complaining of constipation. 05/20/2019. No acute events overnight. Patient had a good night sleep. In the morning patient seems to be excellent sleepy and unfortunately still dependent on 5 L of oxygen. Complaining of weakness, denies any fever, chills, nausea, vomiting. Had a bowel movement. 05/21/2019. Overnight patient has been dependent on BiPAP, and very hypoxic, with respiratory alkalosis, and tachypneic. Yesterday evening there was noted that she has leukocytosis and a blood culture was drawn which came back positive for gram-positive cocci in clusters, she was started on vancomycin and Zosyn overnight. Also noted to be on A. fib RVR and was started on Cardizem drip. SBP 064606, T-max 98.6, pulse 941 10, RR 3028, SPO2 90-97% FiO2 42%, BiPAP. ABG: pH 7.55, PCO2 31.9, PO2 64.2, FiO2 40%. WBC 25.7, hemoglobin 8.7, platelets 226. 05/22/2019. No acute events overnight. Has been wearing BiPAP overnight. Was to transition to nasal cannula saturating 88-92 on 4 L. Does not seem to be in me apparent distress. Patient is alert oriented, cooperative with physical examination. Denies any fever, chills, nausea, vomiting, diarrhea, constipation or any urinary symptoms. P.o. tolerant. 05/23/2019. No acute events overnight. Did not have to use BiPAP overnight. Still dependent on NC 4 to 5 L, SPO2 88-93, alert oriented, in no apparent distress, denies any fever, chills, nausea, vomiting or any urinary symptoms. Blood cultures growing MSSA, will switch to p.o. antibiotics. Possible DC home tomorrow. 05/24/2019. No acute events overnight. Patient did not use BiPAP overnight, still hypoxic and is dependent on 4-5 L nasal cannula SPO2 high 80s to low 90s. Patient was going to be DC'd home today however was found to have hemoglobin of 6.5 needs transfusion, also as per ID recommendation patient is to be sent home on IV antibiotics. Denies any fever, chills, nausea, diarrhea, constipation or any urinary symptoms. Reason For Visit: ACUTE CHF EXACERBATION, COPD EXACERBATION Physical Exam Vital Signs: Temp Pulse Resp BP Pulse Ox 97.5 F 105 H 18 102/62 83 L 05/24/19 04:12 05/24/19 08:37 05/24/19 08:37 05/24/19 04:12 05/24/19 08:37 Intake & Output 05/23/19 05/24/19 05/25/19 06:59 06:59 06:59 Intake Total 2407 2939 Output Total 825 300 Balance 1582 7149 Weight 55.1 kg 63.8 kg General appearance: PRESENT: no acute distress, well-developed, well-nourished Head exam: PRESENT: atraumatic, normocephalic Neck exam: ABSENT: carotid bruit, JVD, lymphadenopathy, thyromegaly Respiratory exam: PRESENT: crackles Cardiovascular exam: PRESENT: RRR. ABSENT: diastolic murmur, rubs, systolic murmur Pulses: PRESENT: normal dorsalis pedis pul Extremities exam: PRESENT: full ROM. ABSENT: calf tenderness, clubbing, pedal edema Neurological exam: PRESENT: alert, awake, oriented to person, oriented to place, oriented to time, oriented to situation, CN II-XII grossly intact. ABSENT: motor sensory deficit Results Laboratory Results: 05/24/19 06:03 05/24/19 06:03 05/23/19 05/23/19 05/23/19 09:35 09:35 14:05 WBC 13.1 H RBC 2.50 L Hgb 7.5 L Hct 22.7 L MCV 91 MCH 30.0 MCHC 33.0 RDW 16.7 H Plt Count 226 Seg Neutrophils % Not Reportable Lymphocytes % Not Reportable Monocytes % Not Reportable Eosinophils % Not Reportable Basophils % Not Reportable Absolute Neutrophils Not Reportable Absolute Lymphocytes Not Reportable Absolute Monocytes Not Reportable Absolute Eosinophils Not Reportable Absolute Basophils Not Reportable Carbonic Acid 0.87 L HCO3/H2CO3 Ratio 25:1 ABG pH 7.51 H ABG pCO2 29.0 L ABG pO2 57.8 L ABG HCO3 22.6 ABG O2 Saturation 92.9 L ABG Base Excess -0.2 FiO2 3.5L Sodium 138.6 Potassium 3.3 L Chloride 104 Carbon Dioxide 24 Anion Gap 11 BUN 30 H Creatinine 0.90 Est GFR ( Amer) > 60 Est GFR (Non-Af Amer) > 60 Glucose 187 H Calcium 8.7 Total Bilirubin 0.5 AST 34 ALT 24 Alkaline Phosphatase 55 Total Protein 6.2 L Albumin 3.1 L Blood Type Antibody Screen 05/24/19 05/24/19 05/24/19 06:03 06:03 08:42 WBC 11.8 H RBC 2.13 L Hgb 6.5 L Hct 19.2 L MCV 90 MCH 30.4 MCHC 33.7 RDW 16.7 H Plt Count 181 Seg Neutrophils % 85.9 H Lymphocytes % 6.8 L Monocytes % 7.2 Eosinophils % 0.0 Basophils % 0.1 Absolute Neutrophils 10.1 H Absolute Lymphocytes 0.8 Absolute Monocytes 0.9 Absolute Eosinophils 0.0 Absolute Basophils 0.0 Carbonic Acid HCO3/H2CO3 Ratio ABG pH ABG pCO2 ABG pO2 ABG HCO3 ABG O2 Saturation ABG Base Excess FiO2 Sodium 138.2 Potassium 4.3 D Chloride 105 Carbon Dioxide 26 Anion Gap 7 BUN 33 H Creatinine 0.82 Est GFR ( Amer) > 60 Est GFR (Non-Af Amer) > 60 Glucose 133 H Calcium 8.8 Total Bilirubin 0.5 AST 33 ALT 20 Alkaline Phosphatase 48 Total Protein 5.8 L Albumin 2.9 L Blood Type A POSITIVE Antibody Screen NEGATIVE 05/21/19 03:15 Catheterized Urine Urine Culture - Final Staphylococcus Aureus 05/20/19 19:13 Blood Blood Culture - Final Staphylococcus Aureus 05/20/19 19:00 Blood Blood Culture - Final Staphylococcus Aureus 05/17/19 05/17/19 05/17/19 12:05 12:05 12:05 Creatine Kinase 184 H CK-MB (CK-2) 1.28 Troponin I 0.036 NT-Pro-B Natriuret Pep 55369 H 05/17/19 05/17/19 05/18/19 21:30 21:30 03:22 Creatine Kinase 161 H 183 H CK-MB (CK-2) 1.08 Troponin I 0.030 NT-Pro-B Natriuret Pep 05/18/19 05/18/19 05/18/19 03:22 09:39 09:39 Creatine Kinase 166 H CK-MB (CK-2) 1.42 1.68 Troponin I 0.015 0.020 NT-Pro-B Natriuret Pep 05/20/19 16:51 Creatine Kinase CK-MB (CK-2) Troponin I 0.021 NT-Pro-B Natriuret Pep Impressions: Lung Scan-VQ NM 05/17/19 00:00 IMPRESSION: No evidence of pulmonary embolism. Chest X-Ray 05/20/19 00:00 IMPRESSION: Stable low volume AP portable radiograph with emphysema and pulmonary fibrosis. No acute airspace opacity. Assessment and Plan - Diagnosis (1) Acute respiratory failure with hypoxia Is this a current diagnosis for this admission?: Yes Plan: Mild improvement. Able to stay on supplemental oxygen overnight. SPO2 maintai rajendra 88-92 on 4 to 5 L. Multifactorial. Due to combination of underlying severe COPD, severe pulmonary hypertension interstitial lung disease. 05/22/2019. SBP 1001 23, T-max 97.4, pulse 80s, RR 1517, SPO2 8892 4 L NC. WBC 25.7, hemoglobin 8.7, platelets 226 05/21/2019. SBP 598598, T-max 98.6, pulse 941 10, RR 3028 SPO2 90-97% FiO2 42%, BiPAP. ABG: pH 7.55, PCO2 31.9, PO2 64.2, FiO2 40%. WBC 25.7, hemoglobin 8.7, platelets 226. 05/18/2019. ABG: pH 7.46, PCO2 25.5, PO2 65.4, FiO2 21%. 05/17/2019. pH 7.47, PCO2 26.9, PO2 96.3, FiO2 35% WBC 8.9, hemoglobin 11.5, platelets 292 Sodium 130, potassium 4.3, bicarb 21, BUN 19, creatinine 1.61 Troponin 0.036, proBNP 12,900. 05/20/2019. CXR stable low-volume with emphysema and pulmonary fibrosis. 05/19/2019. VQ scan negative for PE. DC IV steroids. Received 7 days of IV steroids. Continue PRN BiPAP, supplemental oxygen, antibiotics. DC steroids. 2D echo suboptimal. Ejection fraction WNL. RVSP 88 mmHg. Pulmonology following. Recommendations noted. As per my conversation with Dr. Núñez patient has severe pulmonary fibrosis and severe pulmonary hypertension. 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 Patient does not want to be transferred to rehab, however if she goes home she will need hospital bed requiring her head to be elevated more than 30 degrees most of the time due to underlying severe pulmonary hypertension, COPD and CHF. (2) Gram-positive bacteremia Is this a current diagnosis for this admission?: Yes Plan: Likely source urine. Urine culture growing MSSA. Blood culture 2/2 growing MSSA. As per ID recommendation patient is to be switched to IV ceftezole and for another 2 to 3 weeks from last negative blood culture. Antibiotics day 5. Cefazolin day 1 of 14. Day 1 day of p.o. clindamycin. Received 3 days of Zosyn. Received 3 days of vancomycin. 05/23/2019 blood culture no growth. Continue cefazolin for 14 days from last negative blood culture. (3) Severe pulmonary arterial systolic hypertension Is this a current diagnosis for this admission?: Yes Plan: Mild improvement of respiratory symptoms. Did not need BiPAP overnight. Due to underlying severe interstitial lung disease/COPD. Severe pulmonary hypertension by echo. RVSP 83-88 mmHg. Per #1. Increase sildenafil 20 mg p.o. 3 times daily. Sildenafil 10 mg p.o. 3 times daily was started on 05/22/2019. Pulmonology notified. Agrees with the plan. Pulmonology consulted. Recommendations noted. As per my verbal conversation with Dr. Núñez patient has severe underlying lung disease and prognosis is not good. 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 (4) Atrial fibrillation with RVR Is this a current diagnosis for this admission?: Yes Plan: Rate controlled. Not anticoagulated. New onset. Likely due to underlying severe lung disease. Cardizem drip DC'd on 05/22/2019. Transition to p.o. short acting Cardizem. Continue Cardizem p.o. CD daily and p.o. beta-blockers. Monitor vitals. Not a candidate for anticoagulation due to chronic GI bleed caused by AVM. Continue subcutaneous heparin DVT prophylaxis. (5) Acute exacerbation of CHF (congestive heart failure) Qualifiers: Heart failure type: systolic Qualified Code(s): I50.23 - Acute on chronic systolic (congestive) heart failure Is this a current diagnosis for this admission?: Yes Plan: Euvolemic. On admission patient had elevated proBNP and crackles throughout the lung. Initial impression was CHF exacerbation and patient was placed on volume restriction and IV Lasix 2D echo was ordered. However based on 2D echo result she has normal LVEF but severe pulmonary hypertension. Continue diuretics, cardiac diet, KIM and BB. (6) Hyponatremia Is this a current diagnosis for this admission?: Yes Plan: Resolved. Likely a combination of SIADH due to underlying lung cancer and delusional hyponatremia due to CHF exacerbation. As per #1. (7) COPD with exacerbation Is this a current diagnosis for this admission?: Yes Plan: As per #1 (8) ALTON (acute kidney injury) Is this a current diagnosis for this admission?: Yes Plan: Resolved. Creatinine back to baseline. Prerenal likely due to intravascular volume depletion due to CHF exacerbation. Cautious diuresis guided by volume status, avoid nephrotoxic meds. If no improvement will consult nephrology. (9) CAD (coronary artery disease) Is this a current diagnosis for this admission?: Yes Plan: Status post PCI x2 stent placement. Denies any active anginal symptoms. Continue DAPT, beta-blockers, statins. Follow-up 2D echo. Patient may benefit from KIM/ARB if kidney function improves. (10) Hypertension Is this a current diagnosis for this admission?: Yes Plan: Normotensive. Continue beta-blockers, diuretics. Monitor volume status. Adjust meds as needed. 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 History of iron deficiency anemia, requiring iron transfusions in the past. Monitor H&H, supportive transfusions, restart home meds. (12) Diabetes type 2, controlled Is this a current diagnosis for this admission?: Yes Plan: Takes metformin as outpatient. Reports good control. Diabetic diet, pre-meal insulin, sliding scale insulin, long-acting insulin, Accu-Chek, hypoglycemia protocol. Adjust dosage as needed. Restart home meds upon discharge. Outpatient PCP follow-up. (13) Former smoker Is this a current diagnosis for this admission?: Yes Plan: Nicotine patch will be made available if patient desires. Counseled on abstaining from tobacco. (14) Lung cancer Is this a current diagnosis for this admission?: Yes Plan: As per Dr. Oneil oncologist note there is no sign of occult malignancy. Patient is scheduled to have a CT done in July as outpatient with oncologist. Patient reports history of recently diagnosed questionable lung cancer. As per patient she had a lymph node biopsy which was positive but as per radiologist it was insufficient sample. Patient follows up with Dr. Marquez as an outpatient and repeat CT is planned in July. Oncology following. Recommendations noted. Outpatient oncology follow-up. (15) Hyperlipidemia Is this a current diagnosis for this admission?: Yes Plan: Continue statins. LFTs WNL. Diet and lifestyle modification recommended. Outpatient PCP follow-up. (16) Hypothyroidism Is this a current diagnosis for this admission?: Yes Plan: Restart home meds. TSH WNL. (17) Iron deficiency anemia Qualifiers: Iron deficiency anemia type: chronic blood loss Qualified Code(s): D50.0 - Iron deficiency anemia secondary to blood loss (chronic) Is this a current diagnosis for this admission?: Yes Plan: As per #7. Hgb 6.5 today. Status post 2 PRBC transfusion. Status post 2 PRBC transfusion 05/24/2019. Status post 1 dose of Injectafer transfusion 05/24/2019. Patient threshold for transfusion should be hemoglobin of 9 due to severe multiple underlying comorbidities. H&H tomorrow. (18) GERD (gastroesophageal reflux disease) Is this a current diagnosis for this admission?: Yes Plan: Restart home meds. (19) Anxiety and depression Is this a current diagnosis for this admission?: Yes Plan: Complaining of general anxiety and depression to being diagnosed with possible lung cancer recently. Denies any SI/HI. Start on BuSpar 10 mg p.o. twice daily and Prozac daily. Back to Prozac. Patient very sensitive to mirtazapine. Patient becomes too drowsy. Which puts her at risk of fall. Will DC mirtazapine at this point. Outpatient PCP follow-up. (20) Hypocalcemia Is this a current diagnosis for this admission?: Yes Plan: Resolved. Calcium WNL. It was likely due to overdiuresis. PTH vitamin D WNL. Replace as needed. Calcium level tomorrow. (21) Hypokalemia Is this a current diagnosis for this admission?: Yes Plan: Potassium WNL. It was likely due to overdiuresis. No acute EKG changes. Continue supplemental potassium. BMP tomorrow. (22) Hypomagnesemia Is this a current diagnosis for this admission?: Yes Plan: Resolved. Magnesium WNL. It was likely due to overdiuresis. Continue supplemental magnesium. Magnesium level tomorrow.
[2019-05-24] MEDS: DILTIAZEM HCL 240 MG CAPSULE.CR PO SCH (10:16)
[2019-05-24] MEDS ORDERED: FERRIC CARBOXYMALTOSE 750 MG in NORMAL SALINE 250 ML IV ONE (11:00)
[2019-05-24] MEDS ORDERED: NORMAL SALINE 10 ML SDV (AFTER EACH USE) IV PRN (12:00)
--- NOTE | 2019-05-24 12:00 | RADIOLOGY REPORT (SQ) ---
EXAM DESCRIPTION: PICC INSERTION; FLUORO/CV PLACEMENT; U/S GUIDE FOR VASCULAR ACCESS COMPLETED DATE/TIME: 05/24/2019 11:36 am REASON FOR STUDY: chronic abx use; CHRONIC ABX USE; IV ACCESS COMPARISON: 05/20/2019 FLUOROSCOPY TIME: 24 seconds 2 images saved to PACS. TECHNIQUE: Fluoroscopic and ultrasound guided PICC placement. LIMITATIONS: None. PROCEDURE: After written consent and assessment were obtained, the patient was brought into the fluo roscopy room and placed supine on the table. Ultrasound evaluation of potential access sites were per formed. After successfully identifying a patent left basilic vein, the left arm was prepped and drape d in a sterile fashion along with the ultrasound probe. The entry site was anesthetized with 1% lidoc cristofer. A 21 gauge 7 cm needle was advanced through the skin and into the basilic vein under live ultra sound guidance. An ultrasound image was saved to PACS confirming access site. A .018 guide wire was then inserted through the needle and into the venous system. The needle was then removed and an 11 b lade scalpel was used to make a 1cm skin incision. A 5 fr peel-away sheath was advanced over the wir e and into the venous system. A measurement was then made using the existing wire and live fluoroscop ic guidance. The wire was then removed and trimmed. The PICC was advanced through the peel-away sheat h and into the venous system. The peel-away sheath was removed and the catheter was adhered to the pa tients arm with a stat lock. The catheter was then aspirated and flushed and a sterile bandage was pl aced over the access site. A fluoroscopic spot image was saved to PACS confirming the catheter tip w ithin the superior vena cava. IMPRESSION: SUCCESSFUL PLACEMENT OF A 5 FR DUAL LUMEN 21 CM PICC IN THE LEFT BASILIC VEIN. COMMENT: Patient medication list reviewed: Yes- Quality ID# [id number]:Eligible professional attests to doc umenting in the medical record they obtained, updated, or reviewed the patient's current medications. . Quality ID 145: Final reports for procedures using fluoroscopy that document radiation exposure chris justin, or exposure time and number of fluorographic images (if radiation exposure indices are not avail able) Quality ID #76: The patient was prepped and draped using maximum sterile barrier technique including cap, mask, sterile gown, sterile gloves, a large sterile sheet, hand hygiene, and 2% Chlorhexidine fo r cutaneous antisepsis. When ultrasound is used, sterile ultrasound techniques are followed requiring sterile gel and sterile probes. TECHNICAL DOCUMENTATION: JOB ID: [id number] [employer]- All Rights Reserved rev-03/18 Reading location - IP/workstation name: [email or web address]
[2019-05-24] MEDS: TIOTROPIUM BROMIDE DPI 5 CAP/KIT (18 MCG/CAP) IH SCH (12:33)
[2019-05-24] MEDS ORDERED: CEFAZOLIN 2 GM/D5W RTU 2 GM/50 ML RTUPB IV SCH (14:00)
[2019-05-24] MEDS ORDERED: FUROSEMIDE INJ/PF 20 MG/2 ML SDV IV PRN (15:00)
[2019-05-24] MEDS: CEFAZOLIN SODIUM 2 GM in DEXTROSE 5%-WATER 100 ML IV SCH ×2 (15:26→22:13)
[2019-05-24] MEDS: ATORVASTATIN CALCIUM 40 MG TABLET PO SCH (22:10)
[2019-05-24] MEDS: NORMAL SALINE 10 ML SDV (SCHEDULED) IV SCH (22:12)
[2019-05-25] MEDS: LEVOTHYROXINE SODIUM 0.05 MG TABLET PO SCH (07:32)
[2019-05-25] MEDS ORDERED: METOPROLOL TARTRATE PF/INJ 5 MG/5 ML SDV IV ONE ×2 (07:43→08:45)
[2019-05-25] MEDS: SILDENAFIL CITRATE 20 MG TABLET PO SCH ×3 (07:47→22:10)
[2019-05-25] MEDS: CEFAZOLIN SODIUM 2 GM in DEXTROSE 5%-WATER 100 ML IV SCH ×3 (08:03→22:09)
[2019-05-25 08:14] LABS: ABSOLUTE EOSINOPHILS # (AUTO) 0.1 10^3/uL (0.0-0.6); BASOPHILS % (AUTO) 0.2 % (0-2); EOSINOPHILS % (AUTO) 0.5 % (0-6); HEMATOCRIT 28.5 % (36.0-47.0); LYMPHOCYTES % (AUTO) 7.3 % (13-45); MEAN CORPUSCULAR HEMOGLOBIN 30.1 pg (27.0-33.4); MEAN CORPUSCULAR HGB CONC 34.1 g/dL (32.0-36.0); MEAN CORPUSCULAR VOLUME 88 fl (80-97); MONOCYTES % (AUTO) 7.4 % (3-13); PLATELET COUNT 215 10^3/uL (150-450); RED BLOOD COUNT 3.23 10^6/uL (3.72-5.28); SEGMENTED NEUTROPHILS % (AUTO) 84.6 % (42-78); TOTAL CELLS COUNTED % (AUTO) 100 %
[2019-05-25 08:15] LABS: HEMOGLOBIN 9.7 g/dL (12.0-15.5)
[2019-05-25] MEDS: GUAIFENESIN/D-METHORPHAN (200-20 MG) SYRUP 10 ML PO PRN ×2 (08:50→20:11)
[2019-05-25] MEDS: IPRATROPIUM BROMIDE 0.02% NEB 0.5 MG/2.5 ML AMPUL NEB SCH ×3 (08:53→20:46)
[2019-05-25] MEDS: LEVALBUTEROL HCL NEB 1.25 MG/3 ML AMPUL NEB SCH ×3 (08:53→20:46)
[2019-05-25] MEDS: INSULIN LISPRO 100 UNIT/ML 3 ML VIAL SUBCUT SCH ×4 (08:58→22:05)
[2019-05-25] MEDS: ENOXAPARIN SODIUM INJ 30 MG/0.3 ML DISP.SYRIN SUBCUT SCH (09:08)
[2019-05-25] MEDS: CLOPIDOGREL BISULFATE 75 MG TABLET PO SCH (09:09)
[2019-05-25] MEDS: FAMOTIDINE INJ/PF 20 MG/2 ML SDV IV SCH (09:22)
[2019-05-25] MEDS: DOCUSATE SODIUM 100 MG CAPSULE PO SCH ×2 (09:23→17:08)
[2019-05-25] MEDS: ASPIRIN 81 MG TABLET, ENT COATED PO SCH (09:23)
[2019-05-25] MEDS: GABAPENTIN 100 MG CAPSULE PO SCH (09:23)
[2019-05-25] MEDS: MAGNESIUM OXIDE 400 MG TABLET PO SCH ×2 (09:23→17:08)
[2019-05-25] MEDS: METOPROLOL TARTRATE 25 MG TABLET PO SCH ×2 (09:23→22:09)
[2019-05-25] MEDS: BUSPIRONE HCL 10 MG TABLET PO SCH ×2 (09:23→22:11)
[2019-05-25] MEDS: DILTIAZEM HCL 240 MG CAPSULE.CR PO SCH (09:24)
[2019-05-25] MEDS: FLUTICASONE/VILANTEROL 100-25 MCG/DOSE IH SCH (09:24)
[2019-05-25] MEDS: TIOTROPIUM BROMIDE DPI 5 CAP/KIT (18 MCG/CAP) IH SCH (09:24)
[2019-05-25] MEDS: FLUTICASONE NASAL SPRAY 50 MCG/SPRY 120 SPRAY/16 GM NASL SCH ×2 (09:25→17:08)
[2019-05-25] MEDS: INSULIN GLARGINE,HUM.REC.ANLOG 1,000 UNIT/10 ML VIAL SUBCUT SCH (09:25)
[2019-05-25] MEDS: NORMAL SALINE 10 ML SDV (SCHEDULED) IV SCH ×2 (09:35→22:10)
[2019-05-25] MEDS ORDERED: PROTAMINE SULFATE INJ/PF 50 MG/5 ML SDV IV ONE (12:00)
[2019-05-25] MEDS ORDERED: LORAZEPAM 1 MG TABLET PO PRN (18:48)
--- NOTE | 2019-05-25 18:51 | PDOC PROGRESS REPORT ---
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 Denies any recent hospitalization, denies any recent travel, reports medication adherence, denies any smoking, denies any recent upper/lower respiratory infections. Patient endorses drinking about 8 bottles of 500 cc of water every 24 hours on top of daily coffee intake. Worsening dyspnea on exertion, reporting home SPO2 of 50s with minimal exertion. Denies any fever, chest pain, vomiting, abdominal pain, diarrhea, constipation, any urinary symptoms. In ED she was found to be hypoxic, with low sodium and elevated creatinine and elevated BNP. Patient was started on BiPAP with IV steroids and hospital was consulted for admission. 05/18/2019. No acute events overnight. Patient was found to have multiple laboratory abnormalities in the morning labs, was started on electrolyte protocol. Patient is stating that she is feeling generalized weakness otherwise no shortness of breath has improved. Patient is also complaining of being very anxious because she is in the hospital and the fact that she has been diagnosed with cancer recently. Denies any fever, chills, nausea, vomiting, diarrhea, constipation or any urinary symptoms. 05/19/2019. No acute events overnight. Patient could not sleep overnight stating that could have been due to steroids that she is receiving. Denies any pain. Feels more energized since admission. Was able to walk to the restroom without getting too tired. Is able to walk in full sentences. Denies any fever, chills, nausea, vomiting. Complaining of constipation. 05/20/2019. No acute events overnight. Patient had a good night sleep. In the morning patient seems to be excellent sleepy and unfortunately still dependent on 5 L of oxygen. Complaining of weakness, denies any fever, chills, nausea, vomiting. Had a bowel movement. 05/21/2019. Overnight patient has been dependent on BiPAP, and very hypoxic, with respiratory alkalosis, and tachypneic. Yesterday evening there was noted that she has leukocytosis and a blood culture was drawn which came back positive for gram-positive cocci in clusters, she was started on vancomycin and Zosyn overnight. Also noted to be on A. fib RVR and was started on Cardizem drip. SBP 873131, T-max 98.6, pulse 941 10, RR 3028, SPO2 90-97% FiO2 42%, BiPAP. ABG: pH 7.55, PCO2 31.9, PO2 64.2, FiO2 40%. WBC 25.7, hemoglobin 8.7, platelets 226. 05/22/2019. No acute events overnight. Has been wearing BiPAP overnight. Was to transition to nasal cannula saturating 88-92 on 4 L. Does not seem to be in me apparent distress. Patient is alert oriented, cooperative with physical examination. Denies any fever, chills, nausea, vomiting, diarrhea, constipation or any urinary symptoms. P.o. tolerant. 05/23/2019. No acute events overnight. Did not have to use BiPAP overnight. Still dependent on NC 4 to 5 L, SPO2 88-93, alert oriented, in no apparent distress, denies any fever, chills, nausea, vomiting or any urinary symptoms. Blood cultures growing MSSA, will switch to p.o. antibiotics. Possible DC home tomorrow. 05/24/2019. No acute events overnight. Patient did not use BiPAP overnight, still hypoxic and is dependent on 4-5 L nasal cannula SPO2 high 80s to low 90s. Patient was going to be DC'd home today however was found to have hemoglobin of 6.5 needs transfusion, also as per ID recommendation patient is to be sent home on IV antibiotics. Denies any fever, chills, nausea, diarrhea, constipation or any urinary symptoms. Reason For Visit: ACUTE CHF EXACERBATION, COPD EXACERBATION Physical Exam Vital Signs: Temp Pulse Resp BP Pulse Ox 97.3 F 61 16 135/68 H 100 05/25/19 11:55 05/25/19 14:43 05/25/19 14:43 05/25/19 11:55 05/25/19 14:43 Intake & Output 05/24/19 05/25/19 05/26/19 06:59 06:59 06:59 Intake Total 2939 2165 920 Output Total 300 500 250 Balance 2639 1665 670 Weight 63.8 kg 63 kg Results Laboratory Results: 05/25/19 07:50 05/24/19 06:03 05/25/19 05/25/19 07:50 07:50 WBC Cancelled 13.0 H RBC Cancelled 3.23 L Hgb Cancelled 9.7 L D Hct Cancelled 28.5 L MCV Cancelled 88 MCH Cancelled 30.1 MCHC Cancelled 34.1 RDW Cancelled 16.0 H Plt Count Cancelled 215 Seg Neutrophils % 84.6 H Lymphocytes % 7.3 L Monocytes % 7.4 Eosinophils % 0.5 Basophils % 0.2 Absolute Neutrophils 11.0 H Absolute Lymphocytes 1.0 Absolute Monocytes 1.0 Absolute Eosinophils 0.1 Absolute Basophils 0.0 05/17/19 05/17/19 05/17/19 12:05 12:05 12:05 Creatine Kinase 184 H CK-MB (CK-2) 1.28 Troponin I 0.036 NT-Pro-B Natriuret Pep 34368 H 05/17/19 05/17/19 05/18/19 21:30 21:30 03:22 Creatine Kinase 161 H 183 H CK-MB (CK-2) 1.08 Troponin I 0.030 NT-Pro-B Natriuret Pep 05/18/19 05/18/19 05/18/19 03:22 09:39 09:39 Creatine Kinase 166 H CK-MB (CK-2) 1.42 1.68 Troponin I 0.015 0.020 NT-Pro-B Natriuret Pep 05/20/19 16:51 Creatine Kinase CK-MB (CK-2) Troponin I 0.021 NT-Pro-B Natriuret Pep Impressions: Lung Scan-VQ NM 05/17/19 00:00 IMPRESSION: No evidence of pulmonary embolism. Chest X-Ray 05/20/19 00:00 IMPRESSION: Stable low volume AP portable radiograph with emphysema and pulmonary fibrosis. No acute airspace opacity. Guidance Fluoroscopy 05/24/19 00:00 IMPRESSION: SUCCESSFUL PLACEMENT OF A 5 FR DUAL LUMEN 21 CM PICC IN THE LEFT BASILIC VEIN. Interventional Vascular Procedure 05/24/19 00:00 IMPRESSION: SUCCESSFUL PLACEMENT OF A 5 FR DUAL LUMEN 21 CM PICC IN THE LEFT BASILIC VEIN. PICC Line Insertion 05/24/19 00:00 IMPRESSION: SUCCESSFUL PLACEMENT OF A 5 FR DUAL LUMEN 21 CM PICC IN THE LEFT BASILIC VEIN. Assessment and Plan - Diagnosis (1) Acute respiratory failure with hypoxia Is this a current diagnosis for this admission?: Yes (2) Gram-positive bacteremia Is this a current diagnosis for this admission?: Yes (3) Severe pulmonary arterial systolic hypertension Is this a current diagnosis for this admission?: Yes (4) Atrial fibrillation with RVR Is this a current diagnosis for this admission?: Yes (5) Acute exacerbation of CHF (congestive heart failure) Qualifiers: Heart failure type: systolic Qualified Code(s): I50.23 - Acute on chronic systolic (congestive) heart failure Is this a current diagnosis for this admission?: Yes (6) Hyponatremia Is this a current diagnosis for this admission?: Yes (7) COPD with exacerbation Is this a current diagnosis for this admission?: Yes (8) ALTON (acute kidney injury) Is this a current diagnosis for this admission?: Yes (9) CAD (coronary artery disease) Is this a current diagnosis for this admission?: Yes (10) Hypertension Is this a current diagnosis for this admission?: Yes (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 Is this a current diagnosis for this admission?: Yes (12) Diabetes type 2, controlled Is this a current diagnosis for this admission?: Yes (13) Former smoker Is this a current diagnosis for this admission?: Yes (14) Lung cancer Is this a current diagnosis for this admission?: Yes (15) Hyperlipidemia Is this a current diagnosis for this admission?: Yes (16) Hypothyroidism Is this a current diagnosis for this admission?: Yes (17) Iron deficiency anemia Qualifiers: Iron deficiency anemia type: chronic blood loss Qualified Code(s): D50.0 - Iron deficiency anemia secondary to blood loss (chronic) Is this a current diagnosis for this admission?: Yes (18) GERD (gastroesophageal reflux disease) Is this a current diagnosis for this admission?: Yes (19) Anxiety and depression Is this a current diagnosis for this admission?: Yes (20) Hypocalcemia Is this a current diagnosis for this admission?: Yes (21) Hypokalemia Is this a current diagnosis for this admission?: Yes (22) Hypomagnesemia Is this a current diagnosis for this admission?: Yes
[2019-05-25 19:22] LABS: INTERNATIONAL RATION (INR) 1.14; PROTHROMBIN TIME 14.7 SEC (11.4-15.4)
[2019-05-25] MEDS: ATORVASTATIN CALCIUM 40 MG TABLET PO SCH (22:09)
[2019-05-26] MEDS: SILDENAFIL CITRATE 20 MG TABLET PO SCH ×2 (05:15→13:18)
[2019-05-26] MEDS: LEVOTHYROXINE SODIUM 0.05 MG TABLET PO SCH (05:15)
[2019-05-26] MEDS: CEFAZOLIN SODIUM 2 GM in DEXTROSE 5%-WATER 100 ML IV SCH ×2 (05:15→13:24)
[2019-05-26] MEDS: GUAIFENESIN/D-METHORPHAN (200-20 MG) SYRUP 10 ML PO PRN ×2 (05:20→13:18)
[2019-05-26 06:47] LABS: ABSOLUTE EOSINOPHILS # (AUTO) 0.2 10^3/uL (0.0-0.6); ABSOLUTE LYMPHOCYTES (AUTO) 0.9 10^3/uL (0.5-4.7); ABSOLUTE MONOCYTES (AUTO) 0.7 10^3/uL (0.1-1.4); ABSOLUTE NEUT (AUTO) 9.8 10^3/uL (1.7-8.2); BASOPHILS % (AUTO) 0.2 % (0-2); HEMOGLOBIN 8.7 g/dL (12.0-15.5); LYMPHOCYTES % (AUTO) 7.9 % (13-45); MEAN CORPUSCULAR HEMOGLOBIN 30.7 pg (27.0-33.4); MEAN CORPUSCULAR HGB CONC 34.8 g/dL (32.0-36.0); MEAN CORPUSCULAR VOLUME 88 fl (80-97); MONOCYTES % (AUTO) 6.1 % (3-13); PLATELET COUNT 174 10^3/uL (150-450); RED BLOOD COUNT 2.83 10^6/uL (3.72-5.28); RED CELL DISTRIBUTION WIDTH 15.7 % (11.5-14.0); SEGMENTED NEUTROPHILS % (AUTO) 83.8 % (42-78); TOTAL CELLS COUNTED % (AUTO) 100 %; WHITE BLOOD COUNT 11.6 10^3/uL (4.0-10.5)
[2019-05-26 06:49] LABS: INTERNATIONAL RATION (INR) 1.11; PROTHROMBIN TIME 14.3 SEC (11.4-15.4)
[2019-05-26 07:18] LABS: ALANINE AMINOTRANSFERASE 10 U/L (9-52); ALBUMIN 2.7 g/dL (3.5-5.0); ALKALINE PHOSPHATASE 53 U/L (38-126); ANION GAP 6 (5-19); ASPARTATE AMINO TRANSFERASE 27 U/L (14-36); BILIRUBIN,DIRECT 0.3 mg/dL (0.0-0.4); BILIRUBIN,TOTAL 1.1 mg/dL (0.2-1.3); BLOOD UREA NITROGEN 21 mg/dL (7-20); CALCIUM 8.5 mg/dL (8.4-10.2); CARBON DIOXIDE 29 mmol/L (22-30); CHLORIDE 101 mmol/L (98-107); GLUCOSE 98 mg/dL (75-110); POTASSIUM 3.8 mmol/L (3.6-5.0); TOTAL PROTEIN 5.6 g/dL (6.3-8.2)
[2019-05-26] MEDS: IPRATROPIUM BROMIDE 0.02% NEB 0.5 MG/2.5 ML AMPUL NEB SCH ×2 (07:43→13:49)
[2019-05-26] MEDS: LEVALBUTEROL HCL NEB 1.25 MG/3 ML AMPUL NEB SCH ×2 (07:43→13:49)
[2019-05-26] MEDS ORDERED: METOPROLOL TARTRATE PF/INJ 5 MG/5 ML SDV IV PRN (08:43)
[2019-05-26] MEDS: INSULIN LISPRO 100 UNIT/ML 3 ML VIAL SUBCUT SCH ×3 (08:44→16:06)
[2019-05-26] MEDS ORDERED: LORAZEPAM 1 MG TABLET PO PRN (08:57)
[2019-05-26] MEDS ORDERED: LORAZEPAM 0.5 MG TABLET PO PRN (09:01)
[2019-05-26] MEDS: FLUTICASONE/VILANTEROL 100-25 MCG/DOSE IH SCH (09:04)
[2019-05-26] MEDS: TIOTROPIUM BROMIDE DPI 5 CAP/KIT (18 MCG/CAP) IH SCH (09:05)
[2019-05-26] MEDS: FLUTICASONE NASAL SPRAY 50 MCG/SPRY 120 SPRAY/16 GM NASL SCH ×2 (09:05→17:24)
[2019-05-26] MEDS: MAGNESIUM OXIDE 400 MG TABLET PO SCH ×2 (09:06→17:24)
[2019-05-26] MEDS: GABAPENTIN 100 MG CAPSULE PO SCH (09:07)
[2019-05-26] MEDS: METOPROLOL TARTRATE 25 MG TABLET PO SCH (09:07)
[2019-05-26] MEDS: DOCUSATE SODIUM 100 MG CAPSULE PO SCH ×2 (09:07→17:24)
[2019-05-26] MEDS: ASPIRIN 81 MG TABLET, ENT COATED PO SCH (09:07)
[2019-05-26] MEDS: BUSPIRONE HCL 10 MG TABLET PO SCH (09:07)
[2019-05-26] MEDS: FAMOTIDINE INJ/PF 20 MG/2 ML SDV IV SCH (09:08)
[2019-05-26] MEDS: DILTIAZEM HCL 240 MG CAPSULE.CR PO SCH (09:08)
[2019-05-26] MEDS: ENOXAPARIN SODIUM INJ 30 MG/0.3 ML DISP.SYRIN SUBCUT SCH (09:09)
[2019-05-26] MEDS: INSULIN GLARGINE,HUM.REC.ANLOG 1,000 UNIT/10 ML VIAL SUBCUT SCH (09:09)
[2019-05-26] MEDS: NORMAL SALINE 10 ML SDV (SCHEDULED) IV SCH (09:09)
[2019-05-26] MEDS: CLOPIDOGREL BISULFATE 75 MG TABLET PO SCH (09:09)
--- NOTE | 2019-05-26 10:26 | RADIOLOGY REPORT (SQ) ---
EXAM DESCRIPTION: PICC INSERTION; FLUORO/CV PLACEMENT; U/S GUIDE FOR VASCULAR ACCESS COMPLETED DATE/TIME: 05/26/2019 10:07 am REASON FOR STUDY: needs home antibiotics; IV HOME ABXS; IV ABX COMPARISON: 05/24/2019 FLUOROSCOPY TIME: 11 seconds. 2 images saved to PACS. TECHNIQUE: Fluoroscopic and ultrasound guided PICC placement. LIMITATIONS: None. PROCEDURE: After written consent and assessment were obtained, the patient was brought into the fluo roscopy room and placed supine on the table. Ultrasound evaluation of potential access sites were per formed. After successfully identifying a patent right basilic vein, the right arm was prepped and matteo ped in a sterile fashion along with the ultrasound probe. The entry site was anesthetized with 1% lid ocaine. A 21 gauge 7 cm needle was advanced through the skin and into the basilic vein under live ult rasound guidance. An ultrasound image was saved to PACS confirming access site. A .018 guide wire w as then inserted through the needle and into the venous system. The needle was then removed and an 11 blade scalpel was used to make a 1cm skin incision. A 5 fr peel-away sheath was advanced over the w asim and into the venous system. A measurement was then made using the existing wire and live fluorosc opic guidance. The wire was then removed and trimmed. The PICC was advanced through the peel-away she ath and into the venous system. The peel-away sheath was removed and the catheter was adhered to the patients arm with a stat lock. The catheter was then aspirated and flushed and a sterile bandage was placed over the access site. A fluoroscopic spot image was saved to PACS confirming the catheter tip within the superior vena cava. IMPRESSION: SUCCESSFUL PLACEMENT OF A 5 FR DUAL LUMEN 27 CM PICC IN THE RIGHT BASILIC VEIN. COMMENT: Patient medication list reviewed: Yes- Quality ID# 130:Eligible professional attests to doc umenting in the medical record they obtained, updated, or reviewed the patient's current medications. . Quality ID 145: Final reports for procedures using fluoroscopy that document radiation exposure chris jusitn, or exposure time and number of fluorographic images (if radiation exposure indices are not avail able) Quality ID #76: The patient was prepped and draped using maximum sterile barrier technique including cap, mask, sterile gown, sterile gloves, a large sterile sheet, hand hygiene, and 2% Chlorhexidine fo r cutaneous antisepsis. When ultrasound is used, sterile ultrasound techniques are followed requiring sterile gel and sterile probes. TECHNICAL DOCUMENTATION: JOB ID: [id number] [employer]- All Rights Reserved rev-03/18 Reading location - IP/workstation name: [email or web address]
[2019-05-26 13:38] VITALS: BP 94/53
--- NOTE | 2019-05-26 15:17 | PDOC CONSULTATION ---
Consultation Consult Date: 05/20/19 Attending physician:: MICH LEONARDO Provider Consulted: ZEESHAN YOUNG Consult reason:: Acute on chronic respiratory failure History of Present Illness Admission Date/PCP: 05/17/19 14:30 MIGUEL ANGEL ARMSTRONG MD History of Present Illness: JAVED WAY is a 73 year old female, with weakness and shortness of breath no cough no nausea vomiting diarrhea fevers or chills been followed by oncology anemia as well as for a long nodule has been biopsied several times diagnostic had a PET scan that showed metabolic activity in mediastinal lymph nodes. Additionally she was found to have a lot of electrolyte depletions as she had not eaten or and lost her appetite over the last several days. Also carries a diagnosis of advanced COPD as well as pulmonary interstitial fibrosis. She has been on bronchodilator therapy supplemental oxygen with limited improvement. Past Medical History Cardiac Medical History: Reports: Coronary Artery Disease, Hyperlipidema, Hypertension Denies: Myocardial Infarction Pulmonary Medical History: Reports: Asthma, Chronic Obstructive Pulmonary Disease (COPD), Pneumonia, Other - Pulmonary interstitial lung disease Denies: Bronchitis EENT Medical History: Reports: Cataracts Neurological Medical History: Denies: Seizures Endocrine Medical History: Reports: Diabetes Mellitus Type 2 GI Medical History: Reports: Gastroesophageal Reflux Disease Musculoskeltal Medical History: Denies: Arthritis Psychiatric Medical History: Reports: Depression Traumatic Medical History: Denies: Gunshot Wound, Pneumothorax Hematology: Reports: Anemia Denies: Sickle Cell Disease Infectious Medical History: Denies: Hepatitis B, Hepatitis C, HIV Past Surgical History Past Surgical History: Reports: Cardiac Catheterization - 2 stents, Cholecystectomy, Coronary Stent - x1 November 2014, Other - colonoscopy with EGD 2015, ovarian cyst removal, bronchoscopies Social History Information Source: [facility] Records Lives with: Family Smoking Status: Former Smoker Cigarettes Packs Per Day: 1 Number of Years Smokin Last Time Smoked: 25 years ago. Passive smoke exposure as: Both Frequency of Alcohol Use: None Hx Recreational Drug Use: No Drugs: None Hx Prescription Drug Abuse: No Do you have pets?: No Have you had any respiratory illnesses as a child?: No Have you been exposed to any sick contacts recently?: No Have you travelled outside of [place] in the past 12 months?: No Family History Parental Family History Reviewed: No Children Family History Reviewed: No Sibling(s) Family History Reviewed.: No Medication/Allergy Home Medications: Aspirin [Ecotrin 81 mg EC Tablet] 81 mg PO DAILY 05/17/19 Atorvastatin Calcium [Lipitor 40 mg Tablet] 40 mg PO QHS 05/17/19 Clopidogrel Bisulfate [Plavix 75 mg Tablet] 75 mg PO DAILY 05/17/19 Fluticasone/Vilanterol [Breo 100-25 Mcg Ellipta 14 Dose/Dpi] 1 inh IH DAILY 05/17/19 Furosemide [Lasix 20 mg Tablet] 20 mg PO DAILY 05/17/19 Gabapentin [Neurontin 100 mg Capsule] 100 mg PO DAILY 05/17/19 Ipratropium/Albuterol Sulfate [Duoneb 3 ml Ampul] 3 ml NEB [id number] PRN 05/17/19 Levothyroxine Sodium [Synthroid 0.05 mg Tablet] 50 mcg PO DAILY 05/17/19 Metformin HCl [Glucophage 500 mg Tablet] 500 mg PO BIDBS 05/17/19 Metoprolol Tartrate [Lopressor 25 mg Tablet] 25 mg PO Q12 05/17/19 Omeprazole 40 mg PO BIDBS 05/17/19 Temazepam [Restoril 15 mg Capsule] 30 mg PO QHS 05/17/19 Tiotropium [place] [Spiriva Respimat] 2 puff IH DAILY 05/17/19 Buspirone HCl [Buspar 10 mg Tablet] 10 mg PO Q12 30 Days #60 tablet 05/24/19 Cefazolin Sodium [Ancef Inj 1 gm Vial] 2 gm IV Q8 vial 05/24/19 Diltiazem HCl [Cardizem Cd 240 mg Capsule.cr] 240 mg PO DAILY 30 Days #30 capsule.cr 05/24/19 Sertraline HCl [Zoloft 50 mg Tablet] 50 mg PO DAILY 30 Days #30 tablet 05/24/19 Sildenafil Citrate [Revatio 20 mg Tablet] 20 mg PO Q8 30 Days #90 tablet 05/24/19 Allergies/Adverse Reactions: No Known Allergies Allergy (Verified 03/21/18 14:03) Review of Systems ROS unobtainable: Due to mental status Physical Exam Vital Signs: Temp Pulse Resp BP Pulse Ox 97.4 F 80 15 123/71 97 05/22/19 07:44 05/22/19 08:38 05/22/19 08:38 05/22/19 07:44 05/22/19 08:38 Intake & Output 05/21/19 05/22/19 05/23/19 06:59 06:59 06:59 Intake Total 917 864 Output Total 50 850 Balance 867 14 Weight 53.4 kg 53 kg General appearance: PRESENT: no acute distress, disheveled, hard of hearing, thin. ABSENT: cooperative Head exam: PRESENT: atraumatic, normocephalic Eye exam: PRESENT: conjunctiva pale, EOMI. ABSENT: nystagmus, periorbital swelling, scleral icterus Mouth exam: PRESENT: dry mucosa, neck supple, tongue midline Teeth exam: PRESENT: poor dentation Neck exam: ABSENT: carotid bruit, full ROM, JVD, lymphadenopathy, meningismus, tenderness, thyromegaly, tracheal deviation, tracheostomy, other Respiratory exam: PRESENT: decreased breath sounds, prolonged expiratory phas, rales, rhonchi, symmetrical, tachypnea. ABSENT: retraction, stridor Cardiovascular exam: PRESENT: RRR, +S1, +S2, tachycardia Pulses: PRESENT: normal radial pulses GI/Abdominal exam: PRESENT: soft. ABSENT: mass, tenderness Extremities exam: ABSENT: calf tenderness, clubbing, joint swelling, pedal edema Musculoskeletal exam: ABSENT: ambulatory, deformity, dislocation Neurological exam: PRESENT: altered Psychiatric exam: PRESENT: anxious Skin exam: PRESENT: dry, warm Results Laboratory Results: 05/21/19 04:15 05/20/19 13:36 05/17/19 05/17/19 05/17/19 12:05 12:05 12:05 Creatine Kinase 184 H CK-MB (CK-2) 1.28 Troponin I 0.036 NT-Pro-B Natriuret Pep 12690 H 05/17/19 05/17/19 05/18/19 21:30 21:30 03:22 Creatine Kinase 161 H 183 H CK-MB (CK-2) 1.08 Troponin I 0.030 NT-Pro-B Natriuret Pep 05/18/19 05/18/19 05/18/19 03:22 09:39 09:39 Creatine Kinase 166 H CK-MB (CK-2) 1.42 1.68 Troponin I 0.015 0.020 NT-Pro-B Natriuret Pep 05/20/19 16:51 Creatine Kinase CK-MB (CK-2) Troponin I 0.021 NT-Pro-B Natriuret Pep Impressions: Lung Scan-VQ NM 05/17/19 00:00 IMPRESSION: No evidence of pulmonary embolism. Chest X-Ray 05/20/19 00:00 IMPRESSION: Stable low volume AP portable radiograph with emphysema and pulmonary fibrosis. No acute airspace opacity. Assessment & Plan - Diagnosis (1) Acute respiratory failure with hypoxia Is this a current diagnosis for this admission?: Yes Plan: Advanced COPD and pulmonary fibrosis supplemental oxygen intravenous steroids long-acting beta agonist and long-acting anticholinergic agents (2) Atrial fibrillation with RVR Is this a current diagnosis for this admission?: Yes Plan: Stable for the moment (3) COPD exacerbation Is this a current diagnosis for this admission?: Yes Plan: Long-acting beta agonist, long-acting anticholinergics steroids (4) Severe pulmonary arterial systolic hypertension Is this a current diagnosis for this admission?: Yes - Plan Summary Plan Summary: COPD interstitial lung disease pulmonary hypertension solitary pulmonary nodule? Mediastinal adenopathy
--- NOTE | 2019-05-26 18:47 | PDOC DISCHARGE SUMMARY ---
General - Admit/Disc Date/PCP Admission Date/Primary Care Provider: 05/17/19 14:30 MIGUEL ANGEL MARQUEZ MD Discharge Date: 05/26/19 - Discharge Diagnosis (1) Acute respiratory failure with hypoxia Is this a current diagnosis for this admission?: Yes (2) Gram-positive bacteremia Is this a current diagnosis for this admission?: Yes (3) Severe pulmonary arterial systolic hypertension Is this a current diagnosis for this admission?: Yes (4) Atrial fibrillation with RVR Is this a current diagnosis for this admission?: Yes (5) Acute exacerbation of CHF (congestive heart failure) Is this a current diagnosis for this admission?: Yes (6) Hyponatremia Is this a current diagnosis for this admission?: Yes (7) COPD with exacerbation Is this a current diagnosis for this admission?: Yes (8) ALTNO (acute kidney injury) Is this a current diagnosis for this admission?: Yes (9) CAD (coronary artery disease) Is this a current diagnosis for this admission?: Yes (10) Hypertension Is this a current diagnosis for this admission?: Yes (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: Yes (19) Anxiety and depression Is this a current diagnosis for this admission?: Yes (20) Hypocalcemia Is this a current diagnosis for this admission?: Yes (21) Hypokalemia Is this a current diagnosis for this admission?: Yes (22) Hypomagnesemia Is this a current diagnosis for this admission?: Yes - Additional Information Resuscitation Status: Do Not Intubate Discharge Diet: As Tolerated, Diabetic Discharge Activity: Activity As Tolerated, Balance Activity w/Rest, Energy Conservation, Supervised Activity Prescriptions: Buspirone HCl [Buspar 10 mg Tablet] 10 mg PO Q12 30 Days #60 tablet Diltiazem HCl [Cardizem Cd 240 mg Capsule.cr] 240 mg PO DAILY 30 Days #30 capsule.cr Lorazepam [Ativan 0.5 mg Tablet] 0.25 mg PO Q8 4 Days #12 tab Sertraline HCl [Zoloft 50 mg Tablet] 50 mg PO DAILY 30 Days #30 tablet Sildenafil Citrate [Revatio 20 mg Tablet] 20 mg PO Q8 30 Days #90 tablet Home Medications: Aspirin [Ecotrin 81 mg EC Tablet] 81 mg PO DAILY 05/17/19 Atorvastatin Calcium [Lipitor 40 mg Tablet] 40 mg PO QHS 05/17/19 Clopidogrel Bisulfate [Plavix 75 mg Tablet] 75 mg PO DAILY 05/17/19 Fluticasone/Vilanterol [Breo 100-25 Mcg Ellipta 14 Dose/Dpi] 1 inh IH DAILY 05/17/19 Furosemide [Lasix 20 mg Tablet] 20 mg PO DAILY 05/17/19 Gabapentin [Neurontin 100 mg Capsule] 100 mg PO DAILY 05/17/19 Ipratropium/Albuterol Sulfate [Duoneb 3 ml Ampul] 3 ml NEB [id number] PRN 05/17/19 Levothyroxine Sodium [Synthroid 0.05 mg Tablet] 50 mcg PO DAILY 05/17/19 Metformin HCl [Glucophage 500 mg Tablet] 500 mg PO BIDBS 05/17/19 Metoprolol Tartrate [Lopressor 25 mg Tablet] 25 mg PO Q12 05/17/19 Omeprazole 40 mg PO BIDBS 05/17/19 Temazepam [Restoril 15 mg Capsule] 30 mg PO QHS 05/17/19 Tiotropium Dola [Spiriva Respimat] 2 puff IH DAILY 05/17/19 Buspirone HCl [Buspar 10 mg Tablet] 10 mg PO Q12 30 Days #60 tablet 05/24/19 Cefazolin Sodium [Ancef Inj 1 gm Vial] 2 gm IV Q8 vial 05/24/19 Diltiazem HCl [Cardizem Cd 240 mg Capsule.cr] 240 mg PO DAILY 30 Days #30 capsule.cr 05/24/19 Sertraline HCl [Zoloft 50 mg Tablet] 50 mg PO DAILY 30 Days #30 tablet 05/24/19 Sildenafil Citrate [Revatio 20 mg Tablet] 20 mg PO Q8 30 Days #90 tablet 05/24/19 Lorazepam [Ativan 0.5 mg Tablet] 0.25 mg PO Q8 4 Days #12 tab 05/26/19 History of Present Illness Patient complains of: SOB History of Present Illness: JAVED WAY is a 73 year old female past medical history of CAD status post 2 stents, COPD on home oxygen, former smoker, lung cancer (no final diagnosis, still undergoing evaluation by oncologist as outpatient), iron deficiency anemia secondary to small bowel AVM, GERD, diabetes, hypertension, dyslipidemia, hypothyroidism presenting to ED complaining of worsening dyspnea on exertion, nausea, abdominal bloating, generalized weakness for the last 2 months. Denies any recent hospitalization, denies any recent travel, reports medication adherence, denies any smoking, denies any recent upper/lower respiratory infections. Patient endorses drinking about 8 bottles of 500 cc of water every 24 hours on top of daily coffee intake. Worsening dyspnea on exertion, reporting home SPO2 of 50s with minimal exertion. Denies any fever, chest pain, vomiting, abdominal pain, diarrhea, constipation, any urinary symptoms. In ED she was found to be hypoxic, with low sodium and elevated creatinine and elevated BNP. Patient was started on BiPAP with IV steroids and hospital was consulted for admission. Hospital Course Hospital Course: (1) Acute respiratory failure with hypoxia Hypoxia patient did not have significant improvement of her respiratory symptoms and decided to be transitioned to mild improvement. Able to stay on supplemental oxygen overnight. SPO2 maintaining 88-92 on 4 to 5 L. Multifactorial. Due to combination of underlying severe COPD, severe pulmonary hypertension interstitial lung disease. 05/22/2019. SBP 1001 23, T-max 97.4, pulse 80s, RR 1517, SPO2 8892 4 L NC. WBC 25.7, hemoglobin 8.7, platelets 226 05/21/2019. SBP 788658, T-max 98.6, pulse 941 10, RR 3028 SPO2 90-97% FiO2 42%, BiPAP. ABG: pH 7.55, PCO2 31.9, PO2 64.2, FiO2 40%. WBC 25.7, hemoglobin 8.7, platelets 226. 05/18/2019. ABG: pH 7.46, PCO2 25.5, PO2 65.4, FiO2 21%. 05/17/2019. pH 7.47, PCO2 26.9, PO2 96.3, FiO2 35% WBC 8.9, hemoglobin 11.5, platelets 292 Sodium 130, potassium 4.3, bicarb 21, BUN 19, creatinine 1.61 Troponin 0.036, proBNP 12,900. 05/20/2019. CXR stable low-volume with emphysema and pulmonary fibrosis. 05/19/2019. VQ scan negative for PE. DC IV steroids. Received 7 days of IV steroids. Continue PRN BiPAP, supplemental oxygen, antibiotics. DC steroids. 2D echo suboptimal. Ejection fraction WNL. RVSP 88 mmHg. Pulmonology following. Recommendations noted. As per my conversation with Dr. Núñez patient has severe pulmonary fibrosis and severe pulmonary hypertension. Recommendation is ENVIRONMENTAL AIDE VS hospice. Patient does not want to be transferred to rehab, however if she goes home she will need hospital bed requiring her head to be elevated more than 30 degrees most of the time due to underlying severe pulmonary hypertension, COPD and CHF. (2) Gram-positive bacteremia Likely source urine. Urine culture growing MSSA. Blood culture 2/2 growing MSSA. As per ID recommendation patient is to be switched to IV cefazolin for another 2 to 3 weeks from last negative blood culture. Antibiotics day 7 Cefazolin day 3. Received 1 day of clindamycin. Received 3 days of Zosyn. Received 3 days of vancomycin. Repeat blood culture on 05/23/2019 came back positive for MSSA. Patient's daughter and hospice notified. Advised daughter and hospice to repeat blood culture after antibiotic course or if she becomes symptomatic. Discharged on cefazolin for another 14 days starting today. Last day 06/10/2019. (3) Severe pulmonary arterial systolic hypertension Mild improvement of respiratory symptoms. Did not need BiPAP overnight. Due to underlying severe interstitial lung disease/COPD. Severe pulmonary hypertension by echo. RVSP 83-88 mmHg. Per #1. Increase sildenafil 20 mg p.o. 3 times daily. Sildenafil 10 mg p.o. 3 times daily was started on 05/22/2019. Pulmonology notified. Agrees with the plan. Pulmonology consulted. Recommendations noted. As per my verbal conversation with Dr. Núñez patient has severe underlying lung disease and prognosis is not good. Recommendation is ENVIRONMENTAL AIDE VS hospice. (4) Atrial fibrillation with RVR Rate controlled. Not anticoagulated. New onset. Likely due to underlying severe lung disease. Cardizem drip DC'd on 05/22/2019. Transition to p.o. short acting Cardizem. Continue Cardizem p.o. CD daily and p.o. beta-blockers. Monitor vitals. Not a candidate for anticoagulation due to chronic GI bleed caused by AVM. Continue subcutaneous heparin DVT prophylaxis. (5) Acute exacerbation of CHF (congestive heart failure) Euvolemic. On admission patient had elevated proBNP and crackles throughout the lung. Initial impression was CHF exacerbation and patient was placed on volume restriction and IV Lasix 2D echo was ordered. However based on 2D echo result she has normal LVEF but severe pulmonary hypertension. Continue diuretics, cardiac diet, KIM and BB. (6) Hyponatremia Resolved. Likely a combination of SIADH due to underlying lung cancer and delusional hyponatremia due to CHF exacerbation. As per #1. (7) COPD with exacerbation As per #1 (8) ALTON (acute kidney injury) Resolved. Creatinine back to baseline. Prerenal likely due to intravascular volume depletion due to CHF exacerbation. Cautious diuresis guided by volume status, avoid nephrotoxic meds. If no imp rovement will consult nephrology. (9) CAD (coronary artery disease) Status post PCI x2 stent placement. Denies any active anginal symptoms. Continue DAPT, beta-blockers, statins. Follow-up 2D echo. Patient may benefit from KIM/ARB if kidney function improves. (10) Hypertension Normotensive. Continue beta-blockers, diuretics. Monitor volume status. Adjust meds as needed. 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 History of iron deficiency anemia, requiring iron transfusions in the past. Monitor H&H, supportive transfusions, restart home meds. (12) Diabetes type 2, controlled Takes metformin as outpatient. Reports good control. Diabetic diet, pre-meal insulin, sliding scale insulin, long-acting insulin, Accu-Chek, hypoglycemia protocol. Adjust dosage as needed. Restart home meds upon discharge. Outpatient PCP follow-up. (13) Former smoker Nicotine patch will be made available if patient desires. Counseled on abstaining from tobacco. (14) Lung cancer As per Dr. Oneil oncologist note there is no sign of occult malignancy. Patient is scheduled to have a CT done in July as outpatient with oncologist. Patient reports history of recently diagnosed questionable lung cancer. As per patient she had a lymph node biopsy which was positive but as per radiologist it was insufficient sample. Patient follows up with Dr. Marquez as an outpatient and repeat CT is planned in July. Oncology following. Recommendations noted. Outpatient oncology follow-up. (15) Hyperlipidemia Continue statins. LFTs WNL. Diet and lifestyle modification recommended. Outpatient PCP follow-up. (16) Hypothyroidism Restart home meds. TSH WNL. (17) Iron deficiency anemia As per #7. Hgb 6.5 today. Status post 2 PRBC transfusion. Status post 2 PRBC transfusion 05/24/2019. Status post 1 dose of Injectafer transfusion 05/24/2019. Patient threshold for transfusion should be hemoglobin of 9 due to severe multiple underlying comorbidities. H&H tomorrow. (18) GERD (gastroesophageal reflux disease) Restart home meds. (19) Anxiety and depression Complaining of general anxiety and depression to being diagnosed with possible lung cancer recently. Denies any SI/HI. Start on BuSpar 10 mg p.o. twice daily and Prozac daily. Back to Prozac. Patient very sensitive to mirtazapine. Patient becomes too drowsy. Which puts her at risk of fall. Will DC mirtazapine at this point. Outpatient PCP follow-up. (20) Hypocalcemia Resolved. Calcium WNL. It was likely due to overdiuresis. PTH vitamin D WNL. Replace as needed. Calcium level tomorrow. (21) Hypokalemia Potassium WNL. It was likely due to overdiuresis. No acute EKG changes. Continue supplemental potassium. BMP tomorrow. (22) Hypomagnesemia Resolved. Magnesium WNL. It was likely due to overdiuresis. Continue supplemental magnesium. Magnesium level tomorrow. Physical Exam Vital Signs: Temp Pulse Resp BP Pulse Ox 98.2 F 70 26 H 119/74 92 05/26/19 12:26 05/26/19 13:57 05/26/19 16:00 05/26/19 12:26 05/26/19 16:00 Intake & Output 05/25/19 05/26/19 05/27/19 06:59 06:59 06:59 Intake Total 2165 1020 900 Output Total 500 850 Balance 1665 170 900 Weight 63 kg 62 kg General appearance: PRESENT: no acute distress, well-developed, well-nourished Head exam: PRESENT: atraumatic, normocephalic Eye exam: PRESENT: conjunctiva pink, EOMI, PERRLA. ABSENT: scleral icterus Ear exam: PRESENT: normal external ear exam Mouth exam: PRESENT: moist, tongue midline Neck exam: ABSENT: carotid bruit, JVD, lymphadenopathy, thyromegaly Respiratory exam: PRESENT: clear to auscultation rob. ABSENT: rales, rhonchi, wheezes Cardiovascular exam: PRESENT: RRR. ABSENT: diastolic murmur, rubs, systolic murmur Pulses: PRESENT: normal dorsalis pedis pul Vascular exam: PRESENT: normal capillary refill GI/Abdominal exam: PRESENT: normal bowel sounds, soft. ABSENT: distended, guarding, mass, organolmegaly, rebound, tenderness Rectal exam: PRESENT: deferred Extremities exam: PRESENT: full ROM. ABSENT: calf tenderness, clubbing, pedal edema Neurological exam: PRESENT: alert, awake, oriented to person, oriented to place, oriented to time, oriented to situation, CN II-XII grossly intact. ABSENT: motor sensory deficit Psychiatric exam: PRESENT: appropriate affect, normal mood. ABSENT: homicidal ideation, suicidal ideation Skin exam: PRESENT: dry, intact, warm. ABSENT: cyanosis, rash Results Laboratory Results: 05/26/19 06:04 05/26/19 06:04 05/26/19 05/26/19 06:04 06:04 WBC 11.6 H RBC 2.83 L Hgb 8.7 L Hct 25.0 L MCV 88 MCH 30.7 MCHC 34.8 RDW 15.7 H Plt Count 174 Seg Neutrophils % 83.8 H Lymphocytes % 7.9 L Monocytes % 6.1 Eosinophils % 2.0 Basophils % 0.2 Absolute Neutrophils 9.8 H Absolute Lymphocytes 0.9 Absolute Monocytes 0.7 Absolute Eosinophils 0.2 Absolute Basophils 0.0 Sodium 135.8 L Potassium 3.8 Chloride 101 Carbon Dioxide 29 Anion Gap 6 BUN 21 H Creatinine 0.79 Est GFR ( Amer) > 60 Est GFR (Non-Af Amer) > 60 Glucose 98 Calcium 8.5 Total Bilirubin 1.1 AST 27 ALT 10 Alkaline Phosphatase 53 Total Protein 5.6 L Albumin 2.7 L 05/23/19 14:38 Blood Blood Culture - Final Staphylococcus Aureus 05/17/19 05/17/19 05/17/19 12:05 12:05 12:05 Creatine Kinase 184 H CK-MB (CK-2) 1.28 Troponin I 0.036 NT-Pro-B Natriuret Pep 83114 H 05/17/19 05/17/19 05/18/19 21:30 21:30 03:22 Creatine Kinase 161 H 183 H CK-MB (CK-2) 1.08 Troponin I 0.030 NT-Pro-B Natriuret Pep 05/18/19 05/18/19 05/18/19 03:22 09:39 09:39 Creatine Kinase 166 H CK-MB (CK-2) 1.42 1.68 Troponin I 0.015 0.020 NT-Pro-B Natriuret Pep 05/20/19 16:51 Creatine Kinase CK-MB (CK-2) Troponin I 0.021 NT-Pro-B Natriuret Pep Impressions: Lung Scan-VQ NM 05/17/19 00:00 IMPRESSION: No evidence of pulmonary embolism. Chest X-Ray 05/20/19 00:00 IMPRESSION: Stable low volume AP portable radiograph with emphysema and pulmonary fibrosis. No acute airspace opacity. Guidance Fluoroscopy 05/26/19 00:00 IMPRESSION: SUCCESSFUL PLACEMENT OF A 5 FR DUAL LUMEN 27 CM PICC IN THE RIGHT BASILIC VEIN. Interventional Vascular Procedure 05/26/19 00:00 IMPRESSION: SUCCESSFUL PLACEMENT OF A 5 FR DUAL LUMEN 27 CM PICC IN THE RIGHT BASILIC VEIN. PICC Line Insertion 05/26/19 06:00 IMPRESSION: SUCCESSFUL PLACEMENT OF A 5 FR DUAL LUMEN 27 CM PICC IN THE RIGHT BASILIC VEIN. Qualifiers - * PATIENT BEING DISCHARGED WITH ANY OF THE FOLLOWING DIAGNOSIS: No Acute Heart Failure - Is this a Heart Failure Patient?: No
== END 2019-05-26 18:05 | disposition hospice, home (50) | DRG 189 ==
LOC: ER 12:12 → EH 14:30 → 3S 05-18 00:26
PROVIDERS: ADMIT Hospitalist; ATTEND Hospitalist
PROC: 5A09457 Assistance with Respiratory Ventilation, 24-96 Consecutive Hours, Continuous Positive Airway Pressure (ICD-10-PCS; principal; 2019-05-17)
PROC: 5A09557 Assistance with Respiratory Ventilation, Greater than 96 Consecutive Hours, Continuous Positive Airway Pressure (ICD-10-PCS; 2019-05-20)
PROC: 30233N1 Transfusion of Nonautologous Red Blood Cells into Peripheral Vein, Percutaneous Approach (ICD-10-PCS; 2019-05-24)
PROC: 02HV33Z Insertion of Infusion Device into Superior Vena Cava, Percutaneous Approach (ICD-10-PCS; 2019-05-24)
PROC: B5181ZA Fluoroscopy of Superior Vena Cava using Low Osmolar Contrast, Guidance (ICD-10-PCS; 2019-05-24)
PROC: B548ZZA Ultrasonography of Superior Vena Cava, Guidance (ICD-10-PCS; 2019-05-24)
PROC: 02HV33Z Insertion of Infusion Device into Superior Vena Cava, Percutaneous Approach (ICD-10-PCS; 2019-05-26)
PROC: B5181ZA Fluoroscopy of Superior Vena Cava using Low Osmolar Contrast, Guidance (ICD-10-PCS; 2019-05-26)
PROC: B548ZZA Ultrasonography of Superior Vena Cava, Guidance (ICD-10-PCS; 2019-05-26)
DX: J96.01 Acute respiratory failure with hypoxia (principal); I50.23 Acute on chronic systolic (congestive) heart failure; N17.9 Acute kidney failure, unspecified; C34.90 Malignant neoplasm of unspecified part of unspecified bronchus or lung; E22.2 Syndrome of inappropriate secretion of antidiuretic hormone; R78.81 Bacteremia; J43.9 Emphysema, unspecified; Z66 Do not resuscitate; I27.21 Secondary pulmonary arterial hypertension; I48.91 Unspecified atrial fibrillation; I25.10 Atherosclerotic heart disease of native coronary artery without angina pectoris; I11.0 Hypertensive heart disease with heart failure; E11.9 Type 2 diabetes mellitus without complications; E78.5 Hyperlipidemia, unspecified; E03.9 Hypothyroidism, unspecified; F41.1 Generalized anxiety disorder; K21.9 Gastro-esophageal reflux disease without esophagitis; F32.9 Major depressive disorder, single episode, unspecified; E83.51 Hypocalcemia; E87.6 Hypokalemia; B95.61 Methicillin susceptible Staphylococcus aureus infection as the cause of diseases classified elsewhere; E83.42 Hypomagnesemia; D50.0 Iron deficiency anemia secondary to blood loss (chronic); K59.00 Constipation, unspecified; T50.2X5A Adverse effect of carbonic-anhydrase inhibitors, benzothiadiazides and other diuretics, initial encounter; E78.00 Pure hypercholesterolemia, unspecified; Q27.33 Arteriovenous malformation of digestive system vessel; Z99.81 Dependence on supplemental oxygen; Z87.891 Personal history of nicotine dependence; Z79.899 Other long term (current) drug therapy; Z79.84 Long term (current) use of oral hypoglycemic drugs; Z79.02 Long term (current) use of antithrombotics/antiplatelets; Z79.82 Long term (current) use of aspirin; Z79.890 Hormone replacement therapy; Z95.5 Presence of coronary angioplasty implant and graft; Z98.1 Arthrodesis status
CPT/HCPCS: 36415; 36430; 36569; 36600; 71045; 76937; 77001; 78582; 80048; 80053; 81001; 82306; 82397; 82550; 82553; 82607; 82728; 82746; 82803; 82962; 83036; 83540; 83550; 83735; 83880; 83970; 84443; 84484; 85025; 85045; 85610; 85730; 86850; 86900; 86901; 86920; 87040; 87070; 87077; 87086; 87088; 87186; 93005; 93010; 93306; 94640; 94660; 94667; 94668; 94799; 96374; 99291; A9540; A9567; C1769; J0282; J0610; J0690; J0692; J1160; J1439; J1642; J1650; J1815; J1940; J2060; J2550; J2720; J2920; J2930; J3370; J3475; J3480; J3490; J7030; J7040; J7050; J7060; J7620; P9016; Q9969; S0028